=== PATIENT | female | born 1950 | race Caucasian/White ===

== ENCOUNTER → 2017-07-22 07:09 | Outpatient (CLI) | payer MEDICARE, OTHER, SELFPAY ==
--- NOTE | 2017-07-22 07:13 | NM_ITS ---
History and Indications: History of [place], hypertension, chest pain, palpitations and fatigue Procedure: Patient exercised on Eric protocol 7 minutes and 45 seconds, resting heart rate was 68 bpm resting blood pressure 146/85, with exercise maximum heart rate achieved was 1 47 bpm is equal to 96% of the maximum predicted heart rate and a blood pressure was 180/76. Test was stopped due to shortness of breath and fatigue, patient denied chest pain. Patient has good exercise capacity achieved 10.1mets of workload on treadmill, the blood pressure response to exercise was adequate. Electrocardiogram: Resting electrocardiogram showed sinus rhythm, with exercise there is less than 1.[address] segment depression noted from the baseline EKG. The EKG portion of the exercise Myoview is negative for ischemia. Cardiac stress and resting SPECT images: Cardiac stress and rest SPECT images were obtained using technetium 99 Myoview 10.2 mCi at rest and 31.6 mCi at stress, gated SPECT further analysis of segmental wall motion and calculation of the ejection fraction also done. Cardiac stress and the suspect images show uniform myocardial activity without any segmental perfusion abnormality, either derived ejection fraction is over 65% with no obvious regional wall motion abnormality, right ventricle is normal size and contractility. Conclusion: 1. The EKG portion of the exercise Myoview is negative for ischemia, patient has good exercise capacity achieved 10.1mets of workload on treadmill, the blood pressure response to exercise was adequate, there was no exercise-induced chest discomfort. 2. No obvious scintigraphic evidence of reversible ischemia seen, computer derived ejection fraction is over 65% with no obvious regional wall motion abnormality, right ventricle is normal size and contractility.
--- NOTE | 2017-07-22 07:13 | XR_ITS ---
XR chest 2V HISTORY: ITS.REASON: continued tobacco use, COPD ORDERING PHYSICIAN: Walker Knowles MD PATIENT AGE: 66 years COMPARISON: 10/13/2016 FINDINGS: The cardiomediastinal silhouette and pulmonary vascularity are within normal limits. The lungs are clear without infiltrates, suspicious nodules, or pleural effusions. There is hyperinflation with attenuation of peripheral pulmonary vessels consistent with obstructive chronic bronchitis No acute bony abnormalities. IMPRESSION: COPD, no acute finding
--- NOTE | 2017-07-22 07:55 | CA_ITS ---
PROCEDURE: 2-D M-mode and color Doppler study INDICATIONS FOR THE TEST: Chest pain COPD Heart Murmur Tobacco SmokingX Palpitations FatigueX Syncope Edema HypertensionXDiabetes Mellitus Rheumatic Fever SOB HANKINS Obesity HyperlipidemiaX Family History HD Additional History CAD 1 STENT PATIENT INFORMATION HEIGHT: 66 WEIGHT:115 GENDER: Female B/P:146/85 2-D/M-MODE INTERPRETATION: 2-D MEASUREMENTS OBSERVED VALUES IN CMS Right Ventricular Dimension (RVDd) 1.3 Interventricular Septum (Thickness)(IVsd) .7 Left Ventricular Internal Dimensions(LVIDd) 4.9 Left Ventricular Posterior Wall (Thickness)(LVPWd) .9 Aortic Root 2.0 Aortic Cusp Separation Left Atrial Dimensions (LAD) 2.2 2D 1. Left atrium is normal size, left ventricle is normal size, there is no concentric left ventricular hypertrophy, visually estimated ejection fraction 55% with no obvious regional wall motion abnormality. 2. The right atrium and right ventricle are mildly enlarged with normal contractility. 3. The aortic valve is minimally thickened and fibrosed. 4. The mitral and tricuspid valve are structurally normal. 5. The pulmonic valve is poorly visualized. 6. No significant pericardial effusion noted. DOPPLER INTERROGATION: Doppler interrogation of the aortic, mitral and tricuspid valvular presence of mild mitral and tricuspid regurgitation, calculated right ventricular systolic pressure is approximately 35 to 40 mmHg consistent with mild pulmonary hypertension. CONCLUSION: 1. Normal left ventricular size, preserved left ventricular systolic function, visually estimated ejection fraction 55% with no obvious regional wall motion abnormality. Diastolic parameters are inconclusive. 2. Mildly enlarged right ventricle with normal contractility. 3. Mild mitral and tricuspid regurgitation, calculated right ventricular systolic pressure is approximately 35 to 40 mmHg consistent with mild primary hypertension. 4. No significant pericardial effusion noted.
--- NOTE | 2017-07-22 09:34 | HMH.ITSHM ---
atorvastatin, calcium asa, lisionpril, bisoprolol
[2017-07-22 10:57] VITALS: PULSE 66; PULSE 76
== END ==
PROVIDERS: PCP Family Medicine; Visit Provider Internal Medicine
DX: Z95.5 Presence of coronary angioplasty implant and graft (principal); I25.10 Atherosclerotic heart disease of native coronary artery without angina pectoris; F17.200 Nicotine dependence, unspecified, uncomplicated; I10 Essential (primary) hypertension; E78.4 Other hyperlipidemia; J44.9 Chronic obstructive pulmonary disease, unspecified
CPT/HCPCS: 71046; 78452; 93017; 93306; 94060; 94640; 94726; 94729; A9502

== ENCOUNTER → 2017-11-04 12:19 | Outpatient (CLI) | payer MEDICARE, OTHER, SELFPAY ==
--- NOTE | 2017-11-04 12:28 | XR_ITS ---
XR chest 2V Ordering Physician: Ester Menchaca Patient Age: 67 years: Female HISTORY: ITS.REASON: WELL ADULT EXAM, TOBACCO USE smoker. COPD TECHNIQUE: PA and lateral chest COMPARISON : Prior chest film 10/13/2016 FINDINGS Again noted COPD with hyperexpansion along slight flattening of diaphragm and increased AP diameter on lateral view most evident. Relatively hyperlucent lungs throughout most evident towards apices. No pneumothorax. No pleural effusion. No focal lesion The heart, santiago and mediastinal structures unremarkable. . Mild atherosclerotic calcification aortic knob . Chest wall and T-spine appears intact.. IMPRESSION: Stable chest with Nothing definitely acute. No active cardiopulmonary disease Hyperexpansion reflecting COPD/emphysematous changes
== END ==
PROVIDERS: PCP Physician Assistant; Visit Provider Physician Assistant
DX: Z00.00 Encounter for general adult medical examination without abnormal findings (principal); Z72.0 Tobacco use
CPT/HCPCS: 71046

== ENCOUNTER → 2017-12-12 10:07 | Outpatient (CLI) | payer MEDICARE, OTHER, SELFPAY ==
[2017-12-13 09:03] LABS: Vitamin B12 822 pg/mL (232-1245)
== END ==
PROVIDERS: Visit Provider Physician Assistant
DX: E53.8 Deficiency of other specified B group vitamins (principal)
CPT/HCPCS: 36415; 82607

== ENCOUNTER → 2018-03-23 08:01 | Outpatient (CLI) | payer MEDICARE, OTHER, SELFPAY ==
--- NOTE | 2018-03-23 08:03 | CT_ITS ---
CT chest wo con HISTORY: Productive cough 3 weeks.. Smoker URI 4 weeks ago. Abnormal lung sounds. ITS.REASON: ABNORMAL LUNG SOUNDS, TOBACCO USE,ABNORMAL CHEST XRAY ORDERING PHYSICIAN: Ester Menchaca PATIENT AGE: 67 years COMPARISON: 2 view chest 5 08/27 and 03/05/2014, CT abdomen which includes lung bases from August 2015 Technique: No oral nor IV contrast utilized. Axial images obtained. Sagittal and coronal reformatted images are also generated and reviewed. All CT scans at the facility use one or more dose reduction, viz: automated exposure control, ma/kV adjustment per patient size (including targeted exams where dose is matched to indication, i.e. head), or iterative reconstruction technique. FINDINGS: LUNGS: No focal pneumonia or infiltrate. Hyperexpansion, COPD/ Emphysematous changes . Minimal scarring is scant fibrotic changes are seen at posterior sulcus region just above diaphragm.-Similar 2016 CT abdomen There is additional linear scarring and/or atelectasis seen at the inferior aspect the right middle lobe anteriorly, and just above the diaphragm.-Only new feature since 2016 Borderline airway thickening. No airway lesions evident No suspicious lung nodule or mass. Small Benign calcified granulomas bilaterally. : At periphery of RLL just adjacent to the major fissure right midlung, there is a subpleural 4.5 mm calcified granuloma axial image 49. At the L UL axial 34, there is a 4X 4.5 mm benign calcified granuloma. Associated small calcified hilar granulomas nodes, with a larger calcified node subcarinal region-the latter measuring 13 mm x 8 mm. Pleural spaces: No significant effusion. No evidence of pneumothorax. No significant mediastinal or hilar adenopathy otherwise.. Great vessels satisfactory. Ascending aorta generous with satisfactory. .. Heart is normal in size. No pericardial effusion. Coronary artery stents and calcifications noted Uppermost abdomen is stable since 2016. BONY STRUCTURES: No acute bony abnormalities apparent. T-spine intact. No significant rib findings chest wall unremarkable thin patient IMPRESSION: No acute infiltrate or findings... No focal pneumonia. No airway lesion. No significant lung mass nor lesion evident.... Hyperexpansion, COPD/. Emphysematous changes again noted (Only minimal additional linear scarring at the anterior right base since 2016) (Note: If 30 pack-year smoking history patient may qualify for annual screening screening low-dose chest CT)
== END ==
PROVIDERS: PCP Physician Assistant; Visit Provider Physician Assistant
DX: R09.89 Other specified symptoms and signs involving the circulatory and respiratory systems (principal); R93.89 Abnormal findings on diagnostic imaging of other specified body structures; Z72.0 Tobacco use
CPT/HCPCS: 71250

== ENCOUNTER → 2018-07-05 11:35 | Outpatient (CLI) | payer MEDICARE, OTHER, SELFPAY ==
[2018-07-05 12:56] LABS: Alanine Aminotransferase 32 U/L (12-78); Albumin Level 3.8 gm/dL (3.4-5.0); Alkaline Phosphatase 140 U/L (46-116); Aspartate Amino Transferase 23 U/L (15-37); Bilirubin,Direct 0.3 mg/dL (0.0-0.2); Bilirubin,Indirect 0.9 mg/dL (0.0-0.9); Bilirubin,Total 1.2 mg/dL (0.2-1.0); Chol/HDL Ratio 2.5 (1-3.5); Cholesterol 141 mg/dL (140-200); HDL Cholesterol 56 mg/dL (29-89); LDL Cholesterol 73 mg/dL (0-130); Triglycerides 62 mg/dL (30-200); VLDL Cholesterol 12 mg/dL (0-40)
== END ==
PROVIDERS: Visit Provider Internal Medicine
DX: I10 Essential (primary) hypertension; I25.10 Atherosclerotic heart disease of native coronary artery without angina pectoris; J44.9 Chronic obstructive pulmonary disease, unspecified; R00.2 Palpitations; Z95.5 Presence of coronary angioplasty implant and graft; E78.49 Other hyperlipidemia
CPT/HCPCS: 36415; 80061; 80076; 93225; 93226

== ENCOUNTER 2018-07-08 14:13 | Observation (INO) ==
--- NOTE | 2018-07-08 14:27 | Emergency Department Note ---
ED Disposition Clinical Impression: Alcohol use disorder, Anemia, Hypokalemia, Generalized muscle weakness Disposition: Still a Patient Condition on Discharge: Fair Referrals: Provider,Referral, [Primary Care Provider] - - Critical Care Critical Care Time: No Attestation: On 07/08/18, the high probability of a clinically significant, sudden or life threatening deterioration of the following system(s) required my full and direct attention, intervention and personal management. The time I documented below is in addition to time spent performing reported procedures but includes the following listed in this critical care notation. Medical Decision Making - Medical Records Medical records reviewed: Yes: I reviewed the patient's medical records. - Keny Inquiry Pt receiving controlled substance: No Keny was queried for this patient: No Vital Signs: 07/08/18 14:14 Temperature 97.8 F Temperature Source Oral Pulse Rate [Right Radial] 67 Respiratory Rate 20 Blood Pressure [Right Arm] 147/57 H Blood Pressure Mean [Right Arm] 87 02 Sat by Pulse Oximetry 99 Oxygen Delivery Method Room Air - Lab Data Lab Results 07/08/18 14:18: WBC 5.8, RBC 3.53 L, Hgb 11.1 L, Hct 35.1 L, MCV 99.5 H, MCH 31.4 H, MCHC 31.6 L, RDW 14.2, Plt Count 320, MPV 8.0, Neut % (Auto) 56.6, Lymph % (Auto) 36.2, Letcher % (Auto) 5.7, Eos % (Auto) 1.2, Baso % (Auto) 0.3, Neut # (Auto) 3.3, Lymph # (Auto) 2.1, Letcher # (Auto) 0.3, Eos # (Auto) 0.1, Baso # (Auto) 0.0 07/08/18 14:18: Sodium 140, Potassium 2.7 L*, Chloride 103, Carbon Dioxide 21, Anion Gap 15.7 H, BUN 7, Creatinine 0.62, Estimated Creat Clear 31, Estimated GFR 96, Est GFR ( Amer) 116, Glucose 101, Calcium 8.5, Total Bilirubin 0.8, AST 20, ALT 25, Alkaline Phosphatase 138 H, Total Creatine Kinase 60, Troponin I < 0.02, Total Protein 6.0 L, Albumin 3.5, Globulin 2.5, Albumin/Globulin Ratio 1.4, Salicylates 1.0 L, Acetaminophen 7.8 L, Plasma/Serum Alcohol 160 H 07/08/18 14:18: Magnesium 2.0 07/08/18 14:38: Urine Opiates Screen Negative, Urine Methadone Screen Negative, Ur Barbituates Screen Negative, Ur Phencyclidine Scrn Negative, Ur Amphetamines Screen Negative, U Benzodiazepines Scrn Negative, Urine Cocaine Screen Negative, U Marijuana (THC) Screen Negative 07/08/18 14:38: Urine Color Yellow, Urine Appearance Clear, Urine pH 6.5, Ur Specific [place] <= 1.005, Urine Protein Negative, Urine Glucose (UA) Negative, Urine Ketones Negative, Urine Blood Negative, Urine Nitrate Negative, Urine Bilirubin Negative, Urine Urobilinogen 0.2, Ur Leukocyte Esterase Negative, Urine WBC Occasional, Ur Squamous Epith Cells Occasional, Urine Bacteria Trace Result diagrams: 07/08/18 14:18 07/08/18 14:18 Orders (Tests/Meds): ED MEDICATIONS Generic Name Dose Route Start Last Admin Trade Name Freq PRN Reason Stop Dose Admin Sodium Chloride 1,000 mls @ 999 mls/hr 07/08/18 15:00 07/08/18 15:01 Sod Chlor 0.9% 1000ml Bag IV 07/08/18 16:00 999 mls/hr .Q1H1M ANA LUISA Administration Discontinued Medications Generic Name Dose Route Start Last Admin Trade Name Freq PRN Reason Stop Dose Admin Potassium Chloride 20 meq 07/08/18 15:24 Klor-Con 20meq Tablet PO 07/08/18 15:25 ONCE ONE ORDERS Category Date Time Status Acetaminophen Stat Lab 07/08/18 14:18 Results Cardiac Enzymes Stat Lab 07/08/18 14:18 Results Comprehensive Metabolic Panel Stat Lab 07/08/18 14:18 Results Ethyl Alcohol Stat Lab 07/08/18 14:18 Results Salicylate Stat Lab 07/08/18 14:18 Results UA [Urinalysis and Microscopic] Stat Lab 07/08/18 14:38 Ordered ABG [Arterial Blood Gas] Stat RT 07/08/18 14:30 Ordered - CT Data CT Scan: Head Time Received: 15:[address] Reviewed: Yes: I have viewed the radiologist's interpretation Preliminary Findings: Abnormal Findings Narrative: IMPRESSION:........................... 1. No Acute Intracranial Findings. . No Hemorrhage. No Territorial Infarct. 2. Diffuse cerebral atrophy. 3.. Also note a ovoid 9 mm CSF density at floor of left basal ganglia..- This is an remote OLD feature: either reflecting small old lacunar infarct vs merely prominent perivascular space.. . 4. Additional observation: Previous Left Mastoid Antrectomy with diffuse mastoid effusion involving left mastoid tip air cells & posterior left mastoid air cells. The more superior left mastoid air cells are clear. Middle ear clear bilaterally.. - ECG Data Tracing #1 Normal sinus rhythm 68/min normal ST segment and T waves no acute finding. Normal EKG. ECG initial impression date: 07/08/18 ECG initial impression time: 14:15 Medical Decision Narrative: The patient remained hemodynamically stable but generally weak although she was able tp withdraw her legs with when her neurological exam was repeated, her alcohol level was 160 and her potassium was 2.7. I sopke with Dr Alejandra who agreed to admit her for IV potassium replacement and neuro checks. Altered Mental Status HPI - General Stated Complaint: weakness Time Seen by Provider: 07/08/18 14:15 Mode of Arrival: Family Vehicle - History of Present Illness HPI narrative: 67 years old white female who was last witnessed normal 4 hours ago and she drank 2 beams 'WhiskY". She became unable to function told her to take her to the ER. She denies having chest pain palpation shortness of breath nausea vomiting diarrhea. She chills dysuria hematuria frequency but there is no numbness or tingling involving the upper or lower extremities. MD complaint: weakness Onset (ago): hour(s) Time: 10:00 Timing confirmed by: spouse Severity: moderate Consistency of symptoms: constant Context: alcohol abuse Associated symptoms: denies other symptoms - Related Data Home Medications Medication Instructions Recorded Confirmed multivitamin tablet 1 tab PO QAM 08/02/17 07/05/18 aspirin 81 mg tablet,delayed 81 mg PO DAILY tab 11/01/17 07/05/18 release enoxaparin 40 mg/0.4 mL 40 mg SQ DAILY 07/05/18 07/05/18 subcutaneous syringe Previous Rx's Medication Instructions Recorded Tramadol HCl [Ultram 50mg 50 mg PO Q6HP PRN #10 tab 05/21/18 tablet] atorvastatin 80 mg tablet 80 mg PO DAILY #90 tab 07/07/18 Allergies Allergy/AdvReac Type Severity Reaction Status Date / Time amoxicillin [AMOXICILLIN] Allergy Intermediate I-HIVES Verified 07/08/18 14:26 Sulfa (Sulfonamide Allergy Unknown I-HIVES Verified 07/08/18 14:26 Antibiotics) [SULFA (SULFONAMIDE ANTIBIOTICS)] [facility] History - Hepatitis A Screen Attestation statement:: This patient has been screened for Hepatitis A risk factors. I have reviewed the patient's past medical history: Yes Medical History: Reports:: Chronic Obstructive Pulmonary Disease (COPD), Coronary Artery Disease, Gastroesophageal Reflux Disease(GERD), Hyperlipidemia, Hypertension, Myocardial Infarction Other Medical History: Reports: Anemia, Arthritis Laterality Cases: Right: Arthroscopy Hip, Bilateral: Arthroscopy Knee Other Surgeries: Yes: Coronary Stent, Hysterectomy-Total, Other - Social History Smoking Status: Current every day smoker Tobacco Type: cigarettes Alcohol Intake: never Alcohol Intake Frequency:: a few times a month Substance Use Type: denies use Occupational Status: retired Family Hx:: Coronary Artery Disease ROS Obtained: Yes All systems reviewed & no additional complaints Physical Exam - General General appearance: alert, in no apparent distress, appears intoxicated - Head Head exam: atraumatic, normocephalic, normal inspection - Eye Eye exam: Present: normal appearance, PERRL, EOMI. Absent: scleral icterus, nystagmus - ENT ENT exam: Present: normal exam, normal oropharynx, mucous membranes moist, TM's normal bilaterally, normal external ear exam - Neck Neck exam: Present: normal inspection, full ROM, trachea midline. Absent: tenderness, meningismus, lymphadenopathy - Chest Chest inspection: Present: normal inspection, symmetric chest wall rise. Absent: tenderness - Respiratory Respiratory exam: Present: normal lung sounds bilaterally. Absent: respiratory distress, wheezes, stridor - Cardiovascular Cardiovascular exam: Present: regular rate, normal rhythm, normal heart sounds. Absent: JVD - Abdominal Exam Abdominal exam: Present: soft, normal bowel sounds. Absent: distention, tenderness, guarding, rebound, rigidity - Extremities Exam Extremities exam: Present: normal inspection, full ROM, normal capillary refill. Absent: tenderness, pedal edema, joint swelling, calf tenderness - Back Exam Back exam: Present: normal inspection. Absent: tenderness, CVA tenderness (R), CVA tenderness (L), paraspinal tenderness, vertebral tenderness - Neurological Exam Neurological exam: Present: alert, CN II-XII intact, reflexes normal, other (Patient speaks fluently not cough for examination, she moves for extremity while having a catheterization, intact pinprick sensation to 4 extremities, she had bilateral lower extremity withdrawals to Babinski. ) - Psychiatric Psychiatric exam: Present: normal affect, normal mood - Skin Skin exam: Present: warm, dry, intact, normal color - Lymphatic Lymphatic Findings: no adenopathy
[2018-07-08 14:38] LABS: Basophils % 0.3 % (0.1-2.0); Eosinophils # 0.1 K/mm3 (0.0-0.4); Eosinophils % 1.2 % (0.1-12.0); Hematocrit 35.1 % (37.0-47.0); Hemoglobin 11.1 g/dL (12.2-16.2); Lymphocytes # 2.1 K/mm3 (0.7-4.5); Lymphocytes % 36.2 % (10-50); Mean Corpuscular HGB Conc 31.6 g/dL (31.8-35.4); Mean Corpuscular Hemoglobin 31.4 pg (27.0-31.2); Mean Corpuscular Volume 99.5 fl (81-99); Monocytes # 0.3 K/mm3 (0.1-1.0); Monocytes % 5.7 % (1.7-9.3); Neutrophils # 3.3 K/mm3 (1.8-7.8); Neutrophils % 56.6 % (37.0-80.0); Platelet Count 320 K/mm3 (142-424); Red Blood Count 3.53 M/mm3 (4.20-5.40); Red Cell Distribution Width 14.2 % (11.5-17.5); White Blood Count 5.8 K/mm3 (4.8-10.8)
[2018-07-08 14:43] LABS: Microscopic, Urine URINE MICROSCOPIC (MICROSCOPIC)
[2018-07-08 14:45] LABS: Appearance,Urine CLEAR (Clear); Bilirubin,Urine Negative (Negative); Blood, Urine Negative (Negative); Color,Urine YELLOW (Yellow); Glucose,Urine (UA) Negative (Negative); Ketones,Urine Negative (Negative); Leukocyte Esterase,Urine Negative (Negative); PH,Urine 6.5 (5.0-8.5); Protein,Urine Negative (Negative); Specific Gravity, Urine <= 1.005 (1.005-1.030); Urobilinogen,Urine 0.2 EU/dl (0.2)
[2018-07-08 14:54] LABS: Amphetamine/Metha Screen,Urine Negative ng/mL (<1000); Barbiturates Screen,Urine Negative ng/mL (<200); Benzodiazepines Screen,Urine Negative ng/mL (<200); Cannabinoid Screen,Urine Negative ng/mL (<50); Cocaine Screen,Urine Negative ng/mL (<300); Methadone Screen,Urine Negative ng/mL (<300); Opiate Screen,Urine Negative ng/mL (<300); Phencyclidine Screen,Urine Negative ng/mL (<25)
[2018-07-08 15:06] LABS: Bacteria,Urine Trace /lpf; Squamous Epithelial Cell,Urine Occasional #/hpf (0-5); WBC,Urine Occasional #/hpf (0-3)
[2018-07-08 15:21] LABS: Bilirubin,Total 0.8 mg/dL (0.2-1.0); Blood Urea Nitrogen 7 mg/dL (7-18); Calcium 8.5 mg/dL (8.5-10.1); Carbon Dioxide 21 mmol/L (21.0-32.0); Chloride 103 mmol/L (98-107); Creatine Kinase 60 U/L (26-192); Glucose 101 mg/dL (74-106); Sodium 140 mmol/L (136-145)
[2018-07-08 15:22] LABS: Acetaminophen 7.8 ug/mL (10-30); Alanine Aminotransferase 25 U/L (12-78); Albumin Level 3.5 gm/dL (3.4-5.0); Albumin/Globulin Ratio 1.4 (1.1-1.8); Alkaline Phosphatase 138 U/L (46-116); Aspartate Amino Transferase 20 U/L (15-37); Ethyl Alcohol 160 mg/dL (0-99); Globulin 2.5 gm/dl (1.3-3.2)
[2018-07-08 15:37] LABS: Potassium 2.7 mmoL/L (3.5-5.1)
[2018-07-08 15:39] LABS: Anion Gap 18.7 mEq/L (5-15)
[2018-07-08 16:02] LABS: ABG Base Excess -4.8 mmol/L (-2.4-2.3); ABG Oxygen Saturation 98 % (90-100); ABG PCO2 33.4 mmhg (35.0-45.0); ABG PO2 119.9 mmhg (80-100); ABG TCO2 21.1 mmhg (23-27); Allen's Test Acceptable; Oxygen ROOM AIR %
[2018-07-09 06:31] LABS: Basophils % 0.2 % (0.1-2.0); Eosinophils # 0.1 K/mm3 (0.0-0.4); Eosinophils % 1.7 % (0.1-12.0); Hematocrit 31.5 % (37.0-47.0); Lymphocytes # 1.3 K/mm3 (0.7-4.5); Lymphocytes % 28.8 % (10-50); Mean Corpuscular HGB Conc 31.4 g/dL (31.8-35.4); Mean Platelet Volume 8.6 fl (7.4-10.4); Monocytes # 0.3 K/mm3 (0.1-1.0); Monocytes % 6.1 % (1.7-9.3); Neutrophils # 2.9 K/mm3 (1.8-7.8); Neutrophils % 63.1 % (37.0-80.0); Platelet Count 258 K/mm3 (142-424); Red Blood Count 3.18 M/mm3 (4.20-5.40); Red Cell Distribution Width 14.4 % (11.5-17.5); White Blood Count 4.6 K/mm3 (4.8-10.8)
[2018-07-09 06:33] LABS: Hemoglobin 9.9 g/dL (12.2-16.2)
[2018-07-09 07:00] LABS: Anion Gap 11.4 mEq/L (5-15); Calcium 8.6 mg/dL (8.5-10.1); Free T4 (Free Thyroxine) 1.03 ng/dl (0.76-1.46); Potassium 4.4 mmoL/L (3.5-5.1); Thyroid Stimulating Hormone 1.94 uIU/ml (0.358-3.740)
--- NOTE | 2018-07-09 08:55 | H&P/Discharge Summary ---
General - General Admission date:: 07/08/18 Discharge date: 07/09/18 *Admission Date: 07/08/18 *Chief complaint: Weakness *History of present illness: 67-year-old white female presented to the ED after feeling weakness and almost paralysis to a point where she cannot move. She mentioned that she went to a casino yesterday had a 2 Jacob Beam whiskey with coke. She was playing the slot machines and noticed that he is not able to move her extremities and was unable to function. She told her to take her to the ER. She denied having any chest pain, palpitation, shortness of breath, nausea, vomiting, and diarrhea. She denied having any numbness or tingling sensation in the upper or lower extremities bilaterally. She also mentions that she have had this drink before and had no problems. In the ED most of her workup was within normal limits except her potassium was extremely low at 2.7. [facility] History I have reviewed the patient's past medical history: Yes Medical History: Reports:: Chronic Obstructive Pulmonary Disease (COPD), Coronary Artery Disease, Gastroesophageal Reflux Disease(GERD), Hyperlipidemia, Hypertension, Myocardial Infarction Denies:: Cancer, Diabetes Mellitus Type 1, Diabetes Mellitus Type 2, MRSA Have you ever received a pneumonia vaccine?: Yes Have you received a flu vaccine this season?: Yes Other Medical History: Reports: Anemia, Arthritis, Cataracts Laterality Cases: Right: Arthroscopy Hip, Other, Bilateral: Arthroscopy Knee, Tonsillectomy Other Surgeries: Yes: Coronary Stent, Hysterectomy-Total, Other Amputation: No Fractures: Yes (femur) - *Social History Educational Level: Completed High School Smoking Status: Current every day smoker Tobacco Type: cigarettes Alcohol Intake: current Alcohol Intake Frequency:: a few times a week Substance Use Type: denies use Occupational Status: retired Housing: house Household Members: spouse Travel in the last 8 weeks: None - Psychiatric History Expresses thoughts of harming self/others: None Suicide Plan Description: No Plan *Family Hx:: Coronary Artery Disease Review of Systems - Constitutional Reports lack of energy - Eyes Denies blind spots, Denies blurry vision, Denies change in vision - ENT Denies abnormal hearing, Denies neck pain, Denies nose pain - *Cardiovascular Denies chest pain, Denies chest pain at rest, Denies chest pain with activity - *Respiratory Denies change in phlegm color, Denies chest congestion, Denies cough - *Gastrointestinal Denies abdominal pain, Denies belching - *Musculoskeletal Denies stiffness - Integumentary/Breasts Denies hair loss - *Neurologic Denies abnormal walking - Psychiatric Denies abnormal sleep pattern - Endocrine Denies cold intolerance - Hematologic/Lymphatic Denies easy bleeding - Allergic/Immunologic Denies GI upset with certain foods Exam Vital signs and Labs for Last 24 Hours: Temp Pulse Resp BP Pulse Ox 98.3 F 67 15 118/63 98 07/09/18 04:00 07/09/18 04:00 07/09/18 04:00 07/09/18 04:00 07/09/18 04:00 Laboratory Results - last 24 hr 07/08/18 14:18: WBC 5.8, RBC 3.53 L, Hgb 11.1 L, Hct 35.1 L, MCV 99.5 H, MCH 31.4 H, MCHC 31.6 L, RDW 14.2, Plt Count 320, MPV 8.0, Neut % (Auto) 56.6, Lymph % (Auto) 36.2, [place] % (Auto) 5.7, Eos % (Auto) 1.2, Baso % (Auto) 0.3, Neut # (Auto) 3.3, Lymph # (Auto) 2.1, [place] # (Auto) 0.3, Eos # (Auto) 0.1, Baso # (Auto) 0.0 07/08/18 14:18: Sodium 140, Potassium 2.7 L*, Chloride 103, Carbon Dioxide 21, Anion Gap 18.7 H, BUN 7, Creatinine 0.62, Estimated Creat Clear 31, Estimated GFR 96, Est GFR ( Amer) 116, Glucose 101, Calcium 8.5, Total Bilirubin 0.8, AST 20, ALT 25, Alkaline Phosphatase 138 H, Total Creatine Kinase 60, CK-MB (CK-2) 0.9, CK-MB (CK-2) Rel Index 1.5, Troponin I < 0.02, Total Protein 6.0 L, Albumin 3.5, Globulin 2.5, Albumin/Globulin Ratio 1.4, Salicylates 1.0 L, Acetaminophen 7.8 L, Plasma/Serum Alcohol 160 H 07/08/18 14:18: Magnesium 2.0 07/08/18 14:38: Urine Opiates Screen Negative, Urine Methadone Screen Negative, Ur Barbituates Screen Negative, Ur Phencyclidine Scrn Negative, Ur Amphetamines Screen Negative, U Benzodiazepines Scrn Negative, Urine Cocaine Screen Negative, U Marijuana (THC) Screen Negative 07/08/18 14:38: Urine Color Yellow, Urine Appearance Clear, Urine pH 6.5, Ur Specific [place] <= 1.005, Urine Protein Negative, Urine Glucose (UA) Negative, Urine Ketones Negative, Urine Blood Negative, Urine Nitrate Negative, Urine Bilirubin Negative, Urine Urobilinogen 0.2, Ur Leukocyte Esterase Negative, Urine WBC Occasional, Ur Squamous Epith Cells Occasional, Urine Bacteria Trace 07/08/18 15:30: Specimen Source Right radial, O2 % Room air, ABG pH 7.40, ABG pCO2 33.4 L, ABG pO2 119.9 H, ABG HCO3 20.0 L, ABG Total CO2 21.1 L, ABG O2 Saturation 98, ABG Base Excess -4.8 L, Jamel Test Acceptable 07/09/18 06:22: WBC 4.6 L, RBC 3.18 L, Hgb 9.9 L D, Hct 31.5 L, MCV 99.0, MCH 31.0, MCHC 31.4 L, RDW 14.4, Plt Count 258, MPV 8.6, Neut % (Auto) 63.1, Lymph % (Auto) 28.8, [place] % (Auto) 6.1, Eos % (Auto) 1.7, Baso % (Auto) 0.2, Neut # (Auto) 2.9, Lymph # (Auto) 1.3, [place] # (Auto) 0.3, Eos # (Auto) 0.1, Baso # (Auto) 0.0 07/09/18 06:22: Sodium 143, Potassium 4.4 D, Chloride 110 H, Carbon Dioxide 26 D, Anion Gap 11.4, BUN 4 L D, Creatinine 0.46 L D, Estimated Creat Clear 46, Estimated GFR 135, Est GFR ( Amer) 163 D, Glucose 101, Calcium 8.6, Magnesium 2.1, TSH 1.94, Free T4 1.03, Plasma/Serum Alcohol 0 I & O for Last 24 hours: Intake & Output 07/06/18 07/07/18 07/08/18 07/09/18 11:59 11:59 11:59 11:59 Intake Total 1920 / 1920 Output Total 1450 / 1450 Balance 470 / 470 Weight 118 lb 5 oz - *Routine HEENT Exam Head: Present: normocephalic Eye: Present: EOMI, PERRL ENT: Present: mucous membranes moist - *Routine Neck Exam Present: supple, full ROM - *Routine Respiratory Exam Present: CTA bilaterally - *Routine Cardiovascular Exam Present: RRR - *Routine Abdominal Exam Present: soft, normoactive bowel sounds. Absent: tenderness - *Routine Extremities Exam Present: full ROM, normal capillary refill. Absent: edema - *Routine Skin Exam Present: intact - *Routine Neurological Exam Present: alert, oriented X3, moving all extremities, normal tone. Absent: motor deficit, altered mental status - Routine Psychiatric Exam Present: normal affect Hospital Course Hospital Course: She was admitted to our ED for hypokalemic periodic paralysis with a potassium of 2.7. Workup for hypokalemia was negative so this could be secondary to dietary insufficiency. Overnight she got D5 half-normal saline with 40 of potassium. On 07/09/2018 her potassium was 4.4. Patient's symptoms have completely resolved at this time. Patient is to be discharged home today. I advised her strongly to follow-up with her family doctor in [place] for a repeat potassium in 1 week. Also advised that she might have to take potassium supplements daily if her potassium is low on the outpatient basis. Patient voiced understanding to all the above. Results Labs on day of discharge: Labs from last 24 hours 07/09/18 07/09/18 07/08/18 06:22 06:22 15:30 WBC 4.6 L RBC 3.18 L Hgb 9.9 L D Hct 31.5 L MCV 99.0 MCH 31.0 MCHC 31.4 L RDW 14.4 Plt Count 258 MPV 8.6 Neut % (Auto) 63.1 Lymph % (Auto) 28.8 [place] % (Auto) 6.1 Eos % (Auto) 1.7 Baso % (Auto) 0.2 Neut # (Auto) 2.9 Lymph # (Auto) 1.3 [place] # (Auto) 0.3 Eos # (Auto) 0.1 Baso # (Auto) 0.0 Specimen Source Right radial O2 % Room air ABG pH 7.40 ABG pCO2 33.4 L ABG pO2 119.9 H ABG HCO3 20.0 L ABG Total CO2 21.1 L ABG O2 Saturation 98 ABG Base Excess -4.8 L Jamel Test Acceptable Sodium 143 Potassium 4.4 D Chloride 110 H Carbon Dioxide 26 D Anion Gap 11.4 BUN 4 L D Creatinine 0.46 L D Estimated Creat Clear 46 Estimated GFR 135 Est GFR ( Amer) 163 D Glucose 101 Calcium 8.6 Magnesium 2.1 Total Bilirubin AST ALT Alkaline Phosphatase Total Creatine Kinase CK-MB (CK-2) CK-MB (CK-2) Rel Index Troponin I Total Protein Albumin Globulin Albumin/Globulin Ratio TSH 1.94 Free T4 1.03 Urine Color Urine Appearance Urine pH Ur Specific [place] Urine Protein Urine Glucose (UA) Urine Ketones Urine Blood Urine Nitrate Urine Bilirubin Urine Urobilinogen Ur Leukocyte Esterase Urine WBC Ur Squamous Epith Cells Urine Bacteria Salicylates Urine Opiates Screen Urine Methadone Screen Acetaminophen Ur Barbituates Screen Ur Phencyclidine Scrn Ur Amphetamines Screen U Benzodiazepines Scrn Urine Cocaine Screen U Marijuana (THC) Screen Plasma/Serum Alcohol 0 07/08/18 07/08/18 07/08/18 14:38 14:38 14:18 WBC RBC Hgb Hct MCV MCH MCHC RDW Plt Count MPV Neut % (Auto) Lymph % (Auto) [place] % (Auto) Eos % (Auto) Baso % (Auto) Neut # (Auto) Lymph # (Auto) [place] # (Auto) Eos # (Auto) Baso # (Auto) Specimen Source O2 % ABG pH ABG pCO2 ABG pO2 ABG HCO3 ABG Total CO2 ABG O2 Saturation ABG Base Excess Jamel Test Sodium Potassium Chloride Carbon Dioxide Anion Gap BUN Creatinine Estimated Creat Clear Estimated GFR Est GFR ( Amer) Glucose Calcium Magnesium 2.0 Total Bilirubin AST ALT Alkaline Phosphatase Total Creatine Kinase CK-MB (CK-2) CK-MB (CK-2) Rel Index Troponin I Total Protein Albumin Globulin Albumin/Globulin Ratio TSH Free T4 Urine Color Yellow Urine Appearance Clear Urine pH 6.5 Ur Specific [place] <= 1.005 Urine Protein Negative Urine Glucose (UA) Negative Urine Ketones Negative Urine Blood Negative Urine Nitrate Negative Urine Bilirubin Negative Urine Urobilinogen 0.2 Ur Leukocyte Esterase Negative Urine WBC Occasional Ur Squamous Epith Cells Occasional Urine Bacteria Trace Salicylates Urine Opiates Screen Negative Urine Methadone Screen Negative Acetaminophen Ur Barbituates Screen Negative Ur Phencyclidine Scrn Negative Ur Amphetamines Screen Negative U Benzodiazepines Scrn Negative Urine Cocaine Screen Negative U Marijuana (THC) Screen Negative Plasma/Serum Alcohol 07/08/18 07/08/18 14:18 14:18 WBC 5.8 RBC 3.53 L Hgb 11.1 L Hct 35.1 L MCV 99.5 H MCH 31.4 H MCHC 31.6 L RDW 14.2 Plt Count 320 MPV 8.0 Neut % (Auto) 56.6 Lymph % (Auto) 36.2 [place] % (Auto) 5.7 Eos % (Auto) 1.2 Baso % (Auto) 0.3 Neut # (Auto) 3.3 Lymph # (Auto) 2.1 [place] # (Auto) 0.3 Eos # (Auto) 0.1 Baso # (Auto) 0.0 Specimen Source O2 % ABG pH ABG pCO2 ABG pO2 ABG HCO3 ABG Total CO2 ABG O2 Saturation ABG Base Excess Jamel Test Sodium 140 Potassium 2.7 L* Chloride 103 Carbon Dioxide 21 Anion Gap 18.7 H BUN 7 Creatinine 0.62 Estimated Creat Clear 31 Estimated GFR 96 Est GFR ( Amer) 116 Glucose 101 Calcium 8.5 Magnesium Total Bilirubin 0.8 AST 20 ALT 25 Alkaline Phosphatase 138 H Total Creatine Kinase 60 CK-MB (CK-2) 0.9 CK-MB (CK-2) Rel Index 1.5 Troponin I < 0.02 Total Protein 6.0 L Albumin 3.5 Globulin 2.5 Albumin/Globulin Ratio 1.4 TSH Free T4 Urine Color Urine Appearance Urine pH Ur Specific [place] Urine Protein Urine Glucose (UA) Urine Ketones Urine Blood Urine Nitrate Urine Bilirubin Urine Urobilinogen Ur Leukocyte Esterase Urine WBC Ur Squamous Epith Cells Urine Bacteria Salicylates 1.0 L Urine Opiates Screen Urine Methadone Screen Acetaminophen 7.8 L Ur Barbituates Screen Ur Phencyclidine Scrn Ur Amphetamines Screen U Benzodiazepines Scrn Urine Cocaine Screen U Marijuana (THC) Screen Plasma/Serum Alcohol 160 H - Impressions Laboratory Tests 07/08/18 07/09/18 14:18 06:22 Potassium 2.7 L* 4.4 D DS: Diagnosis - Discharge Diagnosis (1) Hypokalemic periodic paralysis Status: Acute (2) CAD (coronary artery disease) Status: Chronic (3) Chronic obstructive lung disease Status: Chronic (4) Hyperlipidemia Status: Chronic (5) Smoker Status: Chronic Discharge Medications - Medications for Discharge Home Medication List at Discharge: Continue aspirin 81 mg tablet,delayed release 81 mg PO DAILY tab enoxaparin 40 mg/0.4 mL subcutaneous syringe 40 mg SQ DAILY atorvastatin 80 mg tablet 80 mg PO DAILY #90 tab Tramadol HCl [Ultram 50mg tablet] 50 mg PO Q6HP PRN #10 tab PRN Reason: Pain No Action multivitamin tablet 1 tab PO QAM Disposition Disposition: Home, Self-Care
--- NOTE | 2018-07-09 08:58 | Pharmacy Consult Notes ---
[facility] Pharmacy VTE Monitoring - Patient Demographics Admission date: 07/08/18 Report Date: 07/09/18 Time: 08:58 Allergies/Adverse Reactions: Patient Allergies amoxicillin [AMOXICILLIN] Allergy (Intermediate, Verified 07/08/18 14:26) I-HIVES Sulfa (Sulfonamide Antibiotics) [SULFA (SULFONAMIDE ANTIBIOTICS)] Allergy (Unknown, Verified 07/08/18 14:26) I-HIVES Height: 1.68 m Weight: 53.666 kg Patient Problems: Current Active Problems Alcohol use disorder (Acute) Anemia (Acute) Hypokalemia (Acute) Generalized muscle weakness (Acute) - VTE Risk Labs: VTE Related Lab Results Hgb 9.9 g/dL (12.2-16.2) L D 07/09/18 06:22 Hct 31.5 % (37.0-47.0) L 07/09/18 06:22 Plt Count 258 K/mm3 (142-424) 07/09/18 06:22 BUN 4 mg/dL (7-18) L D 07/09/18 06:22 Creatinine 0.46 mg/dL (0.55-1.02) L D 07/09/18 06:22 Estimated Creat Clear 46 mL/min (50-200) 07/09/18 06:22 VTE Score: 2 - Prophylaxis VTE Prophylaxis Ordered?: Yes Types of VTE Prophylaxis: TEDS Knee High Location of Applied Device: Bilateral Lower Extremeties
== END 2018-07-09 10:01 | disposition home or self-care (01) ==
LOC: ER 14:13 → 2ND 14:13
PROVIDERS: ADMIT Emergency Medicine; ATTEND Emergency Medicine
CPT/HCPCS: 36415; 70450; 80048; 80053; 80305; 80329; 81001; 82550; 82553; 82803; 83735; 84439; 84443; 84484; 85025; 93005; 96365; 99281; G0378

== ENCOUNTER → 2018-07-18 10:39 | Outpatient (CLI) | payer MEDICARE, OTHER, SELFPAY ==
[2018-07-18 13:34] LABS: Basophils % 0.2 % (0.1-2.0); Eosinophils # 0.1 K/mm3 (0.0-0.4); Eosinophils % 2.2 % (0.1-12.0); Hematocrit 39.3 % (37.0-47.0); Hemoglobin 12.5 g/dL (12.2-16.2); Lymphocytes # 1.8 K/mm3 (0.7-4.5); Lymphocytes % 33.1 % (10-50); Mean Corpuscular HGB Conc 31.9 g/dL (31.8-35.4); Mean Corpuscular Hemoglobin 31.3 pg (27.0-31.2); Mean Platelet Volume 7.5 fl (7.4-10.4); Monocytes # 0.3 K/mm3 (0.1-1.0); Monocytes % 5.3 % (1.7-9.3); Neutrophils # 3.2 K/mm3 (1.8-7.8); Neutrophils % 59.2 % (37.0-80.0); Platelet Count 287 K/mm3 (142-424); Red Blood Count 4.01 M/mm3 (4.20-5.40); Red Cell Distribution Width 14.1 % (11.5-17.5); White Blood Count 5.4 K/mm3 (4.8-10.8)
[2018-07-18 13:42] LABS: Alanine Aminotransferase 26 U/L (12-78); Albumin Level 4.2 gm/dL (3.4-5.0); Alkaline Phosphatase 169 U/L (46-116); Aspartate Amino Transferase 18 U/L (15-37); Bilirubin,Total 1.3 mg/dL (0.2-1.0); Blood Urea Nitrogen 9 mg/dL (7-18); Calcium 9.4 mg/dL (8.5-10.1); Carbon Dioxide 27 mmol/L (21.0-32.0); Chloride 102 mmol/L (98-107); Creatinine,Serum 0.56 mg/dL (0.55-1.02); Estimated Glomerular Filt Rate 108 ml/min (>60); GFR (African American) 130 ML/MIN (>60); Globulin 2.1 gm/dl (1.3-3.2); Glucose 91 mg/dL (74-106); Sodium 142 mmol/L (136-145); Total Protein,Serum 6.3 gm/dL (6.4-8.2)
[2018-07-20 06:13] LABS: Vitamin B12 988 pg/mL (232-1245)
== END ==
PROVIDERS: PCP Physician Assistant; Visit Provider Physician Assistant
DX: E87.6 Hypokalemia (principal); E53.8 Deficiency of other specified B group vitamins
CPT/HCPCS: 36415; 80053; 82607; 85025

== ENCOUNTER → 2019-01-25 15:05 | Outpatient (CLI) | payer MEDICARE, OTHER, SELFPAY ==
[2019-01-25 15:35] LABS: Basophils % 0.2 % (0.1-2.0); Eosinophils # 0.1 K/mm3 (0.0-0.4); Eosinophils % 0.7 % (0.1-12.0); Hematocrit 46.8 % (37.0-47.0); Lymphocytes # 2.7 K/mm3 (0.7-4.5); Lymphocytes % 33.7 % (10-50); Mean Corpuscular HGB Conc 32.1 g/dL (31.8-35.4); Mean Corpuscular Hemoglobin 31.2 pg (27.0-31.2); Mean Corpuscular Volume 97.2 fl (81-99); Mean Platelet Volume 7.4 fl (7.4-10.4); Monocytes # 0.4 K/mm3 (0.1-1.0); Monocytes % 4.6 % (1.7-9.3); Neutrophils # 4.9 K/mm3 (1.8-7.8); Neutrophils % 60.8 % (37.0-80.0); Platelet Count 227 K/mm3 (142-424); Red Blood Count 4.82 M/mm3 (4.20-5.40); Red Cell Distribution Width 12.9 % (11.5-17.5); White Blood Count 8.1 K/mm3 (4.8-10.8)
[2019-01-25 18:51] LABS: Anion Gap 14.1 mEq/L (5-15); Blood Urea Nitrogen 8 mg/dL (7-18); Calcium 8.9 mg/dL (8.5-10.1); Carbon Dioxide 28 mmol/L (21.0-32.0); Chloride 102 mmol/L (98-107); Creatinine,Serum 0.53 mg/dL (0.55-1.02); Estimated Glomerular Filt Rate 114 ml/min (>60); GFR (African American) 138 ML/MIN (>60); Glucose 80 mg/dL (74-106); Potassium 4.1 mmoL/L (3.5-5.1); Sodium 140 mmol/L (136-145)
== END ==
PROVIDERS: Visit Provider Internal Medicine Cardiovascular Disease
DX: R06.00 Dyspnea, unspecified; E78.5 Hyperlipidemia, unspecified; I10 Essential (primary) hypertension; I20.9 Angina pectoris, unspecified; Z95.5 Presence of coronary angioplasty implant and graft
CPT/HCPCS: 36415; 80048; 83880; 85025

== ENCOUNTER → 2019-02-01 06:55 | Outpatient (CLI) | payer MEDICARE, OTHER, SELFPAY ==
--- NOTE | 2019-02-01 | CA_ITS ---
APPROVED REPORT Exam: Pharmacologic Technologist: tommy winston, Ht: 5 ft 6 in Wt: 112 lbs BSA: 1.56 m2 HR: 61 bpm BP: 131/78 mmHg Indications: Atypical Angina, CP, Fatigue Medical History Medications: Lisinopril,,,,, Metoprolol,,,,, Atorvastatin,,,,, Vitamin B,,,,, Multivitamin,,,,, OmPERAZOLE,,,,, Combivent inhaler,,,,, Stress Test Details Test: LEXISCAN HR Resting HR: 60 bpm Max Heart Rate (APMHR): 151 bpm Max HR Achieved: 92 bpm Target HR (85% APMHR): 128 bpm % of APMHR: 60 Recovery HR: 83 bpm BP Resting BP: 131.0/78.0 mmHg Max BP: 142.0/74.0 mmHg Recovery BP: 128.0/72.0 mmHg ECG Clinical Exercise duration: 04:18 min Highest Stage Achieved: Stress ECG Conclusion SYMPTOMS: SOA,MILD STOMACH DISCOMFORT,MILD CHEST DISCOMFORT,MALAISE. NO ARRHYTHMIAS/ECTOPY. NO SIGNIFICANT ST-T CHANGES. UNREMARKABLE LEXISCAN STRESS. MYOVIEW IMAGES REPORTED SEPARATELY. Electronically signed by : Walker Knowles, 02/07/2019 11:42:04
--- NOTE | 2019-02-01 06:56 | NM_ITS ---
APPROVED REPORT Exam: Nuclear Stress Test CA EXAM: Myocardial Perfusion REST/STRESS Imaging Protocol: Rest Tc-99m/Stress Tc-99m 1 day Resting Data Rest SPECT myocardial perfusion imaging was performed in supine position 30 minutes following the intravenous injection of 10.47 mCi of tc99 Time of rest injection: 0710 The images were gated to evaluate regional wall motion and calculate left ventricular ejection fraction. Administration Route: IV Administration Site: Left AC Pharmacologic Stress Pharmacologic stress test was performed by injecting Regadenoson 0.4 mg IV push followed by the intravenous injection of 32.2 mCi of Tc-99m Tetrofosmin. Time of stress injection: 0830 Administration Route: IV Administration Site: Left AC Heart Rate at time of stress injection: 86 bpm. Gated Stress SPECT was performed 45 minutes after stress injection. The images were gated to evaluate regional wall motion and calculate left ventricular ejection fraction. Nuclear Conclusion Stress images reveal decreased activity in the anterior wall septum and apex. Rest images reveal slightly improved activity. Gated images calculated ejection fraction of 71% with normal wall motion Anterior defect is not entirely consistent with breast attenuation. This test is abnormal and suggests ischemia. Because of the anterior wall involvement it is a high risk abnormal stress test Electronically signed by : Walker Knowles, 02/02/2019 13:28:30
--- NOTE | 2019-02-01 09:56 | HMH.ITSHM ---
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 [] omrazole metoprolol lisinopril atorvastatin albuteral
== END ==
PROVIDERS: PCP Physician Assistant; Visit Provider Internal Medicine Cardiovascular Disease
DX: I20.9 Angina pectoris, unspecified; R06.00 Dyspnea, unspecified; E78.5 Hyperlipidemia, unspecified; I10 Essential (primary) hypertension; Z95.5 Presence of coronary angioplasty implant and graft
CPT/HCPCS: 78452; 93017; 93306; A9502; J2785

== ENCOUNTER → 2019-12-10 09:40 | Outpatient (CLI) | payer MEDICARE, OTHER, SELFPAY ==
[2019-12-10 11:28] LABS: Bilirubin,Unconjugated 0.5 mg/dL (0.0-1.1)
[2019-12-10 11:29] LABS: Alanine Aminotransferase 19 U/L (12-78); Albumin Level 4.2 g/dl (3.5-5.0); Alkaline Phosphatase 99 U/L (38-126); Aspartate Amino Transferase 31 U/L (14-36); Bilirubin,Direct 0.1 mg/dl (0.0-0.4); Bilirubin,Indirect 0.5 mg/dL (0.0-0.9); Bilirubin,Total 0.6 mg/dl (0.2-1.3); Chol/HDL Ratio 1.9 (1-3.5); Cholesterol 124 mg/dl (140-200); HDL Cholesterol 64 mg/dl (40-60); Total Protein,Serum 6.1 g/dl (6.3-8.2); Triglycerides 90 mg/dl (30-150); VLDL Cholesterol 18 mg/dL (0-40)
[2019-12-10 11:40] LABS: Direct LDL Cholesterol 57.53 mg/dL (100-129)
== END ==
PROVIDERS: Visit Provider Urology
DX: E78.2 Mixed hyperlipidemia (principal); F17.200 Nicotine dependence, unspecified, uncomplicated; I11.9 Hypertensive heart disease without heart failure; I25.10 Atherosclerotic heart disease of native coronary artery without angina pectoris; Z95.5 Presence of coronary angioplasty implant and graft
CPT/HCPCS: 36415; 80061; 80076

== ENCOUNTER → 2020-06-12 06:28 | Outpatient (CLI) | payer MEDICARE, OTHER, SELFPAY ==
--- NOTE | 2020-06-12 06:30 | CA_ITS ---
APPROVED REPORT EXAM: Comprehensive 2D, Doppler, and color-flow Echocardiogram Application Counselor: Adeline Shelton RVT Ht: 5 ft 6 in Wt: 102lbs BSA: 1.50 BP: 116/70 mmHg Indications: CP,CAD,COPD,STENT,HTN,HLD,FATIGUE,GERD 2D Dimensions LVOT 1.61 cm (M/F) 1.5-2.5 M-Mode Dimensions RVDd 1.72 cm (0.9-2.6) LA Diam 3.44 cm (1.9-4.0) LVDd 4.29 cm (3.5-5.7) Ao Diam 2.65 cm (2.0-3.7) LVDs 2.93 cm (3.5-5.7) IVSd 0.36 cm (0.6-1.1) PWd 0.43 cm (0.6-1.1) EF (Teich) 60.00% FS 31.70% EDV (Teich) 82.60 mL ESV (Teich) 33.00 mL LV Diastology E Decel Time 193.00 (160-240 msec) E/A Ratio 1.6 MED E' 8.10 (< 7 cm/sec) E'/MED E' Ratio 8.84 (>14) LAT E' 11.80 (<10 cm/sec) E/LAT E' Ratio 6.07 (>14) Mitral Valve MV E Max Coleman. 72.00 (40-130 cm/s) MV A Velocity 44.00 (40-130 cm/s) E/A Ratio 1.64 MV Decel. Time 193.00 (160-240 ms) MV PHT 57.00 ms Pulmonary Valve PV Peak Velocity 56.00 (50-150 cm/s) Tricuspid Valve TR P. Velocity 251.00 cm/s RAP Estimate 10.00 mmHg RVSP 35.20 mmHg Left Ventricle Left atrium is mildly enlarged, left ventricle is normal size, there is no concentric left ventricular hypertrophy, visually estimated ejection fraction 55% with no regional wall motion abnormality, diastolic parameters are within normal range. Right Ventricle Right atrium and right ventricular qualitatively mildly enlarged with normal contractility. Aortic Valve Aortic valve is minimally thickened and fibrosed, there is no aortic stenosis or aortic insufficiency. Mitral Valve Mitral valve is grossly normal, there is mild mitral regurgitation. Tricuspid Valve Tricuspid valve is grossly normal, there is mild tricuspid regurgitation, tricuspid regurgitation jet velocity is inadequate for calculation of the right ventricular systolic pressure. Pulmonic Valve Pulmonic valve is poorly visualized. Great Vessels Aortic root is normal size. Pericardium No significant pericardial effusion noted. Conclusion 1. Mild biatrial enlargement, normal left ventricular size, visually estimated ejection fraction 55% with no regional wall motion abnormality, diastolic parameters are within normal range. 2. Mildly enlarged right ventricle with normal contractility. 3. Mild mitral and tricuspid regurgitation. 4. No significant pericardial effusion noted. Electronically signed by : Zak Starr, 06/13/2020 12:02:29
--- NOTE | 2020-06-12 06:30 | NM_ITS ---
APPROVED REPORT Exam: Nuclear Stress Test Indication: chest pain..fatigue Patient Location: Outpatient Stress Tech: Sandra Galindo [place] Tech:NICK Lopez RT(R)(N) Ht: 5 ft 6 in Wt: 103 lbs Bra Size: 34 d BSA: 1.51 m2 BMI: 16.6 History: chest pain..fatigue Procedure: Patient received a 0.4 mg of intravenous Lexiscan, resting heart rate 60 bpm, resting blood pressure 126/66 mmHg, with Lexiscan maximum heart rate achived was 86 bpm which is Less than 85 % of the maximum predicted heart rate and blood pressure was 116/66 mmHg. Electrocardiogram Resting electrocardiogram showed sinus rhythm, with Lexiscan there is less than 1.[address] segment depression noted from the baseline EKG. The EKG portion of the Lexiscan is nondiagnostic. Cardiac Stress and Resting SPECT Images: Cardiac Stress and Resting SPECT images were obtained using technetium 99m Myoview 32.4 mCi stress and 9.67 mCi at rest. Gated SPECT for analysis of segmental wall motion and calculation of the ejection fraction also done. Prone images were also obtained. Cardiac stress and resting SPECT images show uniform myocardial activity without segmental perfusion abnormality, computer derived ejection fraction is 61% with no regional wall motion abnormality, right ventricle is normal size and contractility. Conclusion: 1. The EKG portion of the Lexiscan is nondiagnostic. 2. No scintigraphic evidence of reversible ischemia seen, computer derived ejection fraction is 61% with no regional wall motion abnormality, right ventricle is normal size and contractility. 3. Normal Lexiscan Myoview study. Electronically signed by : Zak Starr, 06/13/2020 12:32:02
--- NOTE | 2020-06-12 06:30 | CA_ITS ---
APPROVED REPORT Exam: Pharmacologic Technologist: Mabel Armstrong, Ht: 5 ft 6 in Wt: 102 lbs BSA: 1.50 m2 HR: 60 bpm BP: 126/66 mmHg Medical History Medications: Lisinopril,,,,, Furosemide (LASIX),,,,, Albuterol,,,,, SpirOLACTONE,,,,, AtorvaASTATIN,,,,, Bisprolol Fumarate,,,,, Stress Test Details Test: LEXISCAN HR Resting HR: 63 bpm Max Heart Rate (APMHR): 150 bpm Max HR Achieved: 94 bpm Target HR (85% APMHR): 127 bpm % of APMHR: 62 Recovery HR: 75 bpm BP Resting BP: 126/66 mmHg Max BP: 126/66 mmHg Recovery BP: 116.0/67.0 mmHg ECG Resting ECG: NSR Clinical Exercise duration: 04:00 min Highest Stage Achieved: Exercise capacity: 1.0 METs Stress ECG Conclusion Symptoms: Brief SOA, mild chest and stomach discomfort, mild WANG. Arrhythmias/Ectopy: Occasional PVC. ST-T Changes: No significant changes. Conclussion: Unremarkable Lexiscan stress. Myoview images reported separately. Electronically signed by : Zak Starr, 06/13/2020 12:24:21
--- NOTE | 2020-06-12 09:25 | HMH.ITSHM ---
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 [] lisinopril spironolactone furosemide bisoprolol
[2020-06-12 09:55] LABS: Basophils % 0.2 % (0.1-2.0); Eosinophils # 0.1 K/mm3 (0.0-0.4); Eosinophils % 1.5 % (0.1-12.0); Hematocrit 45.9 % (37.0-47.0); Hemoglobin 15.1 g/dL (12.2-16.2); Lymphocytes # 2.4 K/mm3 (0.7-4.5); Lymphocytes % 36.8 % (10-50); Mean Corpuscular HGB Conc 32.8 g/dL (31.8-35.4); Mean Corpuscular Hemoglobin 33.3 pg (27.0-31.2); Mean Corpuscular Volume 101.5 fl (81-99); Mean Platelet Volume 8.9 fl (7.4-10.4); Monocytes # 0.5 K/mm3 (0.1-1.0); Monocytes % 7.1 % (1.7-9.3); Neutrophils # 3.5 K/mm3 (1.8-7.8); Neutrophils % 54.4 % (37.0-80.0); Platelet Count 211 K/mm3 (142-424); Red Blood Count 4.52 M/mm3 (4.20-5.40); Red Cell Distribution Width 13.5 % (11.5-17.5); White Blood Count 6.4 K/mm3 (4.8-10.8)
[2020-06-12 10:24] LABS: Chloride 98 mmol/L (98-107); Potassium 4.1 mmoL/L (3.5-5.1); Sodium 134 mmol/L (136-145)
[2020-06-12 10:26] LABS: Alanine Aminotransferase 18 U/L (12-78); Aspartate Amino Transferase 36 U/L (14-36); Bilirubin,Unconjugated 0.9 mg/dL (0.0-1.1); Blood Urea Nitrogen 12 mg/dl (7-17); Estimated Glomerular Filt Rate 83 ml/min (>60); GFR (African American) 100 ML/MIN (>60)
[2020-06-12 10:27] LABS: Albumin Level 4.7 g/dl (3.5-5.0); Alkaline Phosphatase 82 U/L (38-126); Anion Gap 11.1 mEq/L (5-15); Bilirubin,Direct 0.1 mg/dl (0.0-0.4); Bilirubin,Indirect 0.9 mg/dL (0.0-0.9); Calcium 9.6 mg/dl (8.4-10.2); Carbon Dioxide 29 mmol/L (22.0-30.0); Chol/HDL Ratio 2.1 (1-3.5); Cholesterol 146 mg/dl (140-200); Glucose 84 mg/dl (74-100); HDL Cholesterol 68 mg/dl (40-60); Triglycerides 73 mg/dl (30-150); VLDL Cholesterol 15 mg/dL (0-40)
[2020-06-12 10:44] LABS: Free T4 (Free Thyroxine) 1.33 ng/dl (0.78-2.19)
[2020-06-12 10:58] LABS: Thyroid Stimulating Hormone 3.11 uIU/mL (0.465-4.68)
== END ==
PROVIDERS: PCP Physician Assistant; Visit Provider Nurse Practitioner Family
DX: R07.89 Other chest pain; I25.118 Atherosclerotic heart disease of native coronary artery with other forms of angina pectoris; I11.9 Hypertensive heart disease without heart failure; E78.2 Mixed hyperlipidemia; R53.83 Other fatigue; F17.200 Nicotine dependence, unspecified, uncomplicated; Z95.5 Presence of coronary angioplasty implant and graft
CPT/HCPCS: 78452; 80048; 80061; 80076; 84439; 84443; 85025; 93017; 93306; A9502; J2785

== ENCOUNTER → 2020-10-09 13:18 | Outpatient (CLI) | payer MEDICARE, OTHER, SELFPAY | PROVIDERS: PCP Family Medicine; Visit Provider Internal Medicine | DX: G47.30 Sleep apnea, unspecified (principal); R40.0 Somnolence; R06.83 Snoring | CPT/HCPCS: G0399 ==

== ENCOUNTER → 2020-10-13 11:28 | Outpatient (CLI) | payer MEDICARE, OTHER, SELFPAY ==
--- NOTE | 2020-10-13 11:45 | XR_ITS ---
PROCEDURE: XR KNEE RT 4V CLINICAL INDICATION: fall; STANDING Pain COMPARISON: No exams were available for comparison FINDINGS: There are mild osteoarthritic changes of all 3 compartments. There is a medium size knee joint effusion. No acute fracture or dislocation. IMPRESSION: Osteoarthritis with medium size knee joint effusion Dictated by: Jamel Rabago MD 10/13/2020 17:47 Jamel Rabago MD in [place] 10/13/2020 17:47
--- NOTE | 2020-10-13 11:45 | XR_ITS ---
PROCEDURE: XR KNEE RT 3V CLINICAL INDICATION: fall Pain COMPARISON: No exams were available for comparison FINDINGS: No fracture or dislocation. No lytic or blastic change. There is normal mineralization. There are mild osteoarthritic changes of the medial compartment. Small area of exostosis is present along the articular surface of the medial femoral condyle. Other findings:There is a moderate-sized knee joint effusion in the suprapatellar region. IMPRESSION: Osteoarthritis with knee joint effusion Dictated by: Jamel Rabago MD 10/13/2020 17:45 Jamel Rabago MD in [place] 10/13/2020 17:45
== END ==
PROVIDERS: PCP Family Medicine; Visit Provider Internal Medicine
DX: R60.0 Localized edema (principal); W19.XXXA Unspecified fall, initial encounter; M25.561 Pain in right knee
CPT/HCPCS: 73562; 73564

== ENCOUNTER → 2022-06-01 14:06 | Outpatient (CLI) | payer MEDICARE, OTHER, SELFPAY ==
[2022-06-01 16:13] LABS: Anion Gap 13.1 mEq/L (5-15); Blood Urea Nitrogen 10 mg/dl (7-17); Calcium 9.3 mg/dl (8.4-10.2); Carbon Dioxide 26 mmol/L (22.0-30.0); Chloride 102 mmol/L (98-107); Estimated Glomerular Filt Rate 98 ml/min (>60); GFR (African American) 119 ML/MIN (>60); Glucose 84 mg/dl (74-100); Potassium 4.1 mmoL/L (3.5-5.1); Sodium 137 mmol/L (136-145)
== END ==
PROVIDERS: PCP Psychiatry & Neurology Sleep Medicine; Visit Provider Nurse Practitioner
DX: E87.5 Hyperkalemia (principal)
CPT/HCPCS: 36415; 80048

== ENCOUNTER → 2022-08-05 09:13 | Outpatient (CLI) | payer MEDICARE, OTHER, SELFPAY ==
--- NOTE | 2022-08-05 09:17 | XR_ITS ---
FINAL REPORT TECHNIQUE: Bone densitometry calculations of the lumbar spine and left hip were obtained. CLINICAL HISTORY: . post menopausal screening FINDINGS: Using L1-4, the bone mineral density of the spine is 0.870 g/cm2, corresponding to T-score of -1.6. Using the left hip, the bone mineral density of the femoral neck is 0.431 g/cm2, corresponding to a T-score of -4.2. Using the 1/3 radius the bone mineral density of the radius is 0.398 g/cm2, corresponding to a T-score of -4.9. NOTE: T-score: Standard deviation compared with peak bone mass of young adult mean. *Following the recommendations of the International Society of Bone Densitometry, classification of hip BMD is based on the lower of two T-scores; total hip or femoral neck. IMPRESSION: Osteoporosis: Lowest T-score is at or below -2.5. This patient's T-score meets the World Health Organization criteria for osteoporosis. FRAX was not reported because some of the T-scores are at or below-2.5. Reviewed, Interpreted and Dictated by Elder Shukla III, MD Transcribed by Kim Hernandez Authenticated and [facility]
== END ==
PROVIDERS: PCP Psychiatry & Neurology Sleep Medicine; Visit Provider Family Medicine
DX: M85.89 Other specified disorders of bone density and structure, multiple sites (principal)
CPT/HCPCS: 77080

== ENCOUNTER → 2022-10-04 13:11 | Outpatient (CLI) | payer MEDICARE, OTHER, SELFPAY ==
--- NOTE | 2022-10-04 13:12 | US_ITS ---
FINAL REPORT CLINICAL HISTORY: right leg pain, HLD, CAD, current, HTN FINDINGS: ANKLE/BRACHIAL INDICES FINDINGS: Pressure indices are as follows: RIGHT LOWER EXTREMITY: Ankle brachial pressure index: 1.3 Comments: Normal LEFT LOWER EXTREMITY: Ankle brachial pressure index: 1.2 Comments: Normal IMPRESSION: No evidence of significant obstructive peripheral vascular disease of the lower extremities. Reviewed, Interpreted and Dictated by Elder Shukla III, MD Transcribed by Ronald Wang Authenticated and [facility]
== END ==
PROVIDERS: PCP Family Medicine; Visit Provider Nurse Practitioner
DX: M79.604 Pain in right leg (principal); R06.00 Dyspnea, unspecified; R22.41 Localized swelling, mass and lump, right lower limb; R09.89 Other specified symptoms and signs involving the circulatory and respiratory systems
CPT/HCPCS: 93923

== ENCOUNTER → 2022-10-12 15:13 | Outpatient (CLI) | payer MEDICARE, OTHER, SELFPAY ==
--- NOTE | 2022-10-12 15:46 | CT_ITS ---
FINAL REPORT CLINICAL HISTORY: Patient has smoked on average 10 cigarettes per day for 51 years. She is also exposed to second hand smoker. She states she has never had cancer except for skin cancer on her hand. COMPARISON: CT chest dated 08/31/2018 FINDINGS: Axial images were obtained from the lung apex to the mid abdomen by computed tomography. Low-dose protocol was utilized. CTDl vol(mGy): 2.90 DLP (mGy-cm): 113.59 FINDINGS: There is no axillary adenopathy. There is no hilar or mediastinal adenopathy. The ascending aorta measures 3.4 cm in diameter. The heart size is normal. There is no pericardial or pleural effusion. There is scarring in the lung bases. Lung window images demonstrate no suspicious infiltrate or nodule. Calcified granulomas are seen bilaterally. Limited images of the upper abdomen are unremarkable. IMPRESSION: Lung RADS category 1. Recommend 12 month follow-up low-dose chest CT. Reviewed, Interpreted and Dictated by Dash Hernandez MD Transcribed by Julienne Floyd Authenticated and [facility]
--- NOTE | 2022-10-12 15:48 | MM_ITS ---
PROCEDURE INFORMATION: Exam: MG Bilateral Screening 3D Mammography Exam date and time: 10/12/2022 3:49 PM Age: 71 years old Clinical indication: Screening examination TECHNIQUE: Imaging protocol: Bilateral Screening tomosynthesis and 2D mammography including computer-aided detection (CAD) when performed. COMPARISON: 1. MG DMSB DIG MAMM-SCREEN DANIEL 10/28/2014 9:37 AM 2. MG DMSB DIG MAMM-SCREEN DANIEL 09/24/2013 1:34 PM FINDINGS: MAMMOGRAPHY: Breast composition: There are scattered areas of fibroglandular density. Mass: None. Architectural distortion: None. Calcifications: No suspicious calcifications. Asymmetric density: None. Skin thickening: None. Axillary adenopathy: None. IMPRESSION: No mammographic evidence of malignancy. Annual screening is recommended unless otherwise clinically indicated. ASSESSMENT: BI-RADS Category 1: Negative
== END ==
PROVIDERS: PCP Family Medicine; Visit Provider Family Medicine
DX: Z87.891 Personal history of nicotine dependence (principal); Z12.2 Encounter for screening for malignant neoplasm of respiratory organs; Z12.31 Encounter for screening mammogram for malignant neoplasm of breast
CPT/HCPCS: 71271; 77063; 77067

== ENCOUNTER → 2023-01-20 14:12 | Outpatient (CLI) | payer MEDICARE, OTHER, SELFPAY ==
--- NOTE | 2023-01-20 14:13 | CT_ITS ---
FINAL REPORT CLINICAL HISTORY: rule out right mastoiditis COMPARISON: 07/08/2018 FINDINGS: Axial images of the head were obtained without contrast. Coronal and sagittal reformatted images were also obtained.This study was performed with techniques to keep radiation doses as low as reasonably achievable (ALARA). Individualized dose reduction techniques using automated exposure control or adjustment of mA and/or kV according to the patient's size were employed. There is no evidence of intracranial hemorrhage or mass. The ventricular size is within normal limits. There is no evidence of shift of the midline structures. No abnormal extra axial fluid collection is identified. There are postoperative changes noted from a prior left mastoidectomy. No significant fluid is seen in the right mastoid air cells. IMPRESSION: No acute intracranial abnormality. Reviewed, Interpreted and Dictated by Elder Shukla III, MD Transcribed by Rachael Weiner Authenticated and [facility]
== END ==
PROVIDERS: PCP Family Medicine; Visit Provider Nurse Practitioner
DX: H66.91 Otitis media, unspecified, right ear (principal)
CPT/HCPCS: 70450

== ENCOUNTER → 2023-02-24 09:39 | Outpatient (POV) | payer MEDICARE, OTHER, SELFPAY | PROVIDERS: Visit Provider Specialist/Technologist | DX: Z00.00 Encounter for general adult medical examination without abnormal findings (principal) ==

== ENCOUNTER 2023-05-17 11:10 | Observation (INO) | payer MEDICARE, OTHER, SELFPAY ==
[2023-05-17] VITALS (14 sets, daily range): BP systolic 101–137; BP diastolic 52–76; PULSE 75–105; RESP 16–21; TEMP 36.7–37.1; O2SAT 84–98; BMI 16.9; BMI 15.7
--- NOTE | 2023-05-17 11:25 | ECG_ITS ---
APPROVED REPORT Exam: Resting ECG HR:80 bpm ECG Measurements Heart Rate 80 AXES ID 140 P 49 QRSd 74 QRS 86 QT 358 T 81 QTc 394 Conclusion SINUS RHYTHM NORMAL ECG UNCONFIRMED REPORT Electronically signed by : Landen Copeland MD 05/18/2023 13:23:55
--- NOTE | 2023-05-17 11:40 | XR_ITS ---
FINAL REPORT CLINICAL HISTORY: cough, SOA smoker copd COMPARISON: 08/31/2018 FINDINGS: TWO-VIEW CHEST The heart size is normal. The mediastinum is normal. The lungs are hyperinflated consistent with COPD. There is no pneumothorax. IMPRESSION: COPD. Reviewed, Interpreted and Dictated by Elder Shukla III, MD Transcribed by Kim Hernandez Authenticated and [facility]
[2023-05-17 11:46] LABS: Coronavirus 19, PCR Not Detected (NotDetected); Influenza A, PCR Not Detected (NotDetected); Influenza B, PCR Not Detected (NotDetected)
[2023-05-17 11:49] LABS: VBG Base Excess 4.1 mmol/L (-2.4-2.3); VBG HCO3 29.5 mmol/L (23-30); VBG Oxygen Saturation 49.5 % (50-70); VBG PH 7.36 mmol/L (7.31-7.41); VBG PO2 26.9 mmol/L (28-40); VBG Total CO2 31.2 mmol/L (23-27)
[2023-05-17 11:53] LABS: VBG PCO2 53.5 mmol/L (35-51)
[2023-05-17 11:54] LABS: Alanine Aminotransferase 26 U/L (12-78); Albumin Level 4.2 g/dl (3.5-5.0); Albumin/Globulin Ratio 1.9 (1.1-1.8); Alkaline Phosphatase 71 U/L (38-126); Anion Gap 8.7 mEq/L (5-15); Aspartate Amino Transferase 47 U/L (14-36); Basophils % 0.3 % (0.1-2.0); Bilirubin,Total 0.6 mg/dl (0.2-1.3); Blood Urea Nitrogen 5 mg/dl (7-17); Calcium 8.7 mg/dl (8.4-10.2); Carbon Dioxide 31 mmol/L (22.0-30.0); Chloride 97 mmol/L (98-107); Creatinine Clearance Estimated 38 mL/min (50-200); Eosinophils % 0.1 % (0.1-12.0); Estimated Glomerular Filt Rate 121 ml/min (>60); GFR (African American) 146 ML/MIN (>60); Globulin 2.2 g/dL (1.3-3.2); Glucose 95 mg/dl (74-100); Hematocrit 41.7 % (37.0-47.0); Hemoglobin 14.6 g/dL (12.2-16.2); Lymphocytes # 1.2 K/mm3 (0.7-4.5); Lymphocytes % 29.2 % (10-50); Mean Corpuscular Hemoglobin 33.5 pg (27.0-31.2); Mean Corpuscular Volume 95.9 fl (81-99); Mean Platelet Volume 7.8 fl (7.4-10.4); Monocytes # 0.3 K/mm3 (0.1-1.0); Monocytes % 8.6 % (1.7-9.3); Neutrophils # 2.5 K/mm3 (1.8-7.8); Neutrophils % 61.8 % (37.0-80.0); Platelet Count 131 K/mm3 (142-424); Potassium 3.7 mmoL/L (3.5-5.1); Red Blood Count 4.35 M/mm3 (4.20-5.40); Red Cell Distribution Width 13.1 % (11.5-17.5); Sodium 133 mmol/L (136-145); Total Protein,Serum 6.4 g/dl (6.3-8.2)
[2023-05-17 11:57] LABS: Lactic Acid 1.2 mmol/L (0.7-2.1)
[2023-05-17 12:12] LABS: Troponin I < 0.01 ng/ml (0.00-0.034)
--- NOTE | 2023-05-17 13:20 | HMH.EDGENADL ---
Discharge Plan Disposition Patient Disposition: Admitted Condition: Good Clinical Impressions Clinical Impression: Viral URI with cough, Acute hypoxemic respiratory failure, Acute exacerbation of chronic obstructive pulmonary disease, Acute right otitis media Discharge ED Provider: Elisha Tariq General Adult HPI General Chief complaint: Shortness of Breath/Dyspnea Stated complaint: cant keep anything down and cough Time Seen by Provider: 05/17/23 11:27 Mode of Arrival: Ambulatory Source of Information: Patient Limitations: No Limitations Description of Symptoms (Recalled from ER Triage Doc. by RN): pt to ed c/o body aches, chest congestion and vomiting. pt states she has been doing breathing treatments at home for the chest congestion with no relief. pt reports a hx of cardic stents. History of Present Illness HPI narrative: This patient is a 72-year-old female with a history of COPD, hypertension, and hyperlipidemia presented to the emergency department for evaluation with concern for body aches, cough, congestion, nausea, and vomiting that started yesterday. She states she is been doing breathing treatments at home with minimal improvement. She denies any associated chest pain, but she does complain of history of cardiac stents. She denies any abdominal pain, changes bowel movements, or other concerns. She is otherwise been well. Related Data Home Medications Medication Instructions Recorded Confirmed multivitamin 1 tab PO QAM Supplement 08/02/17 05/17/23 vitamin B complex (B 1 tab PO DAILY 07/19/18 05/17/23 Complex-Vitamin B12 tablet) potassium chloride 20 mEq 20 meq PO DAILY PRN electrolytes 01/05/23 05/17/23 tablet,extended release(part/cryst) alendronate 70 mg tablet 70 mg PO WEEKLY 01/25/23 05/17/23 lisinopril 5 mg tablet 5 mg PO DAILY 01/25/23 05/17/23 Previous Rx's Medication Instructions Recorded bisoprolol fumarate 5 mg tablet See Rx Instructions .Route 09/07/21 .COMPLEX #45 tabs atorvastatin 40 mg tablet See Rx Instructions .Route 09/21/22 .COMPLEX #90 tabs ciprofloxacin 0.3 %-dexamethasone 4 drp otic (ear) BID PRN 03/02/23 0.1 % ear drops,suspension perforated TM 7 days #7.5 mL (Ciprodex) furosemide 20 mg tablet 20 mg PO DAILY PRN edema #90 tabs 03/28/23 Allergies Allergy/AdvReac Type Severity Reaction Status Date / Time amoxicillin [AMOXICILLIN] Allergy Intermediate I-HIVES Verified 03/02/23 13:16 Sulfa (Sulfonamide Allergy Unknown I-HIVES Verified 03/02/23 13:16 Antibiotics) [SULFA (SULFONAMIDE ANTIBIOTICS)] [facility] Disclaimer: The information contained in this section may have been updated after the patient was seen, as this information can be updated by other users. Medical History CAD (coronary artery disease) Coronary arteriosclerosis Dyspnea Encounter for pre-operative cardiovascular clearance Fall HHD (hypertensive heart disease) Hyperlipidemia Hypertensive disorder Perforated left tympanic membrane on examination Recurrent otitis media of right ear Right leg pain Smoker Swelling of right lower extremity Typical angina Surgical History History of left mastoidectomy History of tympanoplasty of left ear Hx of myringotomy Hx of tonsillectomy Stented coronary artery Social History Smoking Status: Current every day smoker tobacco type: cigarettes packs per day: 1 alcohol intake: never substance use type: denies use current occupational status: retired Travel in the last 8 weeks: Inside the [place] household members: spouse housing: house current occupational exposures/hazards: No caffeine: Yes ROS Obtained: Yes All systems reviewed & no additional complaints except as documented Physical Exam General General appearance: alert and in no apparent distress
--- NOTE | 2023-05-17 13:45 | PC.NURSE ---
pt resting in bed no needs call light at bs
--- NOTE | 2023-05-17 15:15 | PC.NURSE ---
report given to Dorie ROSALES
[2023-05-17 15:34] LABS: Troponin I < 0.01 ng/ml (0.00-0.034)
[2023-05-18] VITALS (7 sets, daily range): BP systolic 109–117; BP diastolic 52–60; PULSE 66–98; RESP 16–20; TEMP 36.6–37; O2SAT 91–94; BMI 15.8
[2023-05-18 06:23] LABS: Basophils % 0.2 % (0.1-2.0); Hematocrit 39.4 % (37.0-47.0); Hemoglobin 13.3 g/dL (12.2-16.2); Lymphocytes # 0.7 K/mm3 (0.7-4.5); Lymphocytes % 28.4 % (10-50); Mean Corpuscular HGB Conc 33.9 g/dL (31.8-35.4); Mean Corpuscular Hemoglobin 32.1 pg (27.0-31.2); Mean Corpuscular Volume 94.8 fl (81-99); Mean Platelet Volume 9.1 fl (7.4-10.4); Monocytes # 0.1 K/mm3 (0.1-1.0); Monocytes % 4.7 % (1.7-9.3); Neutrophils # 1.6 K/mm3 (1.8-7.8); Neutrophils % 66.7 % (37.0-80.0); Platelet Count 122 K/mm3 (142-424); Red Blood Count 4.15 M/mm3 (4.20-5.40); Red Cell Distribution Width 13.2 % (11.5-17.5); White Blood Count 2.4 K/mm3 (4.8-10.8)
[2023-05-18 06:40] LABS: Chloride 105 mmol/L (98-107); Sodium 137 mmol/L (136-145)
[2023-05-18 06:43] LABS: Blood Urea Nitrogen 7 mg/dl (7-17); Carbon Dioxide 27 mmol/L (22.0-30.0); Creatinine Clearance Estimated 35 mL/min (50-200); Estimated Glomerular Filt Rate 156 ml/min (>60); GFR (African American) 189 ML/MIN (>60)
[2023-05-18 06:44] LABS: Calcium 7.6 mg/dl (8.4-10.2); Glucose 121 mg/dl (74-100)
--- NOTE | 2023-05-18 07:20 | HMH.PHAINT1 ---
Pharmacy Intervention Comments: Med reconciliation completed using external fill history
--- NOTE | 2023-05-18 08:54 | EXP.HP ---
History of Present Illness *Admission Date: 05/18/23 *Reason for visit:: Weakness, SOA, Vomiting/Diarrhea *History of present illness: This patient is a 72-year-old female with a history of COPD, hypertension, and hyperlipidemia presented to the emergency department for evaluation with concern for body aches, cough, congestion, nausea, and vomiting that started yesterday. She states she is been doing breathing treatments at home with minimal improvement. She denies any associated chest pain, but she does complain of history of cardiac stents. She denies any abdominal pain, changes bowel movements, or other concerns. She is otherwise been well. In summary, this patient is a 72-year-old female presenting to the Emergency Department for evaluation of bodyaches, cough, shortness of breath, nausea, and vomiting. Differential diagnoses considered include but are not limited to viral syndrome, pneumonia, COPD exacerbation, respiratory failure. Ruling out the most morbid conditions drove assessment. It should be noted patient's history includes COPD which is not at goal therapy. This complicates all aspects of care by increasing patient's risk for morbidity. I reviewed patient's past medical records and noted history of recurrent otitis media. On exam, the patient has prolonged expiratory phase with hypoxia on room air. She has diffusely diminished breath sounds bilaterally and sounds very tight. She also complains of right ear pain, which is concerning for right otitis media. Workup included CBC, CMP, VBG, troponin, chest x-ray, and EKG as well as viral swab. She was given 3 DuoNebs as well as IV methylprednisolone and doxycycline for symptomatic improvement. She has multiple antibiotic allergies, so given otitis media as well as her COPD exacerbation, she was given doxycycline.. I independently interpreted x-ray prior to the radiologist read and noted hyperinflation consistent with COPD but no other acute concerns. Please see their read for final interpretation. Labs were obtained that demonstrated mild leukopenia, mild hyponatremia, mildly elevated CO2, and mildly elevated AST but no other acute concerns. On reassessment, patient had good improvement after administration of medications as above, but she continues to have slight wheezing and also was not able to be weaned from oxygen. Oxygen saturation again dropped to 86% on room air. Given this, I had an interactive discussion with Dr. Copeland cable installation manager for [facility] who excepted the patient for admission on behalf of [facility] for COPD exacerbation and acute respiratory failure with hypoxia. The patient was admitted in stable condition for further evaluation and management. (above as per ER physician) [facility] Disclaimer: The information contained in this section may have been updated after the patient was seen, as this information can be updated by other users. Medical History CAD (coronary artery disease) Coronary arteriosclerosis Dyspnea Encounter for pre-operative cardiovascular clearance Fall HHD (hypertensive heart disease) Hyperlipidemia Hypertensive disorder Perforated left tympanic membrane on examination Recurrent otitis media of right ear Right leg pain Smoker Swelling of right lower extremity Typical angina Surgical History (Updated 05/18/23 @ 09:05 by ANDREW Alvarez) History of hysterectomy History of left mastoidectomy History of tympanoplasty of left ear Hx of myringotomy Hx of tonsillectomy Stented coronary artery Family History (Updated 05/18/23 @ 09:05 by ANDREW Alvarez) Family history non-contributory Social History Smoking Status: Current every day smoker tobacco type: cigarettes packs per day: 1 alcohol intake: never substance use type: denies use current occupational status: retired Travel in the last 8 weeks: Inside the [place] household m
--- NOTE | 2023-05-18 15:49 | PC.NURSE ---
Patient continuing to receive and tolerate antibiotics and IV steroids. Patient A&Ox4 and VSS. Sputum sample collected and sent to lab
[2023-05-19] VITALS (10 sets, daily range): BP systolic 112–131; BP diastolic 64–68; PULSE 73–91; RESP 18–22; TEMP 36.4–37.1; O2SAT 90–94; BMI 16.7; BMI 16.6
--- NOTE | 2023-05-19 04:16 | PC.NURSE ---
Pt is alert and oriented x4, currently on 2L of O2 sating at 93%. Pt IV became occluded and new IV place in the Right forearm, Pt fluids infusing well and pt has tolerated antibiotic therapy well this shift. Pt denies pain and other needs at this time.
--- NOTE | 2023-05-19 08:11 | EXP.ACUTE.PN ---
Subjective *Date: 05/19/23 *Time: 08:11 Interval history: Patient states she feels worse today. She is more SOA and has more wheezing. She did not sleep well. She continues with pain in her abdomen. She tried to eat but just does not have an appetite. Medical Exam Vital signs and Labs for Last 24 Hours: Vital Signs Temp Pulse Pulse Resp BP Pulse Ox O2 Del Method 05/19/23 07:37 98.5 F 81 18 114/64 91 L Nasal Cannula 05/19/23 06:45 Nasal Cannula 05/19/23 04:00 98.5 F 73 20 114/64 94 L 05/19/23 04:40 Nasal Cannula 05/19/23 02:38 Nasal Cannula 05/19/23 01:00 Nasal Cannula 05/19/23 00:00 93 L Nasal Cannula 05/18/23 23:00 Room Air 05/18/23 20:48 Room Air 05/18/23 20:00 98.4 F 84 20 117/59 L 93 L Room Air 05/18/23 19:49 91 L Nasal Cannula 05/18/23 18:10 75 05/18/23 18:10 98 H 05/18/23 18:10 91 L Nasal Cannula 05/18/23 15:20 98.3 F 80 18 113/60 94 L Nasal Cannula 05/18/23 14:25 78 18 05/18/23 14:25 78 05/18/23 14:25 77 O2 Flow Rate 05/19/23 07:37 2 05/19/23 06:45 2 05/19/23 04:00 05/19/23 04:40 2 05/19/23 02:38 2 05/19/23 01:00 2 05/19/23 00:00 2 05/18/23 23:00 05/18/23 20:48 05/18/23 20:00 05/18/23 19:49 2 05/18/23 18:10 05/18/23 18:10 05/18/23 18:10 2 05/18/23 15:20 2 05/18/23 14:25 05/18/23 14:25 05/18/23 14:25 Intake and Output 05/18/23 05/19/23 05/19/23 19:59 03:59 11:59 Intake Total 630 / 750 120 / 750 Output Total 0 / 500 500 / 500 Balance 630 / 250 120 / 250 -500 / 250 Intake: Intake, Oral Amount 630 / 750 120 / 750 Output: Output, Urine Amount 0 / 500 500 / 500 Other: Number of Unmeasured Voids 1 0 Weight 104 lb 1 oz Patient Weight 05/19/23 11:59 Weight 104 lb 1 oz I & O for Labs for Last 24 Hours: Intake & Output 05/16/23 05/17/23 05/18/23 05/19/23 11:59 11:59 11:59 11:59 Intake Total 615 / 615 750 / 750 Output Total 0 / 0 500 / 500 Balance 615 / 615 250 / 250 Weight 105 lb 98 lb 12.8 oz 104 lb 1 oz Constitutional: Present no acute distress Respiratory: Present decreased breath sounds and wheezes Cardiac: Present Reg Rate and Rhythm GI: Present soft, tenderness (mid abdomen) and normal bowel sounds; Absent distention Extremities: Absent edema, clubbing or cyanosis Skin: Present intact Neuro: Present alert and awake Assessment and Plan *Assessment and plan (1) Viral URI with cough: Status: Acute Category: Medical Code(s): J06.9 - Acute upper respiratory infection, unspecified (2) Acute hypoxemic respiratory failure: Status: Acute Category: Medical Code(s): J96.01 - Acute respiratory failure with hypoxia (3) Acute exacerbation of chronic obstructive pulmonary disease: Status: Acute Category: Medical Code(s): J44.1 - Chronic obstructive pulmonary disease with (acute) exacerbation (4) Acute right otitis media: Status: Acute Category: Medical Code(s): H66.91 - Otitis media, unspecified, right ear (5) HHD (hypertensive heart disease): Status: Chronic Qualifiers: Heart failure presence: without heart failure Qualified Code(s): I11.9 - Hypertensive heart disease without heart failure Category: Medical Code(s): I11.9 - Hypertensive heart disease without heart failure (6) CAD (coronary artery disease): Status: Chronic Qualifiers: Coronary Disease-Associated Artery/Lesion type: [place] artery [place] vs. transplanted heart: [place] heart Associated angina: with other forms of angina Qualified Code(s): I25.118 - Atherosclerotic heart disease of [place] coronary artery with other forms of angina pectoris Category: Medical Code(s): I25.10 - Atherosclerotic heart disease of [place] coronary artery without angina pectoris (7) Smoker: Status:
--- NOTE | 2023-05-19 09:17 | XR_ITS ---
FINAL REPORT CLINICAL HISTORY: COPD exacerbation. COMPARISON: 05/17/2023 FINDINGS: SINGLE-VIEW CHEST The heart size is normal. The mediastinum is normal. The lungs are hyperinflated consistent with COPD. There is a chronic distal right clavicle fracture. There is no pneumothorax. IMPRESSION: COPD. Reviewed, Interpreted and Dictated by Elder Shukla III, MD Transcribed by Kim Hernandez Authenticated and [facility]
[2023-05-19 10:06] LABS: D-Dimer 0.75 ug/mL (0.0-0.5)
[2023-05-20] VITALS (12 sets, daily range): BP systolic 111–136; BP diastolic 60–82; PULSE 76–94; RESP 16–20; TEMP 36.7–36.8; O2SAT 88–96; BMI 17.3
--- NOTE | 2023-05-20 08:35 | EXP.PHA.PN ---
Subjective *Date: 05/20/23 *Time: 08:35 Medical Exam Vital signs and Labs for Last 24 Hours: Vital Signs Temp Pulse Pulse Resp BP Pulse Ox O2 Del Method 05/20/23 08:00 98.1 F 90 20 121/63 93 L Nasal Cannula 05/20/23 06:26 84 05/20/23 06:26 85 05/20/23 06:26 90 L Nasal Cannula 05/20/23 04:00 98.2 F 88 16 126/72 92 L Nasal Cannula 05/20/23 04:20 76 05/20/23 04:20 81 05/20/23 06:50 Nasal Cannula 05/20/23 05:00 Nasal Cannula 05/20/23 03:00 Nasal Cannula 05/20/23 01:00 Nasal Cannula 05/20/23 00:00 98.0 F 81 18 111/60 92 L Nasal Cannula 05/19/23 23:00 Nasal Cannula 05/19/23 23:43 91 L Nasal Cannula 05/19/23 21:00 Nasal Cannula 05/19/23 20:00 97.5 F L 91 H 22 131/68 91 L Nasal Cannula 05/19/23 20:17 80 05/19/23 20:17 83 05/19/23 20:17 92 L Nasal Cannula 05/19/23 19:40 Nasal Cannula 05/19/23 18:25 Nasal Cannula 05/19/23 16:29 Nasal Cannula 05/19/23 15:00 Nasal Cannula 05/19/23 15:41 98.7 F 85 18 112/64 92 L Nasal Cannula 05/19/23 14:10 83 05/19/23 14:10 85 05/19/23 14:10 90 L Nasal Cannula 05/19/23 12:46 Nasal Cannula 05/19/23 11:00 Nasal Cannula 05/19/23 10:03 85 05/19/23 10:03 87 05/19/23 10:03 91 L Nasal Cannula 05/19/23 09:00 Nasal Cannula O2 Flow Rate 05/20/23 08:00 2 05/20/23 06:26 05/20/23 06:26 05/20/23 06:26 2 05/20/23 04:00 2 05/20/23 04:20 05/20/23 04:20 05/20/23 06:50 2 05/20/23 05:00 2 05/20/23 03:00 2 05/20/23 01:00 2 05/20/23 00:00 2 05/19/23 23:00 2 05/19/23 23:43 2 05/19/23 21:00 2 05/19/23 20:00 2 05/19/23 20:17 05/19/23 20:17 05/19/23 20:17 2 05/19/23 19:40 2 05/19/23 18:25 2 05/19/23 16:29 2 05/19/23 15:00 2 05/19/23 15:41 2 05/19/23 14:10 05/19/23 14:10 05/19/23 14:10 2 05/19/23 12:46 2 05/19/23 11:00 2 05/19/23 10:03 05/19/23 10:03 05/19/23 10:03 2 05/19/23 09:00 2 Intake and Output 05/19/23 05/20/23 05/20/23 23:59 07:59 15:59 Intake Total 720 / 1490 Output Total 0 / 500 0 / 0 Balance 720 / 990 0 / 0 Intake: Intake, Oral Amount 720 / 1490 Output: Output, Urine Amount 0 / 500 0 / 0 Other: Number of Unmeasured Voids 1 2 Weight 48.988 kg Patient Weight 05/20/23 23:59 Weight 48.988 kg Laboratory Results - last 24 hr 05/19/23 09:36: D-Dimer 0.75 H I & O for Labs for Last 24 Hours: Intake & Output 05/17/23 05/18/23 05/19/23 05/20/23 23:59 23:59 23:59 23:59 Intake Total 1245 / 1365 1490 / 1490 Output Total 0 / 0 0 / 0 500 / 500 0 / 0 Balance 0 / 375 1245 / 1365 990 / 990 0 / 0 Weight 44.452 kg 44.815 kg 47 kg 48.988 kg The patient's infection will respond to the chosen ABx?: Yes (SPUTUM CULTURE PENDING, AFEBRILE OVER 24 HOURS.) Is the patient receiving the right drug, dose, and route?: Yes Could a more targeted ABx be ordered?: No
--- NOTE | 2023-05-20 08:39 | EXP.ACUTE.PN ---
Subjective *Date: 05/20/23 *Time: 09:14 Interval history: Patient is feeling much better today. She thinks the scheduled nebs have helped quite a bit. Her wheezing and shortness of breath have improved but she is still requiring oxygen. She denies any pain and was able to eat for the first time in a few days. Medical Exam Vital signs and Labs for Last 24 Hours: Vital Signs Temp Pulse Pulse Resp BP Pulse Ox O2 Del Method 05/20/23 08:00 98.1 F 90 20 121/63 93 L Nasal Cannula 05/20/23 06:26 84 05/20/23 06:26 85 05/20/23 06:26 90 L Nasal Cannula 05/20/23 04:00 98.2 F 88 16 126/72 92 L Nasal Cannula 05/20/23 04:20 76 05/20/23 04:20 81 05/20/23 06:50 Nasal Cannula 05/20/23 05:00 Nasal Cannula 05/20/23 03:00 Nasal Cannula 05/20/23 01:00 Nasal Cannula 05/20/23 00:00 98.0 F 81 18 111/60 92 L Nasal Cannula 05/19/23 23:00 Nasal Cannula 05/19/23 23:43 91 L Nasal Cannula 05/19/23 21:00 Nasal Cannula 05/19/23 20:00 97.5 F L 91 H 22 131/68 91 L Nasal Cannula 05/19/23 20:17 80 05/19/23 20:17 83 05/19/23 20:17 92 L Nasal Cannula 05/19/23 19:40 Nasal Cannula 05/19/23 18:25 Nasal Cannula 05/19/23 16:29 Nasal Cannula 05/19/23 15:00 Nasal Cannula 05/19/23 15:41 98.7 F 85 18 112/64 92 L Nasal Cannula 05/19/23 14:10 83 05/19/23 14:10 85 05/19/23 14:10 90 L Nasal Cannula 05/19/23 12:46 Nasal Cannula 05/19/23 11:00 Nasal Cannula 05/19/23 10:03 85 05/19/23 10:03 87 05/19/23 10:03 91 L Nasal Cannula 05/19/23 09:00 Nasal Cannula O2 Flow Rate 05/20/23 08:00 2 05/20/23 06:26 05/20/23 06:26 05/20/23 06:26 2 05/20/23 04:00 2 05/20/23 04:20 05/20/23 04:20 05/20/23 06:50 2 05/20/23 05:00 2 05/20/23 03:00 2 05/20/23 01:00 2 05/20/23 00:00 2 05/19/23 23:00 2 05/19/23 23:43 2 05/19/23 21:00 2 05/19/23 20:00 2 05/19/23 20:17 05/19/23 20:17 05/19/23 20:17 2 05/19/23 19:40 2 05/19/23 18:25 2 05/19/23 16:29 2 05/19/23 15:00 2 05/19/23 15:41 2 05/19/23 14:10 05/19/23 14:10 05/19/23 14:10 2 05/19/23 12:46 2 05/19/23 11:00 2 05/19/23 10:03 05/19/23 10:03 05/19/23 10:03 2 05/19/23 09:00 2 Intake and Output 05/19/23 05/20/23 05/20/23 19:59 03:59 11:59 Intake Total 860 / 1100 240 / 1100 Output Total 0 / 0 0 / 0 0 / 0 Balance 860 / 1100 240 / 1100 0 / 1100 Intake: Intake, Oral Amount 860 / 1100 240 / 1100 Output: Output, Urine Amount 0 / 0 0 / 0 0 / 0 Other: Number of Unmeasured Voids 1 1 2 Weight 103 lb 9.876 oz 108 lb Patient Weight 05/20/23 11:59 Weight 108 lb Laboratory Results - last 24 hr 05/19/23 09:36: D-Dimer 0.75 H I & O for Labs for Last 24 Hours: Intake & Output 05/17/23 05/18/23 05/19/23 05/20/23 11:59 11:59 11:59 11:59 Intake Total 615 / 615 1020 / 1020 1100 / 1100 Output Total 0 / 0 500 / 500 0 / 0 Balance 615 / 615 520 / 520 1100 / 1100 Weight 105 lb 98 lb 12.8 oz 104 lb 1 oz 108 lb Constitutional: Present no acute distress Respiratory: Present decreased breath sounds and wheezes (less wheezing) Cardiac: Present Reg Rate and Rhythm GI: Present soft and normal bowel sounds; Absent distention or tenderness Extremities: Absent edema, clubbing or cyanosis Skin: Present intact Neuro: Present alert and awake Assessment and Plan *Assessment and plan (1) Viral URI with cough: Status: Acute Category: Medical Code(s): J06.9 - Acute upper respiratory infection, unspecified (2) Acute hypoxemic respiratory failure: Status: Acute Category: Medical Code(s): J96.01 - Acute respiratory failure with hypoxia (3) Acute exacerbation of chronic obstructive pulmonary disease: Status: Acute Category: Medical Code(s): J44.1 - Chron
--- NOTE | 2023-05-20 09:46 | EXP.PULM.CON ---
History of Present Illness History of present illness: Ms. Trujillo is a 72-year-old female current smoker greater than 30 PPD history of COPD hypertension dyslipidemia presented to the ER with worsening bodyaches cough congestion along with nausea. Patient does not use any oxygen/inhalers at baseline. She last use inhaler around 8 years ago. Patient admits worsening respiratory's along with cough and productive phlegm for the last 3 to 4 days with no improvement. [facility] Disclaimer: The information contained in this section may have been updated after the patient was seen, as this information can be updated by other users. Medical History (Updated 05/20/23 @ 12:52 by Micha Jose MD) Acute respiratory failure with hypoxia CAD (coronary artery disease) Coronary arteriosclerosis Dyspnea Encounter for pre-operative cardiovascular clearance Fall HHD (hypertensive heart disease) Hyperlipidemia Hypertensive disorder Perforated left tympanic membrane on examination Recurrent otitis media of right ear Right leg pain Smoker Swelling of right lower extremity Typical angina Surgical History (Updated 05/18/23 @ 09:05 by ANDREW Alvarez) History of hysterectomy History of left mastoidectomy History of tympanoplasty of left ear Hx of myringotomy Hx of tonsillectomy Stented coronary artery Family History (Updated 05/18/23 @ 09:05 by ANDREW Alvarez) Other Family history non-contributory Social History Smoking Status: Current every day smoker tobacco type: cigarettes packs per day: 1 alcohol intake: never substance use type: denies use current occupational status: retired Travel in the last 8 weeks: Inside the [place] household members: spouse housing: house current occupational exposures/hazards: No caffeine: Yes Review of Systems Constitutional Constitutional: Reports fatigue, Reports headache(s) and Reports weakness Eyes Eyes: Denies eye discharge, Denies dry eyes, Denies irritation and Denies itchy eyes ENT Ears, Nose, Mouth, and Throat: Reports headache(s), Denies lip swelling and Denies throat swelling *Cardiovascular Cardiovascular: Reports dyspnea, Reports dyspnea on exertion and Reports orthopnea *Respiratory Respiratory: Reports chest congestion, Reports cough, Reports dyspnea, Reports dyspnea on exertion, Reports excessive phlegm production and Reports wheezing *Gastrointestinal Gastrointestinal: Denies abdominal pain, Denies belching and Denies cramping *Musculoskeletal Musculoskeletal: Reports back pain, Reports myalgias and Reports other (No small joint swelling or Pain) *Neurologic Neurologic: Reports headache(s) and Reports weakness Psychiatric Psychiatric: Denies homicidal ideation and Denies suicidal ideation Endocrine Endocrine: Reports fatigue and Denies heat intolerance Hematologic/Lymphatic Hematologic/Lymphatic: Denies easy bleeding and Denies lymphadenopathy Allergic/Immunologic Allergic/Immunologic: Denies itchy eyes, Denies lip swelling, Denies throat swelling and Reports wheezing Pulmonology Exam Inpatient Vital signs and Labs for Last 24 Hours: Temp Pulse Resp BP Pulse Ox O2 Del Method O2 Flow Rate 98.1 F 90 20 121/63 93 L Nasal Cannula 2 05/20/23 08:00 05/20/23 08:00 05/20/23 08:00 05/20/23 08:00 05/20/23 08:00 05/20/23 08:00 05/20/23 08:00 Laboratory Results - last 24 hr 05/19/23 09:36: D-Dimer 0.75 H I & O for Labs for Last 24 Hours: Intake & Output 05/17/23 05/18/23 05/19/23 05/20/23 23:59 23:59 23:59 23:59 Intake Total 1245 / 1365 1490 / 1490 360 / 360 Output Total 0 / 0 0 / 0 500 / 500 0 / 0 Balance 0 / 375 1245 / 1365 990 / 990 360 / 360 Weight 98 lb 98 lb 12.8 oz 103 lb 9.876 oz 108 lb Constitutional: Present moderate distress Head: Present normocephalic and atraumatic ENT: Present normal exam, normal oropharynx and mucous membranes moist Neck: Present normal in
--- NOTE | 2023-05-20 10:31 | PC.NURSE ---
RESP CARE NOTE: Pt found on room air, SPO2 at 90%. Will continue to monitor patient.
--- NOTE | 2023-05-20 10:36 | PC.NURSE ---
ROOM AIR SAT 88% 1LNC APPLIED
--- NOTE | 2023-05-20 11:01 | CARE MANAGER ---
Patient's RA saturation at rest was 88%.
--- NOTE | 2023-05-20 11:11 | CARE MANAGER ---
Patient discharging home today and will require home supplemental O2. Patient Choice signed for [facility]. Order/clinical faxed and portable will be delivered prior to discharge home.
--- NOTE | 2023-05-20 11:14 | CT_ITS ---
FINAL REPORT CLINICAL HISTORY: Hypoxia FINDINGS: Thin section axial CT images of the chest were obtained with contrast. 3D reformatted images were also obtained. This study was performed with techniques to keep radiation doses as low as reasonably achievable (ALARA). Individualized dose reduction techniques using automated exposure control or adjustment of mA and/or kV according to the patient''s size were employed. There is no evidence of pulmonary embolism. There is no evidence of thoracic aortic aneurysm or dissection. There is no evidence of mediastinal or hilar mass or adenopathy. There is no evidence of pulmonary mass or nodule. There is mild bibasilar atelectasis and small effusions. Note is made of anasarca. IMPRESSION: No evidence of pulmonary embolism. Bibasilar atelectasis and small effusions. Reviewed, Interpreted and Dictated by Elder Shukla III, MD Transcribed by Kim Hernandez Authenticated and . [facility]
--- NOTE | 2023-05-21 03:37 | PC.NURSE ---
PATIENT HAS RESTED WELL. NO COMPLAINTS VOICED. 02 AT 2LNC. REPORTS SOA ON EXERTION.
[2023-05-21 04:00] VITALS: BP 130/73; PULSE 75; RESP 22; TEMP 36.8; O2SAT 90; BMI 18.0
[2023-05-21 06:35] VITALS: PULSE 78; O2SAT 90
[2023-05-21 07:51] VITALS: BP 138/63; PULSE 97; RESP 19; TEMP 36.9; O2SAT 90
[2023-05-21 10:19] VITALS: PULSE 82; O2SAT 90
--- NOTE | 2023-05-21 10:31 | EXP.ACUTE.PN ---
Subjective *Date: 05/21/23 *Time: 10:31 Interval history: Dr. Jose's note from 05/20 is greatly appreciated. She feels much better this morning. She is sitting up and on room air with sats above 90. She is ready for discharge. She will be discharged on doxycycline for another 5 days. She will continue on prednisone 40 mg a day until follow-up. She will be seen in follow-up by Dr. Clifton and by Dr. Jose. She has a nebulizer at home and home oxygen has been arranged and is waiting for her. Medical Exam Vital signs and Labs for Last 24 Hours: Vital Signs Temp Pulse Pulse Resp BP Pulse Ox O2 Del Method 05/21/23 10:19 82 05/21/23 10:19 82 05/21/23 10:19 90 L Room Air 05/21/23 07:51 98.4 F 97 H 19 138/63 90 L Room Air 05/21/23 06:35 78 05/21/23 06:35 78 05/21/23 06:35 90 L Room Air 05/21/23 06:31 Nasal Cannula 05/21/23 04:49 Nasal Cannula 05/21/23 04:00 98.3 F 75 22 130/73 90 L Room Air 05/21/23 02:50 Nasal Cannula 05/21/23 00:56 Nasal Cannula 05/20/23 22:53 Nasal Cannula 05/20/23 21:00 Nasal Cannula 05/20/23 20:00 91 L Nasal Cannula 05/20/23 20:00 98.3 F 78 16 136/82 96 Room Air 05/20/23 19:23 76 05/20/23 19:23 76 05/20/23 18:18 Nasal Cannula 05/20/23 17:00 Nasal Cannula 05/20/23 16:00 98.1 F 94 H 20 126/68 91 L Nasal Cannula 05/20/23 15:00 Nasal Cannula 05/20/23 13:00 Nasal Cannula 05/20/23 14:43 78 05/20/23 14:43 77 05/20/23 11:00 Nasal Cannula 05/20/23 10:55 88 L Room Air O2 Flow Rate 05/21/23 10:19 05/21/23 10:19 05/21/23 10:19 05/21/23 07:51 05/21/23 06:35 05/21/23 06:35 05/21/23 06:35 05/21/23 06:31 2 05/21/23 04:49 2 05/21/23 04:00 05/21/23 02:50 2 05/21/23 00:56 2 05/20/23 22:53 2 05/20/23 21:00 2 05/20/23 20:00 2 05/20/23 20:00 05/20/23 19:23 05/20/23 19:23 05/20/23 18:18 1 05/20/23 17:00 1 05/20/23 16:00 1 05/20/23 15:00 1 05/20/23 13:00 1 05/20/23 14:43 05/20/23 14:43 05/20/23 11:00 1 05/20/23 10:55 Intake and Output 05/20/23 05/21/23 05/21/23 19:59 03:59 11:59 Intake Total 1970 Output Total 100 / 100 0 / 100 Balance 260 / 1871 749 / 1871 862 / 1871 Intake: Intake, Oral Amount 360 / 600 240 / 600 Intake, Total IV Amount 749 / 1371 622 / 1371 0.9 % Sodium Chloride 1000ML 1, 499 / 871 372 / 871 000 ml @ 75 mls/hr IV .[id number] [facility] Rx#:[id number] Doxycycline Hyclate 100 mg In 0 250 / 500 250 / 500 .9 % Sodium Chloride 250 ml @ 166.667 mls/hr IV Q12H [facility] Rx#: [id number] Output: Output, Urine Amount 100 / 100 0 / 100 Other: Number of Unmeasured Voids 0 4 Weight 112 lb 4.8 oz Patient Weight 05/21/23 11:59 Weight 112 lb 4.8 oz I & O for Labs for Last 24 Hours: Intake & Output 05/18/23 05/19/23 05/20/23 05/21/23 11:59 11:59 11:59 11:59 Intake Total 615 / 615 1020 / 1020 1460 / 1460 1970 Output Total 0 / 0 500 / 500 0 / 0 100 / 100 Balance 615 / 615 520 / 520 1460 / 1460 1871 / 1871 Weight 98 lb 12.8 oz 104 lb 1 oz 108 lb 112 lb 4.8 oz Microbiology Reports for the Last 24 Hours: Microbiology 05/18/23 15:30 Sputum - Expectorated Sputum Gram Stain - Final Head: Present normocephalic Eyes: Present as per HPI Neck: Present normal inspection Respiratory: Present decreased breath sounds; Absent respiratory distress Cardiac: Present Reg Rate and Rhythm GI: Present soft; Absent tenderness Rectal (female): Present deferred (female): Present deferred Extremities: Absent edema Skin: Present intact Neuro: Present alert, awake and oriented x 3 Assessment and Plan *Assessment and plan (1) Acute respiratory failure with hypoxia: Status: Acute Category: Medical Code(s): J96.01 - Acute respiratory fail
--- NOTE | 2023-05-23 16:40 | CARE MANAGER ---
Contacted patient related to hospital discharge. She has her new medications and is going to schedule an appointment with Dr. Clifton and pulmonology. She denies questions or concerns. CONNIE Garcia
--- NOTE | 2023-05-26 08:52 | EXP.DC.SUM ---
General Admission date:: 05/17/23 Discharge date: 05/21/23 HPI HPI HPI: This patient is a 72-year-old female with a history of COPD, hypertension, and hyperlipidemia presented to the emergency department for evaluation with concern for body aches, cough, congestion, nausea, and vomiting that started yesterday. She states she is been doing breathing treatments at home with minimal improvement. She denies any associated chest pain, but she does complain of history of cardiac stents. She denies any abdominal pain, changes bowel movements, or other concerns. She is otherwise been well. In summary, this patient is a 72-year-old female presenting to the Emergency Department for evaluation of bodyaches, cough, shortness of breath, nausea, and vomiting. Differential diagnoses considered include but are not limited to viral syndrome, pneumonia, COPD exacerbation, respiratory failure. Ruling out the most morbid conditions drove assessment. It should be noted patient's history includes COPD which is not at goal therapy. This complicates all aspects of care by increasing patient's risk for morbidity. I reviewed patient's past medical records and noted history of recurrent otitis media. On exam, the patient has prolonged expiratory phase with hypoxia on room air. She has diffusely diminished breath sounds bilaterally and sounds very tight. She also complains of right ear pain, which is concerning for right otitis media. Workup included CBC, CMP, VBG, troponin, chest x-ray, and EKG as well as viral swab. She was given 3 DuoNebs as well as IV methylprednisolone and doxycycline for symptomatic improvement. She has multiple antibiotic allergies, so given otitis media as well as her COPD exacerbation, she was given doxycycline.. I independently interpreted x-ray prior to the radiologist read and noted hyperinflation consistent with COPD but no other acute concerns. Please see their read for final interpretation. Labs were obtained that demonstrated mild leukopenia, mild hyponatremia, mildly elevated CO2, and mildly elevated AST but no other acute concerns. On reassessment, patient had good improvement after administration of medications as above, but she continues to have slight wheezing and also was not able to be weaned from oxygen. Oxygen saturation again dropped to 86% on room air. Given this, I had an interactive discussion with Dr. Copeland manufacturing production technician for [employer] who excepted the patient for admission on behalf of [facility] for COPD exacerbation and acute respiratory failure with hypoxia. The patient was admitted in stable condition for further evaluation and management. (above as per ER physician) Hospital Course Hospital Course Hospital Course: The patient's chest x-ray showed COPD but nothing acute. Her flu and COVID tests were negative. She was started on DuoNebs, steroids, and doxycycline. Her chest x-ray was repeated and a D-dimer was ordered. Her repeat chest x-ray continued to show COPD. Her D-dimer was slightly elevated therefore a CTA was ordered. It showed no evidence of PE. There was bibasilar atelectasis and small effusions. By 05/20/2023, she was feeling better. The scheduled nebulizer treatments seemed to be helping. Her wheezing and shortness of breath had improved but she was still requiring oxygen. She was finally able to eat. Pulmonology was consulted and he felt she should continue on oxygen. He did give her a one-time dose of IV Lasix at 40 mg. He felt she should continue DuoNebs every 6 hours and he initiated Pulmicort every 12 hours scheduled. He felt she should be weaned to prednisone 40 mg daily. Upon discharge, he wanted her to have a Trelegy inhaler and complete a 5-day course of doxycycline. His plan was to follow-up with her in his office in 3 to 4 weeks post discharge. By 05/21/2023 she was feeling much better. Her room air sats were above 90. It was felt she was stable for discharge on doxycycline and prednisone. She lavern
== END 2023-05-21 12:37 | disposition home or self-care (01) ==
LOC: ER 14:32 → 2ND 14:52
PROVIDERS: Internal Medicine Adolescent Medicine; Admitting Provider Family Medicine; Emergency Provider Emergency Medicine; PCP Family Medicine; Visit Provider Family Medicine
DX: J06.9 Acute upper respiratory infection, unspecified (principal); J96.01 Acute respiratory failure with hypoxia; J44.1 Chronic obstructive pulmonary disease with (acute) exacerbation; H66.91 Otitis media, unspecified, right ear; I11.9 Hypertensive heart disease without heart failure; I25.118 Atherosclerotic heart disease of native coronary artery with other forms of angina pectoris; F17.200 Nicotine dependence, unspecified, uncomplicated; E78.2 Mixed hyperlipidemia; I25.10 Atherosclerotic heart disease of native coronary artery without angina pectoris; E78.5 Hyperlipidemia, unspecified; Z95.5 Presence of coronary angioplasty implant and graft
CPT/HCPCS: 36415; 71045; 71046; 71275; 80048; 80053; 82803; 83605; 84484; 85025; 85378; 87070; 87205; 87636; 93005; 94640; 94761; 99291; G0378; Q9967

== ENCOUNTER → 2023-05-30 14:52 | Outpatient (CLI) | payer MEDICARE, OTHER, SELFPAY | PROVIDERS: PCP Family Medicine; Visit Provider Family Medicine | DX: R19.7 Diarrhea, unspecified (principal) | CPT/HCPCS: 87177 ==

== ENCOUNTER 2023-06-27 10:21 | Outpatient (CLI) | payer MEDICARE, OTHER, SELFPAY ==
--- NOTE | 2023-06-27 10:22 | NM_ITS ---
APPROVED REPORT Exam: Nuclear Stress Test Indication: chest pain..fatigue Patient Location: Outpatient Stress Tech: Mabel Armstrong [place] Tech:NICK Lopez RT(R)(N) Ht: 5 ft 6 in Wt: 100 lbs Bra Size: 32d HR: 69 bpm BP: 135/71 mmHg BSA: 1.49 m2 TID: 1.00 BMI: 16.1 History: chest pain...fatigue Procedure: Patient received 0.4 mg of intravenous Lexiscan, resting heart rate 69 bpm, resting blood pressure 135/71 mmHg, with Lexiscan maximum heart rate achieved was 98 bpm which is 85 % of the maximum predicted heart rate and blood pressure was 135/71 mmHg. With Lexiscan, patient denied any complaint of chest pain. Cardiac Stress and Resting SPECT Images: Cardiac Stress and Resting SPECT images were obtained using technetium 99m Myoview 30.8 mCi stress and 10.55 mCi at rest. Resting and stress imaging in supine and prone positions demonstrate a large sized, mild, partially reversible perfusion defect in the anterior and anteroseptal LV baez. Gated imaging demonstrates normal global LV systolic function there is mild hypokinesis of the anterior LV wall. LVEF is calculated at 67%. Conclusion: Large sized, mild, partially reversible perfusion defect in the anterior and anteroseptal LV baez. Gated imaging demonstrates normal global LV systolic function there is mild hypokinesis of the anterior LV wall. LVEF is calculated at 67%. Electronically signed by : Sharee Rubio MD 06/28/2023 05:10:31
--- NOTE | 2023-06-27 10:30 | CA_ITS ---
APPROVED REPORT EXAM: Comprehensive 2D, Doppler, and color-flow Echocardiogram Continuous Linter Drier Operator: Cici Aiken RDCS Ht: 5 ft 6 in Wt: 99lbs BSA: 1.48 BP: 122/73 mmHg Indications: CP,CAD,COPD,HTN 2D Dimensions Aortic Root 1.60 cm F: 2.7 - 3.3 LA Volume 38.80 mL Left Atrium 2.95 cm F: 2.7 - 3.8 LA Volume Index 26.22 mL/m2 (M/F) 16-34 M-Mode Dimensions RVDd 0.93 cm (0.9-2.6) LVDd 4.73 cm (3.5-5.7) Ao Diam 3.52 cm (2.0-3.7) LVDs 2.99 cm (3.5-5.7) IVSd 0.39 cm (0.6-1.1) PWd 0.52 cm (0.6-1.1) EF (Teich) 66.60% FS 36.80% EDV (Teich) 103.90 mL ESV (Teich) 34.70 mL LV Diastology E Decel Time 197 (160-240 msec) E/A Ratio 1.4 MED E' 8.4 (>= 7 cm/sec) E'/MED E' Ratio 7.96 (<= 14) LAT E' 8.7 (>= 10 cm/sec) E/LAT E' Ratio 7.69 (<= 14) Mitral Valve MV E Max Coleman. 67.0 (40-130 cm/s) MV A Velocity 47.0 (40-130 cm/s) E/A Ratio 1.42 MV Decel. Time 197 (160-240 ms) Tricuspid Valve TR P. Velocity 270.00 cm/s RAP Estimate 10.00 mmHg RVSP 39.10 mmHg Left Ventricle The left ventricle is normal size. The left ventricular systolic function is normal. The left ventricular ejection fraction is within the normal range. There is normal left ventricular wall thickness. There is normal LV segmental wall motion. The left ventricular diastolic function is normal. LVEF is 50-55%. Right Ventricle The right ventricle is mildly dilated. Right ventricle is mildly hypokinetic. Atria The left atrium size is mildly dilated. The right atrium is mildly dilated. Aortic Valve The aortic valve is mildly thickened. There is no aortic valvular stenosis. No aortic regurgitation is present. Mitral Valve The mitral valve leaflets are mildly thickened. No evidence of mitral valve stenosis. There is no mitral valve regurgitation noted. Tricuspid Valve The tricuspid valve leaflets are thin and pliable. Trace tricuspid regurgitation. There is insufficient TR jet to estimate RVSP. Pulmonic Valve The pulmonary valve is normal in structure. Trace pulmonic regurgitation. Great Vessels The aortic root is normal in size. The ascending aorta is not well-visualized. IVC is normal in size and collapses >50% with inspiration. Pericardium There is no pericardial effusion. Other Information Study Quality: Adequate Conclusion Normal LV systolic function. Mild RV dilation with mild reduction in RV function. No significant valvular stenosis or regurgitation. Electronically signed by : Sharee Rubio MD 06/30/2023 02:49:46
[2023-06-27] MEDS: ISOTOPE MYOVIEW (PER STUDY) 1 DOSE IV (13:13)
[2023-06-27] MEDS: REGADENOSON 0.4MG/5ML SYRINGE 0.400000000000000022 MG IV (13:13)
[2023-06-27] MEDS: SODIUM CHLORIDE 0.9% 10ML SYR (RAD ONLY) 10 ML IV ×2 (13:13)
--- NOTE | 2023-06-27 14:39 | CA_ITS ---
APPROVED REPORT Exam: Pharmacologic Technologist: Mabel Vizcarra, Ht: 5 ft 6 in Wt: 99 lbs BSA: 1.48 m2 HR: 65 bpm BP: 135/71 mmHg Rhythm: NSR Medical History Medications: Lisinopril,,,,, Atorvastatin,,,,, Prednisone,,,,, BisOPROLOL Fumarate,,,,, Multivitamin,,,,, Alendronate,,,,, Furosemide,,,,, Potassium Chloride ER,,,,, DOuneb,,,,, DOxycycline monohydrate,,,,, Vitamin B-complex,,,,, Stress Test Details Test: LEXISCAN Reason for pharmacologic stress test: physical limitation. HR Resting HR: 69 bpm Max Heart Rate (APMHR): 147 bpm Max HR Achieved: 98 bpm Target HR (85% APMHR): 125 bpm % of APMHR: 67 Recovery HR: 81 bpm BP Resting BP: 135.0/71.0 mmHg Max BP: 135.0/71.0 mmHg Recovery BP: 134.0/75.0 mmHg ECG Resting ECG: Normal sinus rhythm Stress ECG: No significant ST changes Arrhythmia: None Clinical Exercise duration: 04:00 min Highest Stage Achieved: Exercise capacity: 1.0 METs Stress ECG Conclusion Symptoms: nausea, SOA, headache Arrhythmias/Ectopy: none ST-T Changes: EKG is unremarkable due to Lexiscan infusion Conclusion: Unremarkable Lexiscan stress test. Myoview images are reported separately. Test Summary REST . . . . . . . Resting REST 06:21 . . 69 . 135/ 71 . . Stage 1 01:00 . . 90 . . . . Stage 2 01:00 . . 95 . 129/ 78 . . Stage 3 01:00 . . 92 . 122/ 72 . . Stage 4 01:00 . . 92 . 122/ 72 . Stop exercise at 04:00 RECOVERY 01:00 . . 87 . 127/ 74 . . RECOVERY 01:43 . . 80 . 134/ 75 . . Electronically signed by : hSaree Rubio MD 06/28/2023 05:08:02
== END 2023-06-27 23:59 ==
LOC: RAD 10:22
PROVIDERS: PCP Family Medicine; Visit Provider Physician Assistant
DX: E78.5 Hyperlipidemia, unspecified (principal); I11.9 Hypertensive heart disease without heart failure; I25.118 Atherosclerotic heart disease of native coronary artery with other forms of angina pectoris; J44.9 Chronic obstructive pulmonary disease, unspecified; R06.00 Dyspnea, unspecified; R07.89 Other chest pain; Z95.5 Presence of coronary angioplasty implant and graft
CPT/HCPCS: 78452; 93017; 93018; 93306; A9502; J2785

== ENCOUNTER 2023-07-14 13:43 | Outpatient (CLI) | payer MEDICARE, OTHER, SELFPAY ==
[2023-07-14 14:28] LABS: Hematocrit 43.7 % (37.0-47.0); Hemoglobin 14.8 g/dL (12.2-16.2); Red Blood Count 4.56 M/mm3 (4.20-5.40); White Blood Count 9.6 K/mm3 (4.8-10.8)
[2023-07-14 14:29] LABS: Basophils # 0.1 K/mm3 (0-0.2); Basophils % 0.5 % (0.1-2.0); Eosinophils # 0.1 K/mm3 (0.0-0.4); Eosinophils % 0.5 % (0.1-12.0); Lymphocytes # 2.1 K/mm3 (0.7-4.5); Lymphocytes % 22.1 % (10-50); Mean Corpuscular Hemoglobin 32.6 pg (27.0-31.2); Mean Corpuscular Volume 95.8 fl (81-99); Mean Platelet Volume 8.3 fl (7.4-10.4); Monocytes # 0.6 K/mm3 (0.1-1.0); Monocytes % 5.9 % (1.7-9.3); Neutrophils # 6.8 K/mm3 (1.8-7.8); Platelet Count 230 K/mm3 (142-424); Red Cell Distribution Width 13.9 % (11.5-17.5)
[2023-07-14 15:04] LABS: Chloride 98 mmol/L (98-107); Sodium 133 mmol/L (136-145)
[2023-07-14 15:05] LABS: Potassium 4.5 mmoL/L (3.5-5.1)
[2023-07-14 15:07] LABS: Alanine Aminotransferase 30 U/L (12-78); Albumin Level 4.4 g/dl (3.5-5.0); Albumin/Globulin Ratio 2.4 (1.1-1.8); Alkaline Phosphatase 79 U/L (38-126); Anion Gap 11.5 mEq/L (5-15); Aspartate Amino Transferase 40 U/L (14-36); Blood Urea Nitrogen 13 mg/dl (7-17); Carbon Dioxide 28 mmol/L (22.0-30.0); Estimated Glomerular Filt Rate 82 ml/min (>60); GFR (African American) 99 ML/MIN (>60); Globulin 1.8 g/dL (1.3-3.2); Total Protein,Serum 6.2 g/dl (6.3-8.2)
[2023-07-14 15:08] LABS: Calcium 9.2 mg/dl (8.4-10.2); Glucose 92 mg/dl (74-100)
[2023-07-14 15:37] LABS: Thyroid Stimulating Hormone 2.46 uIU/mL (0.465-4.68)
[2023-07-14 15:59] LABS: Vitamin B12 > 1000 pg/mL (239-931)
== END 2023-07-14 23:59 ==
LOC: LAB 13:45
PROVIDERS: PCP Family Medicine; Visit Provider Internal Medicine Medical Oncology
DX: D61.818 Other pancytopenia; I10 Essential (primary) hypertension
CPT/HCPCS: 36415; 80053; 82607; 82746; 84443; 85025

== ENCOUNTER 2023-07-26 07:44 | Day surgery (SDC) | payer MEDICARE, OTHER, SELFPAY ==
[2023-07-26] VITALS (32 sets, daily range): BP systolic 80–139; BP diastolic 40–73; PULSE 52–81; RESP 15–20; TEMP 37; O2SAT 91–100; BMI 16.1
--- NOTE | 2023-07-26 | IR_ITS ---
APPROVED REPORT Patient Location: Outpatient PROCEDURES Left heart catheterization Left ventriculogram Selective coronary angiogram INDICATION Known coronary artery disease, Angina pectoris, Abnormal Myoview Informed consent was obtained prior to the procedure. COMPLICATIONS None Estimated Blood Loss: Less than 10 mls TECHNIQUE One percent lidocaine used to anesthetize the right anterior aspect of the wrist. The right radial artery was accessed via the Seldinger technique. A 6 Burkinan sheath was placed in the right radial artery. 2.5 mg of Verapamil, 800 mcg of nitroglycerin, 1mg Lidocaine and 5000 U Heparin were given through the arterial sheath. The papa catheter was inserted to the radial artery where retrograde angiography was performed. The vessel was too small to proceed therefore it was converted to a right groin procedure One percent lidocaine was used to anesthetize the right groin. The right femoral artery was accessed via the Seldinger technique. A 4-Burkinan sheath was placed in the right femoral artery. The JL-4 and JR-4 catheter was also used to perform left heart catheterization left ventriculogram and selective coronary angiogram. At the end of the procedure the patient was transferred to the post-op holding area in stable condition for arterial sheath removal. ANGIOGRAPHIC RESULTS The left main artery Has an ostial 30% stenosis The left anterior descending artery Is proximally patent followed by a mid vessel 30% concentric stenosis. Medium sized bifurcating first diagonal artery has an ostial 80% followed by proximal 90% stenosis followed by mid vessel 90% stenosis. The vessel is just slightly smaller than 2 mm in diameter. The circumflex artery Nondominant with diffuse 20% stenoses The right coronary artery Dominant with diffuse 10 to 20% stenoses The MOTT ventriculogram reveals Normal 65% The left ventricular end-diastolic pressure 10 mmHg IMPRESSION Coronary disease primarily confined to a first diagonal artery which is best managed medically Normal ejection fraction Normal LVEDP PLAN 1. Aggressive risk factor modification. Stenting is not feasible to the diagonal artery and highly not recommended as this would cause jailing and closure of an equally sized branch of the first diagonal artery. This would also further encroach upon the proximal LAD which is minimally diseased. 2. Maximize antianginal medication Electronically signed by : Walker Knowles MD 07/26/2023 12:27:19
[2023-07-26 08:12] LABS: Basophils % 0.3 % (0.1-2.0); Eosinophils # 0.1 K/mm3 (0.0-0.4); Eosinophils % 1.4 % (0.1-12.0); Hemoglobin 13.9 g/dL (12.2-16.2); Lymphocytes % 29.4 % (10-50); Mean Corpuscular HGB Conc 33.2 g/dL (31.8-35.4); Mean Corpuscular Hemoglobin 32.3 pg (27.0-31.2); Mean Corpuscular Volume 97.4 fl (81-99); Mean Platelet Volume 8.6 fl (7.4-10.4); Monocytes # 0.5 K/mm3 (0.1-1.0); Monocytes % 6.7 % (1.7-9.3); Neutrophils # 4.2 K/mm3 (1.8-7.8); Neutrophils % 62.2 % (37.0-80.0); Platelet Count 252 K/mm3 (142-424); Red Blood Count 4.31 M/mm3 (4.20-5.40); Red Cell Distribution Width 14.1 % (11.5-17.5); White Blood Count 6.8 K/mm3 (4.8-10.8)
[2023-07-26 08:18] LABS: Chloride 104 mmol/L (98-107); Sodium 138 mmol/L (136-145)
[2023-07-26 08:19] LABS: Potassium 3.6 mmoL/L (3.5-5.1)
[2023-07-26 08:21] LABS: Blood Urea Nitrogen 9 mg/dl (7-17); Creatinine Clearance Estimated 36 mL/min (50-200); Estimated Glomerular Filt Rate 98 ml/min (>60); GFR (African American) 119 ML/MIN (>60)
[2023-07-26 08:22] LABS: Anion Gap 7.6 mEq/L (5-15); Calcium 8.5 mg/dl (8.4-10.2); Carbon Dioxide 30 mmol/L (22.0-30.0); Glucose 93 mg/dl (74-100)
[2023-07-26] MEDS: 0.9 % SODIUM CHLORIDE 500 ML 25 ML IV (09:55)
[2023-07-26] MEDS: HEPARIN 1,000 UNITS/ML 10ML VIAL (CATH LAB) 10000 UNIT IV (09:55)
[2023-07-26] MEDS: LIDOCAINE 1% 10ML MDV 20 ML IJ (09:55)
[2023-07-26] MEDS: HEPARIN 1,000 UNITS/500ML NS (CATH LAB) 3000 UNIT IV (09:55)
[2023-07-26] MEDS: VERAPAMIL 2.5MG/ML 2ML VIAL 2.5 MG IV (09:56)
[2023-07-26] MEDS: NITROGLYCERIN 800MCG/8ML SYR (CATH LAB) 800 MCG IA (09:56)
[2023-07-26] MEDS: diphenhydrAMINE 50MG/ML VIAL 50 MG IV (09:56)
[2023-07-26] MEDS: PROTAMINE SULFATE 50MG/5ML VIAL (CATH LAB) 50 MG IV (10:28)
[2023-07-26] MEDS: MIDAZOLAM HCL 1MG/1ML 5ML VIAL 1 MG IV (10:30)
[2023-07-26] MEDS: FENTANYL 100MCG/2ML VIAL 50 MCG IV (10:32)
[2023-07-26] MEDS: IOPAMIDOL-370 (76%);100ML BOTTLE 60 ML IV (13:29)
== END 2023-07-26 15:13 | disposition home or self-care (01) ==
PROVIDERS: PCP Family Medicine; Visit Provider Internal Medicine
DX: I25.118 Atherosclerotic heart disease of native coronary artery with other forms of angina pectoris (principal); Z79.899 Other long term (current) drug therapy; I10 Essential (primary) hypertension; E78.5 Hyperlipidemia, unspecified; F17.210 Nicotine dependence, cigarettes, uncomplicated; R06.02 Shortness of breath; J44.9 Chronic obstructive pulmonary disease, unspecified
CPT/HCPCS: 80048; 85025; 93458; 99152; 99153; C1725; C1769; J1644; J2720; Q9967

== ENCOUNTER 2023-08-09 09:51 | Outpatient (CLI) | payer MEDICARE, OTHER, SELFPAY ==
[2023-08-09 10:30] VITALS: PULSE 78; PULSE 80
== END 2023-08-09 23:59 ==
LOC: RT 09:51
PROVIDERS: PCP Family Medicine; Visit Provider Internal Medicine Pulmonary Disease
DX: R06.09 Other forms of dyspnea (principal)
CPT/HCPCS: 94060; 94618; 94640; 94726; 94729

== ENCOUNTER 2023-11-22 12:32 | Outpatient (CLI) | payer MEDICARE, OTHER, SELFPAY ==
--- NOTE | 2023-11-22 12:35 | XR_ITS ---
FINAL REPORT CLINICAL HISTORY: Rt Knee PAin FINDINGS: Right knee Four views were obtained. There is no acute fracture or dislocation. There are mild degenerative changes. No soft tissue abnormality is identified. IMPRESSION: No acute process. Reviewed, Interpreted and Dictated by Elder Shukla III, MD Transcribed by Kim Hernandez Authenticated and [facility]
== END 2023-11-22 23:59 | disposition home or self-care (01) ==
LOC: RAD 12:33
PROVIDERS: PCP Family Medicine; Visit Provider Orthopaedic Surgery
DX: M25.561 Pain in right knee (principal)
CPT/HCPCS: 73562

== ENCOUNTER 2024-01-26 12:55 | Outpatient (CLI) | payer MEDICARE, OTHER, SELFPAY ==
--- NOTE | 2024-01-26 13:06 | XR_ITS ---
FINAL REPORT CLINICAL HISTORY: .LEG LENGTH DISCREPANCY FINDINGS: BONE LENGTH STUDY Single AP view of the bilateral lower extremities were obtained. The leg length is within 1 mm of each other. No leg length discrepancy is identified. There are postoperative changes in the proximal right femur. IMPRESSION: No leg length discrepancy identified. Reviewed, Interpreted and Dictated by Elder Shukla III, MD Transcribed by Kim Hernandez Authenticated and [facility]
== END 2024-01-26 23:59 | disposition home or self-care (01) ==
LOC: RAD 12:56
PROVIDERS: PCP Family Medicine; Visit Provider Orthopaedic Surgery
DX: M21.70 Unequal limb length (acquired), unspecified site (principal)
CPT/HCPCS: 77073

== ENCOUNTER 2024-03-13 08:45 | Day surgery (SDC) | payer MEDICARE, OTHER, SELFPAY ==
[2024-03-12 12:32] VITALS: BMI 16.6
--- NOTE | 2024-03-13 09:05 | EXP.ANES.CKL ---
[facility] Disclaimer: The information contained in this section may have been updated after the patient was seen, as this information can be updated by other users. Medical History History of femur fracture COPD mixed type Abnormal nuclear cardiac imaging test Smoking greater than 30 pack years Dyspnea on exertion Acute respiratory failure with hypoxia Acute right otitis media Viral URI with cough Perforated left tympanic membrane on examination Recurrent otitis media of right ear Right leg pain Hyperkalemia Diastolic dysfunction Fall Dyspnea Typical angina Viral infection Hypokalemia Anemia Alcohol use disorder HHD (hypertensive heart disease) CAD (coronary artery disease) Smoker Hyperlipidemia Hypertensive disorder Coronary arteriosclerosis Surgical History History of hysterectomy Hx of myringotomy History of tympanoplasty of left ear History of left mastoidectomy Hx of tonsillectomy Stented coronary artery Family History Other Family history non-contributory Social History Smoking Status: Current every day smoker tobacco type: cigarettes packs per day: 1 alcohol intake: never substance use type: denies use current occupational status: retired Travel in the last 8 weeks: None household members: spouse housing: house current occupational exposures/hazards: No caffeine: Yes [facility] Anesthesia Checklist Patient Identification Patient Identification: Arm Band and Verbal (Name & ) Structural Data Admitted From: Home Planned Operative Procedure/s: Colonoscopy Consent for Planned Operative Procedure(s) Verified: Yes Verified Documents: Surgical Consent and History and Physical NPO Status Verified Time NPO: 00:00 Additional verifications Anesthesia Reactions: No Airway Assessment Mallampati Score:: Class II C-Spine Mobility Assessed: Yes TMJ Mobility Assessed: Yes Dentition: Dentures-poor fitting (Removed) Neurological Assessment Level of Consciousness: Awake Hx Seizures: No Numbness or tingling in extremities: No Anesthesia Plan Anesthesia Risk discussed: Yes Anesthesia Plan: Verified ASA Class: III Anesthesia Type: MAC
[2024-03-13 09:07] VITALS: BP 128/69; PULSE 66; RESP 18; TEMP 36.5; O2SAT 98
--- NOTE | 2024-03-13 09:38 | P.PCN_ITS ---
Procedure: Date: 03/13/24 Patient Date of :: 1950 Procedure Performed:: Colonoscopy Indications:: Screening Performing Provider:: Isrrael Betancourt MD Referring Provider:: . Sedation:: Monitored anesthesia care Procedure:: After informed consent was obtained the patient was taken to the endoscopy suite. Sedation ensued after the patient was transferred to the left lateral decubitus position. Pulse, blood pressure, and oxygen saturation were monitored throughout the procedure. Digital rectal exam revealed no significant abnormality. The colonoscope was placed in position. The entire colon was eval uated. The colonoscope was carefully removed and the patient was transferred to recovery in stable condition. Please see findings and specimens below for detail. Findings:: Firm irregular tissue along right lateral margin of anal canal (differential includes complex senescent hemorrhoid, neoplasm, etc.) Profound tortuosity (particularly sigmoid) Moderate spasticity Moderate bowel preparation Specimens:: None Recommendations:: Repeat colonoscopy in 3-5 years secondary to above findings. Evaluation with regard to anal canal abnormality will be ongoing. Complications:: No immediate Estimated blood obtained (mL): 0 Colonoscopy Component Colonoscopy Component Was a colonoscopy performed during today's procedure?: Yes Recommended follow up colonoscopy of at least 10 years?: No If no, follow up colonoscopy recommended in ___ years?: (See above) Reason for not recommending >/= 10 yr follow-up interval?: (See above)
[2024-03-13 09:44] VITALS: O2SAT 99
[2024-03-13 10:21] VITALS: BP 98/51; PULSE 64; RESP 16; TEMP 36.6; O2SAT 98
[2024-03-13 10:31] VITALS: BP 100/54; PULSE 61; RESP 16; O2SAT 99
[2024-03-13 10:41] VITALS: BP 120/71; PULSE 69; RESP 16; O2SAT 99
[2024-03-13 10:51] VITALS: BP 114/66; PULSE 72; RESP 16; O2SAT 100
== END 2024-03-13 10:56 | disposition home or self-care (01) ==
PROVIDERS: PCP Psychiatry & Neurology Sleep Medicine; Visit Provider Surgery
PROC: 0DJD8ZZ Inspection of Lower Intestinal Tract, Via Natural or Artificial Opening Endoscopic (ICD-10-PCS; CPT G0121; principal; 2024-03-13 09:30)
DX: Z12.11 Encounter for screening for malignant neoplasm of colon (principal)
CPT/HCPCS: G0121

== ENCOUNTER 2024-03-21 11:12 | Outpatient (CLI) | payer MEDICARE, OTHER, SELFPAY ==
--- NOTE | 2024-03-21 12:01 | ECG_ITS ---
APPROVED REPORT Exam: Resting ECG HR:60 bpm ECG Measurements Heart Rate 60 AXES AK 196 P 78 QRSd 74 QRS 65 QT 418 T 61 QTc 418 Conclusion SINUS RHYTHM NORMAL ECG UNCONFIRMED REPORT Electronically signed by : Landen Copeland MD 03/23/2024 09:17:04
[2024-03-21 12:02] LABS: Basophils # 0.1 K/mm3 (0-0.2); Basophils % 0.7 % (0.1-2.0); Eosinophils # 0.1 K/mm3 (0.0-0.4); Eosinophils % 0.8 % (0.1-12.0); Hematocrit 41.2 % (37.0-47.0); Hemoglobin 13.8 g/dL (12.2-16.2); Lymphocytes # 2.1 K/mm3 (0.7-4.5); Lymphocytes % 25.3 % (10-50); Mean Corpuscular HGB Conc 33.5 g/dL (31.8-35.4); Mean Corpuscular Hemoglobin 32.4 pg (27.0-31.2); Mean Corpuscular Volume 96.6 fl (81-99); Mean Platelet Volume 7.8 fl (7.4-10.4); Monocytes # 0.5 K/mm3 (0.1-1.0); Monocytes % 5.6 % (1.7-9.3); Neutrophils # 5.7 K/mm3 (1.8-7.8); Neutrophils % 67.6 % (37.0-80.0); Platelet Count 212 K/mm3 (142-424); Red Blood Count 4.27 M/mm3 (4.20-5.40); Red Cell Distribution Width 13.6 % (11.5-17.5); White Blood Count 8.5 K/mm3 (4.8-10.8)
[2024-03-21 12:17] LABS: Chloride 100 mmol/L (98-107); Potassium 3.9 mmoL/L (3.5-5.1); Sodium 135 mmol/L (136-145)
[2024-03-21 12:20] LABS: Blood Urea Nitrogen 7 mg/dl (7-17); Estimated Glomerular Filt Rate 121 ml/min (>60); GFR (African American) 146 ML/MIN (>60)
[2024-03-21 12:21] LABS: Anion Gap 9.9 mEq/L (5-15); Calcium 8.9 mg/dl (8.4-10.2); Carbon Dioxide 29 mmol/L (22.0-30.0); Glucose 92 mg/dl (74-100)
== END 2024-03-21 23:59 | disposition home or self-care (01) ==
PROVIDERS: PCP Family Medicine; Visit Provider Surgery
DX: K62.9 Disease of anus and rectum, unspecified (principal)
CPT/HCPCS: 36415; 80048; 85025; 93005

== ENCOUNTER 2024-04-05 07:36 | Day surgery (SDC) | payer MEDICARE, OTHER, SELFPAY ==
[2024-04-03 15:07] VITALS: BMI 16.5
[2024-04-05] VITALS (8 sets, daily range): BP systolic 113–133; BP diastolic 54–75; PULSE 65–73; RESP 8–18; TEMP 36.4–36.8; O2SAT 94–99
[2024-04-05] MEDS: LACTATED RINGERS 1000ML 1,000 ML 25 ML IV (08:10)
--- NOTE | 2024-04-05 08:10 | EXP.ANES.CKL ---
[facility] Disclaimer: The information contained in this section may have been updated after the patient was seen, as this information can be updated by other users. Medical History History of femur fracture COPD mixed type Abnormal nuclear cardiac imaging test Smoking greater than 30 pack years Dyspnea on exertion Acute respiratory failure with hypoxia Acute right otitis media Viral URI with cough Perforated left tympanic membrane on examination Recurrent otitis media of right ear Right leg pain Hyperkalemia Diastolic dysfunction Fall Dyspnea Typical angina Viral infection Hypokalemia Anemia Alcohol use disorder HHD (hypertensive heart disease) CAD (coronary artery disease) Smoker Hyperlipidemia Hypertensive disorder Coronary arteriosclerosis Surgical History History of surgery on lower extremity History of colonoscopy History of hysterectomy Hx of myringotomy History of tympanoplasty of left ear History of left mastoidectomy Hx of tonsillectomy Stented coronary artery Family History Other Family history non-contributory Social History Smoking Status: Current every day smoker tobacco type: cigarettes packs per day: 1 alcohol intake: never substance use type: denies use current occupational status: retired Travel in the last 8 weeks: None household members: spouse housing: house current occupational exposures/hazards: No caffeine: Yes [facility] Anesthesia Checklist Patient Identification Patient Identification: Arm Band and Verbal (Name & ) Structural Data Planned Operative Procedure/s: EUA Consent for Planned Operative Procedure(s) Verified: Yes Verified Documents: Surgical Consent and History and Physical NPO Status Verified Time NPO: 00:00 Additional verifications Anesthesia Reactions: No Airway Assessment Mallampati Score:: Class II C-Spine Mobility Assessed: Yes TMJ Mobility Assessed: Yes Dentition: Dentures-poor fitting (Removed) Neurological Assessment Level of Consciousness: Awake Hx Seizures: No Numbness or tingling in extremities: No Anesthesia Plan Anesthesia Risk discussed: Yes Anesthesia Plan: Verified ASA Class: III Anesthesia Type: General
[2024-04-05] MEDS: CLINDAMYCIN PHOSPHATE/D5W 900 MG/50 ML PIGGYBACK 100 MG IV (09:44)
[2024-04-05] MEDS: METRONIDAZ/SOD CHL 500 MG/100 ML PIGGYBACK 100 MG IV (10:00)
[2024-04-05] MEDS: LIDOCAINE 1% 20ML MDV 20 ML (10:05)
--- NOTE | 2024-04-05 10:35 | P.OP_ITS ---
Date of procedure: 04/05/24 Pre-op Diagnosis:: Right lateral anal canal lesion Post-op Diagnosis:: Same Procedure performed:: Examination under anesthesia with biopsy (partial excision) of right lateral anal canal lesion Surgeon:: Isrrael Betancourt MD FORM BLOCK MAKER:: Stas Murray Anesthesia: LMA Estimated blood loss (mL): 10 Operative findings:: Firm irregular tissue along right lateral margin of anal canal consistent with findings from recent colonoscopy Operative note:: After informed consent was obtained the patient was taken to the operating room and placed in the supine position. General anesthesia was induced and she was transferred to a modified lithotomy position. Her perianal region was prepped and draped in a sterile fashion. Digital exam confirmed a right lateral canal lesion that was firm and somewhat centrally ulcerated. A 4-0 Vicryl stay suture was placed proximal to the palpable abnormality. Electrocautery was utilized to excise part of the tissue; however, secondary to extent of palpable findings complete excision was not attempted. Electrocautery was utilized to achieve hemostasis. A combination of 4-0 Vicryl (prior stay suture) and additional 2-0 Vicryl was utilized to reapproximate the mucosa and underlying subcutaneous tissue. Proctosol-coated Gelfoam was then placed in the anal canal. The patient's anesthetic agents were reversed and she was transferred recovery in stable condition. Condition: stable Disposition: PACU Specimens:: Right lateral anal canal lesion Complications:: No immediate
--- NOTE | 2024-04-05 10:51 | P.PNANES_ITS ---
[facility] Anesthesia Record Part I Anesthesia Record I Intake, IV Amount: 700 Hydration: Adequate Estimated blood loss (mL): 10 Urine output (mL): 730 Blood Products used (#): none Blood Pressure: 118/67 SaO2: 99 Pulse Rate: 71 Airway Patency: Patent Respiratory Rate: 8 Temperature: 98.3 F Patient is:: Drowsy and Stable Stable to PACU at:: 10:43
--- NOTE | 2024-04-06 13:25 | EXP.ANES.II ---
[facility] Anesthesia Record Part II Anesthesia Record Part II Discharge Time: 11:13 Destination: Surgical Day Care (OP Surgery) PACU nurse assessment reviewed?: Yes Patient Condition:: Good Anesthesia Complications:: None Swallowing reflex intact?: Yes Airway Patency: Patent Cyanosis?: No Blood Pressure: 133/67 SaO2: 97 Respiratory Rate: 16 Pulse Rate: 70 Temperature: 97.6 F Mental Status: Alert & Oriented Pain level:: 0 Nausea and/or vomitting:: None Intake, IV Amount: 0 Hydration: Adequate
[2024-04-06 13:26] VITALS: BP 133/67; PULSE 70; RESP 16; TEMP 36.4; O2SAT 97
== END 2024-04-05 11:45 | disposition home or self-care (01) ==
PROVIDERS: PCP Family Medicine; Visit Provider Surgery
PROC: (CPT 45100; principal; 2024-04-05 09:15)
DX: C21.1 Malignant neoplasm of anal canal (principal)
CPT/HCPCS: 45100; 96374; J3010; J7120

== ENCOUNTER 2024-04-12 11:58 | Outpatient (CLI) | payer MEDICARE, OTHER, SELFPAY ==
[2024-04-12 12:15] LABS: Basophils # 0.1 K/mm3 (0-0.2); Basophils % 0.7 % (0.1-2.0); Eosinophils # 0.1 K/mm3 (0.0-0.4); Eosinophils % 1.1 % (0.1-12.0); Hematocrit 41.3 % (37.0-47.0); Hemoglobin 14.2 g/dL (12.2-16.2); Lymphocytes # 1.9 K/mm3 (0.7-4.5); Lymphocytes % 26.1 % (10-50); Mean Corpuscular HGB Conc 34.4 g/dL (31.8-35.4); Mean Corpuscular Hemoglobin 32.7 pg (27.0-31.2); Mean Platelet Volume 7.9 fl (7.4-10.4); Monocytes # 0.5 K/mm3 (0.1-1.0); Monocytes % 7.7 % (1.7-9.3); Neutrophils # 4.5 K/mm3 (1.8-7.8); Neutrophils % 64.4 % (37.0-80.0); Platelet Count 242 K/mm3 (142-424); Red Blood Count 4.35 M/mm3 (4.20-5.40); White Blood Count 7.1 K/mm3 (4.8-10.8)
[2024-04-12 12:21] LABS: Alanine Aminotransferase 21 U/L (12-78); Albumin Level 4.4 g/dl (3.5-5.0); Albumin/Globulin Ratio 2.6 (1.1-1.8); Alkaline Phosphatase 84 U/L (38-126); Anion Gap 12.4 mEq/L (5-15); Aspartate Amino Transferase 38 U/L (14-36); Bilirubin,Total 0.9 mg/dl (0.2-1.3); Blood Urea Nitrogen 9 mg/dl (7-17); Calcium 8.9 mg/dl (8.4-10.2); Carbon Dioxide 28 mmol/L (22.0-30.0); Chloride 100 mmol/L (98-107); Estimated Glomerular Filt Rate 121 ml/min (>60); GFR (African American) 146 ML/MIN (>60); Globulin 1.7 g/dL (1.3-3.2); Glucose 89 mg/dl (74-100); Potassium 4.4 mmoL/L (3.5-5.1); Sodium 136 mmol/L (136-145); Total Protein,Serum 6.1 g/dl (6.3-8.2)
[2024-04-12 14:59] LABS: HIV (1&2) Antibody Rapid NONREACTIVE (NONREACTIVE)
== END 2024-04-12 23:59 | disposition home or self-care (01) ==
LOC: LAB 11:59
PROVIDERS: PCP Family Medicine; Visit Provider Internal Medicine Medical Oncology
DX: C21.0 Malignant neoplasm of anus, unspecified (principal)
CPT/HCPCS: 36415; 80053; 85025; 87389

== ENCOUNTER 2024-04-17 08:35 | Outpatient (CLI) | payer MEDICARE, OTHER, SELFPAY ==
--- NOTE | 2024-04-17 08:35 | CT_ITS ---
FINAL REPORT TECHNIQUE: Axial CT images of the abdomen were obtained with IV and oral contrast. Coronal reformatted images were also obtained. This study was performed with techniques to keep radiation doses as low as reasonably achievable (ALARA). Individualized dose reduction techniques using automated exposure control or adjustment of mA and/or kV according to the patient''s size were employed. CLINICAL HISTORY: hx anal cancer FINDINGS: There is a 4 mm low-attenuation focus in the posterior segment of the left hepatic lobe which is nonspecific, favor a small cyst. There are 2 small splenic masses which are nonspecific, could represent cysts or hemangiomas. Moderate vascular calcification is identified.. The pancreas appears normal. There is no evidence of renal mass or hydronephrosis. There is no evidence of adenopathy. No abnormal fluid collection is seen. No localized inflammatory processes identified. IMPRESSION: Hepatic and splenic masses, favor benign. If indicated, follow-up CT in 6 months could evaluate for stability. Reviewed, Interpreted and Dictated by Elder Shukla III, MD Transcribed by Kim Hernandez Authenticated and [facility]
--- NOTE | 2024-04-17 08:35 | CT_ITS ---
FINAL REPORT TECHNIQUE: After the administration of intravenous contrast, axial images through the chest were performed by computed tomography.This study was performed with techniques to keep radiation doses as low as reasonably achievable, (ALARA). Individualized dose reduction techniques using automated exposure control or adjustment of mA and/or kV according to the patient''s size were employed. CLINICAL HISTORY: hx anal cancer COMPARISON: 05/20/2023 FINDINGS: There is no axillary adenopathy. There are small mediastinal nodes without evidence of adenopathy. The heart size is normal. There is no pericardial or pleural effusion. Mild scarring is identified. There are several calcified granulomas. No suspicious infiltrate or nodule identified. IMPRESSION: No acute process. Reviewed, Interpreted and Dictated by Elder Shukla III, MD Transcribed by Kim Hernandez Authenticated and [facility]
[2024-04-17] MEDS: IOPAMIDOL-370 (76%);100ML BOTTLE 75 ML IV (09:31)
[2024-04-17] MEDS: SODIUM CHLORIDE 0.9% 10ML SYR (RAD ONLY) 10 ML IV (09:31)
[2024-04-17] MEDS: BARIUM SULFATE(READI-CAT2);450ML BOTTLE 450 ML PO (09:31)
== END 2024-04-17 23:59 | disposition home or self-care (01) ==
LOC: RAD 08:35
PROVIDERS: PCP Family Medicine; Visit Provider Internal Medicine Medical Oncology
DX: C21.0 Malignant neoplasm of anus, unspecified (principal)
CPT/HCPCS: 71260; 74160; Q9967

== ENCOUNTER 2024-05-29 11:27 | Outpatient (CLI) | payer MEDICARE, OTHER, SELFPAY ==
[2024-05-29 11:37] VITALS: BMI 16.7
[2024-05-29 11:48] LABS: Basophils # 0.1 K/mm3 (0-0.2); Basophils % 0.8 % (0.1-2.0); Eosinophils # 0.1 K/mm3 (0.0-0.4); Eosinophils % 1.3 % (0.1-12.0); Hematocrit 41.2 % (37.0-47.0); Hemoglobin 13.9 g/dL (12.2-16.2); Lymphocytes % 26.6 % (10-50); Mean Corpuscular HGB Conc 33.8 g/dL (31.8-35.4); Mean Corpuscular Hemoglobin 32.7 pg (27.0-31.2); Mean Corpuscular Volume 96.8 fl (81-99); Mean Platelet Volume 8.1 fl (7.4-10.4); Monocytes # 0.5 K/mm3 (0.1-1.0); Monocytes % 6.8 % (1.7-9.3); Neutrophils # 4.9 K/mm3 (1.8-7.8); Neutrophils % 64.5 % (37.0-80.0); Platelet Count 207 K/mm3 (142-424); Red Blood Count 4.26 M/mm3 (4.20-5.40); Red Cell Distribution Width 13.4 % (11.5-17.5); White Blood Count 7.7 K/mm3 (4.8-10.8)
[2024-05-29 12:06] LABS: Alanine Aminotransferase 21 U/L (12-78); Albumin Level 4.2 g/dl (3.5-5.0); Albumin/Globulin Ratio 2.5 (1.1-1.8); Alkaline Phosphatase 96 U/L (38-126); Anion Gap 10.9 mEq/L (5-15); Aspartate Amino Transferase 37 U/L (14-36); Bilirubin,Total 0.8 mg/dl (0.2-1.3); Blood Urea Nitrogen 10 mg/dl (7-17); Calcium 9.1 mg/dl (8.4-10.2); Carbon Dioxide 26 mmol/L (22.0-30.0); Chloride 102 mmol/L (98-107); Creatinine Clearance Estimated 37 mL/min (50-200); Estimated Glomerular Filt Rate 70 ml/min (>60); GFR (African American) 85 ML/MIN (>60); Globulin 1.7 g/dL (1.3-3.2); Glucose 93 mg/dl (74-100); Potassium 3.9 mmoL/L (3.5-5.1); Sodium 135 mmol/L (136-145); Total Protein,Serum 5.9 g/dl (6.3-8.2)
[2024-05-29] MEDS: DEXAMETHASONE 4MG TABLET 12 MG PO (12:20)
[2024-05-29] MEDS: mitoMYcin 20MG/40ML VIAL 15 MG IV (12:44)
[2024-05-29 12:50] VITALS: BP 108/68; PULSE 65; RESP 18; TEMP 37.3; O2SAT 100
[2024-05-29] MEDS: SODIUM CHLORIDE 0.9% 100ML BAG 100 ML IV (13:00)
[2024-05-29 13:12] VITALS: BP 112/62; PULSE 60; RESP 18; TEMP 37.1; O2SAT 100
--- NOTE | 2024-05-30 15:58 | DIET.NUTRFU ---
Contacted patient for chemo tx, she reports some nausea but still good appetite. Medication for nausea is effective. Wt stable, chart reviewed. Provided contact information if further assistance is needed
== END 2024-05-29 13:15 | disposition home or self-care (01) ==
LOC: INF 11:28
PROVIDERS: PCP Family Medicine; Visit Provider Internal Medicine Medical Oncology
DX: C21.0 Malignant neoplasm of anus, unspecified (principal)
CPT/HCPCS: 80053; 83735; 85025; 96409; J8540; J9280

== ENCOUNTER 2024-06-26 11:11 | Outpatient (CLI) | payer MEDICARE, OTHER, SELFPAY ==
[2024-06-26 11:17] VITALS: BMI 26.9
[2024-06-26 11:30] LABS: Basophils % 0.2 % (0.1-2.0); Eosinophils % 0.6 % (0.1-12.0); Hematocrit 32.3 % (37.0-47.0); Hemoglobin 11.1 g/dL (12.2-16.2); Lymphocytes # 0.7 K/mm3 (0.7-4.5); Lymphocytes % 13.8 % (10-50); Mean Corpuscular HGB Conc 34.4 g/dL (31.8-35.4); Mean Corpuscular Hemoglobin 32.4 pg (27.0-31.2); Mean Corpuscular Volume 94.2 fl (81-99); Mean Platelet Volume 9.2 fl (7.4-10.4); Monocytes # 0.5 K/mm3 (0.1-1.0); Monocytes % 11.3 % (1.7-9.3); Neutrophils # 3.5 K/mm3 (1.8-7.8); Neutrophils % 73.5 % (37.0-80.0); Platelet Count 133 K/mm3 (142-424); Red Blood Count 3.43 M/mm3 (4.20-5.40); Red Cell Distribution Width 14.1 % (11.5-17.5); White Blood Count 4.7 K/mm3 (4.8-10.8)
[2024-06-26 11:42] LABS: Albumin Level 3.6 g/dl (3.5-5.0); Chloride 101 mmol/L (98-107); Potassium 3.1 mmoL/L (3.5-5.1); Sodium 135 mmol/L (136-145)
[2024-06-26 11:44] LABS: Alanine Aminotransferase 20 U/L (12-78); Aspartate Amino Transferase 30 U/L (14-36); Blood Urea Nitrogen 10 mg/dl (7-17); Creatinine Clearance Estimated 59 mL/min (50-200); Estimated Glomerular Filt Rate 121 ml/min (>60); GFR (African American) 146 ML/MIN (>60)
[2024-06-26 11:45] LABS: Albumin/Globulin Ratio 1.9 (1.1-1.8); Alkaline Phosphatase 92 U/L (38-126); Anion Gap 6.1 mEq/L (5-15); Bilirubin,Total 0.3 mg/dl (0.2-1.3); Calcium 8.6 mg/dl (8.4-10.2); Carbon Dioxide 31 mmol/L (22.0-30.0); Globulin 1.9 g/dL (1.3-3.2); Glucose 103 mg/dl (74-100); Magnesium 1.8 mg/dl (1.6-2.3); Total Protein,Serum 5.5 g/dl (6.3-8.2)
[2024-06-26] MEDS: DEXAMETHASONE 4MG TABLET 12 MG PO (12:20)
[2024-06-26] MEDS: SODIUM CHLORIDE 0.9% 100ML BAG 100 ML IV (12:32)
[2024-06-26] MEDS: mitoMYcin 20MG/40ML VIAL 15 MG IV (12:53)
[2024-06-26 13:00] VITALS: BP 114/60; PULSE 71; RESP 18; TEMP 36.4; O2SAT 98
[2024-06-26 13:22] VITALS: BP 121/72; PULSE 75
== END 2024-06-26 13:35 | disposition home or self-care (01) ==
PROVIDERS: PCP Family Medicine; Visit Provider Internal Medicine Medical Oncology
DX: Z51.11 Encounter for antineoplastic chemotherapy (principal); C21.0 Malignant neoplasm of anus, unspecified
CPT/HCPCS: 80053; 83735; 85025; 96374; 96409; J8540; J9280

== ENCOUNTER 2024-08-10 12:28 | Outpatient (CLI) | payer MEDICARE, OTHER, SELFPAY ==
[2024-08-10 13:20] LABS: Basophils % 0.3 % (0.1-2.0); Lymphocytes # 0.8 K/mm3 (0.7-4.5); Lymphocytes % 26.7 % (10-50); Mean Corpuscular HGB Conc 33.3 g/dL (31.8-35.4); Mean Corpuscular Hemoglobin 33.4 pg (27.0-31.2); Mean Corpuscular Volume 100.3 fl (81-99); Monocytes # 0.5 K/mm3 (0.1-1.0); Monocytes % 14.6 % (1.7-9.3); Neutrophils # 1.8 K/mm3 (1.8-7.8); Neutrophils % 56.8 % (37.0-80.0); Platelet Count 176 K/mm3 (142-424); Red Blood Count 3.29 M/mm3 (4.20-5.40); Red Cell Distribution Width 17.4 % (11.5-17.5); White Blood Count 3.2 K/mm3 (4.8-10.8)
[2024-08-10 13:58] LABS: Alanine Aminotransferase 18 U/L (12-78); Albumin Level 3.4 g/dl (3.5-5.0); Albumin/Globulin Ratio 2.1 (1.1-1.8); Alkaline Phosphatase 94 U/L (38-126); Anion Gap 5.3 mEq/L (5-15); Aspartate Amino Transferase 29 U/L (14-36); Bilirubin,Total 0.4 mg/dl (0.2-1.3); Blood Urea Nitrogen 11 mg/dl (7-17); Calcium 8.7 mg/dl (8.4-10.2); Carbon Dioxide 32 mmol/L (22.0-30.0); Chloride 104 mmol/L (98-107); Estimated Glomerular Filt Rate 121 ml/min (>60); GFR (African American) 146 ML/MIN (>60); Globulin 1.6 g/dL (1.3-3.2); Glucose 83 mg/dl (74-100); Potassium 3.3 mmoL/L (3.5-5.1); Sodium 138 mmol/L (136-145)
== END 2024-08-10 23:59 | disposition home or self-care (01) ==
LOC: LAB 12:29
PROVIDERS: PCP Family Medicine; Visit Provider Internal Medicine Medical Oncology
DX: C21.0 Malignant neoplasm of anus, unspecified (principal)
CPT/HCPCS: 36415; 80053; 85025

== ENCOUNTER 2024-08-23 10:07 | Outpatient (CLI) | payer MEDICARE, OTHER, SELFPAY ==
--- NOTE | 2024-08-23 10:16 | CA_ITS ---
FINAL REPORT TECHNIQUE: Bilateral lower extremity venous duplex was performed with augmentation and compression. CLINICAL HISTORY: Swelling bilateral LE x 6 days, recently finished up chemo and radiation for anal cancer, smoker COMPARISON: None FINDINGS: Proper flow is seen throughout the deep venous systems bilaterally. There is no evidence of deep venous thrombosis. IMPRESSION: No evidence of deep venous thrombosis in the bilateral lower extremities. Reviewed, Interpreted and Dictated by Dash Hernandez MD Transcribed by Thuy Alves Authenticated and . [facility]
[2024-08-23 11:21] LABS: Basophils % 0.4 % (0.1-2.0); Eosinophils % 0.5 % (0.1-12.0); Hematocrit 38.6 % (37.0-47.0); Hemoglobin 12.7 g/dL (12.2-16.2); Lymphocytes # 0.8 K/mm3 (0.7-4.5); Lymphocytes % 13.7 % (10-50); Mean Corpuscular HGB Conc 32.9 g/dL (31.8-35.4); Mean Corpuscular Hemoglobin 33.6 pg (27.0-31.2); Mean Corpuscular Volume 102.1 fl (81-99); Mean Platelet Volume 9.7 fl (7.4-10.4); Monocytes # 0.6 K/mm3 (0.1-1.0); Neutrophils # 4.1 K/mm3 (1.8-7.8); Platelet Count 202 K/mm3 (142-424); Red Blood Count 3.78 M/mm3 (4.20-5.40); White Blood Count 5.5 K/mm3 (4.8-10.8)
[2024-08-23 14:54] LABS: Albumin Level 4.5 g/dl (3.5-5.0); Chloride 101 mmol/L (98-107); Potassium 3.9 mmoL/L (3.5-5.1); Sodium 136 mmol/L (136-145)
[2024-08-23 14:56] LABS: Blood Urea Nitrogen 10 mg/dl (7-17); Estimated Glomerular Filt Rate 121 ml/min (>60); GFR (African American) 146 ML/MIN (>60)
[2024-08-23 14:57] LABS: Alanine Aminotransferase 25 U/L (12-78); Albumin/Globulin Ratio 2.8 (1.1-1.8); Alkaline Phosphatase 94 U/L (38-126); Anion Gap 8.9 mEq/L (5-15); Aspartate Amino Transferase 38 U/L (14-36); Bilirubin,Total 0.9 mg/dl (0.2-1.3); Calcium 8.6 mg/dl (8.4-10.2); Carbon Dioxide 30 mmol/L (22.0-30.0); Globulin 1.6 g/dL (1.3-3.2); Glucose 90 mg/dl (74-100); Total Protein,Serum 6.1 g/dl (6.3-8.2)
== END 2024-08-23 23:59 | disposition home or self-care (01) ==
LOC: RT 10:07
PROVIDERS: PCP Family Medicine; Visit Provider Internal Medicine Medical Oncology
DX: R22.43 Localized swelling, mass and lump, lower limb, bilateral (principal); D69.6 Thrombocytopenia, unspecified; E78.2 Mixed hyperlipidemia; C21.0 Malignant neoplasm of anus, unspecified
CPT/HCPCS: 36415; 80053; 85025; 93970

== ENCOUNTER 2024-09-03 13:47 | Emergency (ER) | payer MEDICARE, OTHER, SELFPAY ==
[2024-09-03] VITALS (11 sets, daily range): BP systolic 99–161; BP diastolic 68–90; PULSE 65–76; RESP 16–18; TEMP 36.6–36.8; O2SAT 92–100; BMI 18.2
--- NOTE | 2024-09-03 14:38 | ED_ITS ---
<Statement entered by Zeyad Lee MD - 09/03/24 21:51> I was consulted by the CARMELA, and we discussed the complexity of the problems being addressed. I approved the treatment and management plan for this patient's care in the emergency department, thus performing a substantive portion of the medical decision making. Zeyad Lee MD Discharge Plan Disposition Patient Disposition: Home, Self-Care Condition: Good Chief Complaint: PAIN Prescriptions Prescriptions: No Action vitamin B complex [B Complex-Vitamin B12] tablet 1 tab PO DAILY albuterol sulfate [Ventolin HFA] 90 mcg/actuation HFA aerosol inhaler 2 inh inhalation Q6H PRN (Reason: shortness of breath or wheezing) 90 Days Qty: 18 3RF ipratropium-albuterol 0.5 mg-3 mg(2.5 mg base)/3 mL solution for nebulization inhalation fluticasone propion-salmeterol 115-21 mcg/actuation HFA aerosol inhaler inhalation multivitamin tablet 1 tab PO QAM potassium chloride 20 mEq tablet,ER particles/crystals 20 meq PO DAILY furosemide 20 mg tablet 20 mg PO DAILY Qty: 90 1RF lisinopril 5 mg tablet 2.5 mg PO DAILY Qty: 60 5RF bisoprolol fumarate 5 mg tablet 2.5 mg PO DAILY Qty: 60 5RF atorvastatin 40 mg tablet 40 mg PO DAILY 90 Days Qty: 90 3RF prochlorperazine maleate [Compazine] 10 mg tablet 10 mg PO Q6H PRN (Reason: nausea and vomiting) Qty: 30 1RF ondansetron 8 mg tablet,disintegrating 8 mg PO Q8H Qty: 30 1RF calcium carbonate-vitamin D3 600 mg-5 mcg (200 unit) Tablet 1 tab PO DAILY hydrocodone-acetaminophen 5-325 mg tablet 1 tab PO Q6H PRN (Reason: post-op pain) Qty: 13 0RF Referrals Follow up/Referrals: Danelle Clifton MD [Primary Care Provider] - See instructions Activity Restrictions/Add. Instructions Additional Instructions/Restrictions: Return to the emergency department with any worsening signs or symptoms, I recommend rest ice elevation and any other anti-inflammatory medications as needed for pain. Follow-up with all your other doctors regarding your cancer treatment. Clinical Impressions Clinical Impression: Acute pain of right hip Instructions Patient Instructions: DI for Hip Pain Print Language Print Language: Yi Discharge ED Provider: Zeyad Lee General Adult HPI General Chief complaint: PAIN Stated complaint: R. Hip pain Time Seen by Provider: 09/03/24 14:38 Mode of Arrival: Ambulatory Source of Information: Patient Description of Symptoms (Recalled from ER Triage Doc. by RN): Pt presents for evaluation of right hip pain x 4 days, denies any injuries. Pt receives chemo/radiation for lower colon cancer. History of Present Illness HPI narrative: 73-year-old female presents emergency department with right sided pelvic/hip pain, patient endorses no trauma per history, no bending lifting or twisting incident, no fall, patient states that she awoke with this pain approximately 4 days ago, she has been would ambulate with this pain, unassisted but is somewhat pain limited range of motion. Patient denies any fever chills chest pain shortness of breath nausea vomiting, does have some change in bowel habits with constipation diarrhea, does have ongoing colon cancer with chemotherapy and radiation treatment. Denies any nausea or vomiting, denies any urinary type symptomatology, patient is current everyday smoker, patient has tried stretching, as well as ibuprofen/Tylenol and other [id number] pain relievers with little to no relief of her symptomatology. Patient denies any upper or lower extremity weakness, denies any numbness or tingling, denies any back pain, denies any radicular type symptomatology, denies any urinary bladder or bowel dysfunction. Other past medical history consistent with COPD, previous right hip/femoral surgery, with what sounds like intramedullary iraj, CAD status post stent placement, hypertension, patient utilizes occasional alcohol (2 beers) nightly, denies any other drug use, initial triage vitals unremarkable. Onset (ago): day(s) Related Data Home Medications ?Medication ?Instructions ?Recorded ?Confirmed multivitamin 1 tab PO QAM Supplement 08/02/17 08/23/24 vitamin B complex (B 1 tab PO DAILY 07/19/18 08/23/24 Complex-Vitamin B12 tablet) potassium chloride 20 mEq 20 meq PO DAILY electrolytes 01/05/23 08/23/24 tablet,extended release(part/cryst) calcium 600 mg (as 1 tab PO DAILY 03/12/24 08/23/24 carbonate)-vitamin D3 5 mcg (200 unit) tablet ipratropium 0.5 mg-albuterol 3 mg ml inhalation 01/14/25 03/13/25 (2.5 mg base)/3 mL nebulization soln fluticasone propionate 115 inhalation 08/07/24 08/23/24 mcg-salmeterol 21 mcg/actuation HFA inhaler Previous Rx's ?Medication ?Instructions ?Recorded albuterol sulfate 90 mcg/actuation 2 inh inhalation Q6H PRN shortness 06/14/23 aerosol inhaler (Ventolin HFA) of breath or wheezing 90 days #18 grams furosemide 20 mg tablet 20 mg PO DAILY edema #90 tabs 03/21/24 hydrocodone 5 mg-acetaminophen 325 1 tab PO Q6H PRN post-op pain #13 04/05/24 mg tablet tabs bisoprolol fumarate 5 mg tablet 2.5 mg (1/2 x 5 mg) PO DAILY blood 04/09/24 pressure #60 tabs lisinopril 5 mg tablet 2.5 mg (1/2 x 5 mg) PO DAILY #60 04/09/24 tabs atorvastatin 40 mg tablet 40 mg PO DAILY 90 days #90 tabs 04/10/24 ondansetron 8 mg disintegrating 8 mg PO Q8H nausea and vomiting 05/28/24 tablet #30 tabs prochlorperazine maleate 10 mg 10 mg PO Q6H PRN nausea and 05/28/24 tablet (Compazine) vomiting #30 tabs Allergies Allergy/AdvReac Type Severity Reaction Status Date / Time amoxicillin (AMOXICILLIN) Allergy Intermediate I-HIVES Verified 08/23/24 11:40 Sulfa (Sulfonamide Allergy Unknown I-HIVES Verified 08/23/24 11:40 Antibiotics) (SULFA (SULFONAMIDE ANTIBIOTICS)) [facility] Disclaimer: The information contained in this section may have been updated after the patient was seen, as this information can be updated by other users. Medical History History of femur fracture COPD mixed type Abnormal nuclear cardiac imaging test Smoking greater than 30 pack years Dyspnea on exertion Acute respiratory failure with hypoxia Acute right otitis media Viral URI with cough Perforated left tympanic membrane on examination Recurrent otitis media of right ear Right leg pain Hyperkalemia Diastolic dysfunction Fall Dyspnea Typical angina Viral infection Hypokalemia Anemia Alcohol use disorder HHD (hypertensive heart disease) CAD (coronary artery disease) Smoker Hyperlipidemia Hypertensive disorder Coronary arteriosclerosis Surgical History History of surgery on lower extremity History of colonoscopy History of hysterectomy Hx of myringotomy History of tympanoplasty of left ear History of left mastoidectomy Hx of tonsillectomy Stented coronary artery Family History Other Family history non-contributory Social History Smoking Status: Never smoker alcohol intake: never substance use type: denies use current occupational status: retired Travel in the last 8 weeks: None household members: spouse housing: house current occupational exposures/hazards: No caffeine: Yes Other Medical History Have you received the Flu Vaccine for this season: No Have you received the Pneumonia Vaccine: Yes ROS Obtained: Yes All systems reviewed & no additional complaints except as documented Physical Exam General General appearance: alert and in no apparent distress Head Head exam: atraumatic and normocephalic Eye Eye exam: Present PERRL and EOMI ENT ENT exam: Present mucous membranes moist Neck Neck exam: Present normal inspection Chest Chest inspection: Present normal inspection and symmetric chest wall rise Respiratory Respiratory exam: Present normal lung sounds bilaterally; Absent respiratory distress Cardiovascular Cardiovascular exam: Present regular rate and normal rhythm Abdominal Exam Abdominal exam: Present soft; Absent tenderness Extremities Exam Extremities exam: Present normal inspection, full ROM, tenderness and other (Patient has some mild pain to palpation to the sacroiliac joint/right sided hip joint, patient has some pain limited range of motion, but moves extremity to command, good abduction, adduction, flexion extension and internal and external hip rotation is noted at the bedside, otherwise neurovascular i) Back Exam Back exam: Present full ROM; Absent tenderness, paraspinal tenderness, vertebral tenderness, sciatic notch tenderness (R), sciatic notch tenderness (L), straight leg raise (R) or straight leg raise (L) Neurological Exam Neurological exam: Present alert and oriented X3 Psychiatric Psychiatric exam: Present normal affect Skin Skin exam: Present warm and dry Medical Decision Making Medical Records Medical records reviewed: Yes I reviewed the patient's medical records. Screening: Per USPSTF and CDC recommendations, given the prevalence of disease in our region, it is our hospital?s policy to screen for HIV and viral Hepatitis for all patients aged 18 and over and those with ongoing risk factors. Keny Inquiry Pt receiving controlled substance: No Keny was queried for this patient: No Vital Signs: 09/03/24 14:10 09/03/24 14:48 09/03/24 15:31 Temperature 98.3 F Temperature Source Oral Pulse Rate 70 70 Pulse Rate [Right] 76 Respiratory Rate 18 Blood Pressure 144/76 H 99/69 L Blood Pressure [Right Arm] 140/74 Blood Pressure Mean Blood Pressure Mean [Right Arm] 96 Blood Pressure Source [Right Arm] Automatic Cuff Blood Pressure Position [Right Arm] Sitting 02 Sat by Pulse Oximetry 100 98 96 Oxygen Delivery Method Room Air Room Air Room Air 09/03/24 15:45 09/03/24 16:00 09/03/24 16:30 Temperature Temperature Source Pulse Rate 70 67 66 Pulse Rate [Right] Respiratory Rate Blood Pressure 116/87 123/68 156/78 H Blood Pressure [Right Arm] Blood Pressure Mean Blood Pressure Mean [Right Arm] Blood Pressure Source [Right Arm] Blood Pressure Position [Right Arm] 02 Sat by Pulse Oximetry 95 96 96 Oxygen Delivery Method Room Air Room Air Room Air 09/03/24 16:46 09/03/24 17:00 09/03/24 17:30 Temperature Temperature Source Pulse Rate 66 65 69 Pulse Rate [Right] Respiratory Rate Blood Pressure 160/81 H 145/71 H 161/90 H Blood Pressure [Right Arm] Blood Pressure Mean 95 113 Blood Pressure Mean [Right Arm] Blood Pressure Source [Right Arm] Blood Pressure Position [Right Arm] 02 Sat by Pulse Oximetry 96 95 97 Oxygen Delivery Method Room Air 09/03/24 18:01 Temperature Temperature Source Pulse Rate 67 Pulse Rate [Right] Respiratory Rate Blood Pressure 112/82 Blood Pressure [Right Arm] Blood Pressure Mean 95 Blood Pressure Mean [Right Arm] Blood Pressure Source [Right Arm] Blood Pressure Position [Right Arm] 02 Sat by Pulse Oximetry 92 L Oxygen Delivery Method Lab Data Lab Results 09/03/24 15:10: Sodium 137, Potassium 4.1, Chloride 104, Carbon Dioxide 31 H, Anion Gap 6.1, BUN 10, Creatinine 0.40 L, Estimated Creat Clear 36, Estimated GFR 156, Est GFR ( Amer) 189, Glucose 91, Calcium 8.7, Total Bilirubin 0.7, AST 37 H, ALT 21, Alkaline Phosphatase 71, Total Protein 5.6 L, Albumin 3.9, Globulin 1.7, Albumin/Globulin Ratio 2.3 H 09/03/24 15:15: WBC 3.9 L, RBC 3.38 L, Hgb 11.7 L, Hct 35.1 L, MCV 103.8 H, MCH 34.6 H, MCHC 33.3, RDW 14.0, Plt Count 163, MPV 10.2, Neut % (Auto) 62.6, Lymph % (Auto) 20.7, Davidson % (Auto) 15.3 H, Eos % (Auto) 0.8, Baso % (Auto) 0.3, Neut # (Auto) 2.5, Lymph # (Auto) 0.8, Davidson # (Auto) 0.6, Eos # (Auto) 0.0, Baso # (Auto) 0.0 09/03/24 15:15 09/03/24 15:10 Orders (Tests/Meds): ED MEDICATIONS Generic Name Dose Route Start Last Admin Trade Name Freq PRN Reason Stop Dose Admin Sodium Chloride 10 ml 09/03/24 16:16 09/03/24 16:17 Sodium Chloride 0.9% 10ml Syr (Rad Only) IV 10/03/24 16:15 10 ml NEEDED PRN Administration Maintain IV Site Discontinued Medications Generic Name Dose Route Start Last Admin Trade Name Freq PRN Reason Stop Dose Admin Iopamidol 75 ml 09/03/24 16:16 09/03/24 16:17 Iopamidol-370 (76%);100ml Bottle IV 09/03/24 16:17 75 ml ONCE ONE Administration ORDERS Category Date Time Status CT abdomen pelvis w con Stat Cat Scan 09/03/24 14:[address] bony pelvis Stat Cat Scan 09/03/24 14:50 Completed Complete Blood Count Auto Diff Stat Lab 09/03/24 15:15 Completed Comprehensive Metabolic Panel Stat Lab 09/03/24 15:10 Completed Medical Decision Narrative: 73-year-old female presents emergency department with right hip pain, differential diagnose include not limited to, intertrochanteric bursitis, static disease, osteoporotic pathological compression fracture, hip strain/sprain, piriformis syndrome, acute sciatica. I discussed his case with attending physician Rosa Cervantes Will obtain basic laboratory studies, CT abdomen pelvis with contrast, CT bony pelvis without contrast, I did offer patient analgesia here in the emergency department, she denied/refused at this time. CBC is notable for neutropenia at 3.9, erythrocytopenia 3.38, hemoglobin is decreased 11.7, hematocrit 35.1, MCV is elevated at 103.8 studies CMP unremarkable I reviewed the patient's CT abdomen pelvis with contrast along the corresponding radiologic report findings which can be seen with enteritis, stable splenic and hepatic hypodensities from prior comparison, possible small cyst emanating from the anterior proximal pancreatic body, consider MRI cholangiography further assessment, distended urinary bladder which can be seen in cystitis/outlet obstruction/retention especially in the elderly. I reviewed the patient's CT bony pelvis that contrast on the corresponding radiologic report, no visualized fracture, demineralized bones may make fractures occult, consider MRI if there is considerable further clinical sedation. Discussed results with the patient at the bedside, patient agreed with current treatment plan/discharge plan, follow-up with all of her providers as directed. Recommend rest ice ibuprofen Tylenol as needed for symptomatic relief, as well as other p.o. narcotic medication patient has at home, gave strict ED return precautions. Patient voiced understand agree with current treatment plan/discharge plan. Critical Care Critical Care Time Critical Care Time: No
--- NOTE | 2024-09-03 14:50 | CT_ITS ---
PROCEDURE INFORMATION: Exam: CT Pelvis Without Contrast, Skeleton Exam date and time: 09/03/2024 4:13 PM Age: 73 years old Clinical indication: Hip pain; Right hip; Additional info: Right hip/ sacroiliac pain TECHNIQUE: Imaging protocol: Computed tomography of the pelvis without contrast. Exam focused on the skeleton. Radiation optimization: All CT scans at this facility use at least one of these dose optimization techniques: automated exposure control; mA and/or kV adjustment per patient size (includes targeted exams where dose is matched to clinical indication); or iterative reconstruction. COMPARISON: CT BONY PELVIS 09/03/2024 4:13 PM FINDINGS: Intestine: Moderate colonic stool burden. Fluid distended pelvic loops of small bowel. Vasculature: Heavy atherosclerotic disease. Urinary bladder: Distended urinary bladder. Bones/joints: Demineralized bones. Benign sclerotic lesion of the left iliac bone. Diffuse degenerative change of the visualized osseous structures. Intramedullary iraj and screw fixation of the right proximal femur, incompletely visualized. Grade 1 anterolisthesis of L4 on L5. Moderate bilateral foraminal stenosis at L5-S1. Soft tissues: Unremarkable. IMPRESSION: No visualized fracture. Demineralized bones may make fractures occult. Consider MRI if there is considerable further clinical suspicion.
--- NOTE | 2024-09-03 14:50 | CT_ITS ---
PROCEDURE INFORMATION: Exam: CT Abdomen And Pelvis With Contrast Exam date and time: 09/03/2024 4:16 PM Age: 73 years old Clinical indication: Abdominal pain; Additional info: Abd pain, HX of colon CA TECHNIQUE: Imaging protocol: Computed tomography of the abdomen and pelvis with contrast. Radiation optimization: All CT scans at this facility use at least one of these dose optimization techniques: automated exposure control; mA and/or kV adjustment per patient size (includes targeted exams where dose is matched to clinical indication); or iterative reconstruction. Contrast material: ISOVUE; Contrast volume: 75 ml; Contrast route: IV; COMPARISON: CT BONY PELVIS 09/03/2024 4:13 PM FINDINGS: Lungs: Basilar scarring/atelectasis. Heart: Base of heart is unremarkable as visualized. Liver: Stable multiloculated left hepatic cyst, stable. Gallbladder and biliary ducts: Normal. No calcified stones. No ductal dilation. Pancreas: Possible stable cystic entity emanating from the anterior proximal pancreatic body (series 3, image 32). Spleen: Splenic granuloma. Ill-defined splenic hypodensity, stable. Adrenal glands: Normal. No mass. Kidneys and ureters: Normal. No hydronephrosis. Stomach and bowel: Moderate colonic stool burden. A few fluid distended loops of small bowel without reaching criteria for obstruction are noted in the lower pelvis. Appendix: No evidence of appendicitis. Intraperitoneal space: Unremarkable. No free air. No significant fluid collection. Vasculature: Peripheral arterial vascular disease. Near-complete focal occlusion of the left common iliac artery, mid aspect. Moderate to severe stenosis of the celiac artery ostia. Multiple pelvic phleboliths. Lymph nodes: Unremarkable. No enlarged lymph nodes. Urinary bladder: Urinary bladder is distended. Reproductive: Status post hysterectomy. Bones/joints: Demineralized bones. Diffuse degenerative change of the visualized osseous structures. Partially evaluated intramedullary iraj and screw fixation of the right femur. Soft tissues: Unremarkable. IMPRESSION: 1. Findings which can be seen in enteritis. Correlate clinically. 2. Stable splenic and hepatic hypodensities from prior comparison. 3. Possible small cyst emanating from the anterior proximal pancreatic body. Consider magnetic resonance cholangiopancreatography for further assessment. 4. Distended urinary bladder which can be seen in cystitis/outlet obstruction/retention especially in the elderly. Correlate clinically.
[2024-09-03 15:21] LABS: Basophils % 0.3 % (0.1-2.0); Eosinophils % 0.8 % (0.1-12.0); Hematocrit 35.1 % (37.0-47.0); Hemoglobin 11.7 g/dL (12.2-16.2); Lymphocytes # 0.8 K/mm3 (0.7-4.5); Lymphocytes % 20.7 % (10-50); Mean Corpuscular HGB Conc 33.3 g/dL (31.8-35.4); Mean Corpuscular Hemoglobin 34.6 pg (27.0-31.2); Mean Corpuscular Volume 103.8 fl (81-99); Mean Platelet Volume 10.2 fl (7.4-10.4); Monocytes # 0.6 K/mm3 (0.1-1.0); Monocytes % 15.3 % (1.7-9.3); Neutrophils # 2.5 K/mm3 (1.8-7.8); Neutrophils % 62.6 % (37.0-80.0); Platelet Count 163 K/mm3 (142-424); Red Blood Count 3.38 M/mm3 (4.20-5.40); White Blood Count 3.9 K/mm3 (4.8-10.8)
[2024-09-03 15:50] LABS: Albumin Level 3.9 g/dl (3.5-5.0); Chloride 104 mmol/L (98-107); Potassium 4.1 mmoL/L (3.5-5.1); Sodium 137 mmol/L (136-145)
[2024-09-03 15:53] LABS: Alanine Aminotransferase 21 U/L (12-78); Albumin/Globulin Ratio 2.3 (1.1-1.8); Alkaline Phosphatase 71 U/L (38-126); Anion Gap 6.1 mEq/L (5-15); Aspartate Amino Transferase 37 U/L (14-36); Bilirubin,Total 0.7 mg/dl (0.2-1.3); Blood Urea Nitrogen 10 mg/dl (7-17); Calcium 8.7 mg/dl (8.4-10.2); Carbon Dioxide 31 mmol/L (22.0-30.0); Creatinine Clearance Estimated 36 mL/min (50-200); Estimated Glomerular Filt Rate 156 ml/min (>60); GFR (African American) 189 ML/MIN (>60); Globulin 1.7 g/dL (1.3-3.2); Glucose 91 mg/dl (74-100); Total Protein,Serum 5.6 g/dl (6.3-8.2)
[2024-09-03] MEDS: IOPAMIDOL-370 (76%);100ML BOTTLE 75 ML IV (16:17)
[2024-09-03] MEDS: SODIUM CHLORIDE 0.9% 10ML SYR (RAD ONLY) 10 ML IV (16:17)
--- NOTE | 2024-09-03 17:28 | PC.NURSE ---
I called radiology and s/w Katja, who will check on the status of ct reads. Dr Rosa bloom.
--- NOTE | 2024-09-03 17:40 | PC.NURSE ---
PER radiology [facility] did not like the scans and pushed them over onto [facility], scans have now been sent to [facility] to be read and this has caused a major delay in patient disposition and care. made aware of issue and is resting quietly denies any needs at this time when patient rounding occurred
== END 2024-09-03 18:59 | disposition home or self-care (01) ==
PROVIDERS: Physician Assistant; Emergency Provider Emergency Medicine; PCP Family Medicine
DX: M25.551 Pain in right hip (principal); C21.0 Malignant neoplasm of anus, unspecified
CPT/HCPCS: 72192; 74177; 80053; 85025; 99285; Q9967

== ENCOUNTER 2024-09-25 11:22 | Outpatient (CLI) | payer MEDICARE, OTHER, SELFPAY ==
[2024-09-25] MEDS: SODIUM CHLORIDE 0.9% 10ML SYR (RAD ONLY) 10 ML IV (12:46)
[2024-09-25] MEDS: SODIUM CHLORIDE 0.9% 50ML BAG 20 ML IV (12:46)
[2024-09-25] MEDS: GADOTERIDOL INJ 20ML SYRINGE 9 ML IV (12:46)
--- NOTE | 2024-09-25 13:45 | MR_ITS ---
FINAL REPORT CLINICAL HISTORY: Pancreatic Cyst hx of colon cancer prior ct scan COMPARISON: 08/30/2024 FINDINGS: Multiplanar MR imaging of the abdomen was performed without and with contrast. A T2 hyperintense, T1 hypointense lesion is seen adjacent to the far lateral left lobe of the liver measuring 21 mm. This is best seen on series 12, image 11. It is difficult to determine if this arises from in or adjacent to the liver. Regardless, lesion is stable. No additional liver lesions are identified. Spleen and adrenal glands are without acute abnormality. There is a T2 hyperintense lesion along the anterior margin of the body of the pancreas measuring 11 mm, not significantly changed. Kidneys are unremarkable. Limited evaluation of the GI tract is without acute abnormality. There is no ascites. On MRCP images, the gallbladder is present. Common duct is normal in caliber without filling defect or stricture. A small lesion is seen along the body of the pancreas which appears to communicate with the pancreatic duct. Postcontrast imaging demonstrates no enhancement of the lesion along the left lobe of the liver. There is no enhancement of the small lesion along the anterior pancreas. IMPRESSION: Small cystic lesion along the anterior pancreas which appears to communicate with the pancreatic duct, favor small sidebranch IPMN. Cystic lesion adjacent to and possibly arising from the left hepatic lobe which could represent hepatic cyst. Otherwise, etiology unclear. Reviewed, Interpreted and Dictated by Betty Morocho MD Transcribed by Ananya Middleton Authenticated and [facility]
== END 2024-09-25 23:59 | disposition home or self-care (01) ==
LOC: RAD 11:22
PROVIDERS: PCP Family Medicine; Visit Provider Internal Medicine Medical Oncology
DX: C21.0 Malignant neoplasm of anus, unspecified (principal); M25.551 Pain in right hip
CPT/HCPCS: 74183; 76376; A9576

== ENCOUNTER 2025-01-08 07:51 | Outpatient (CLI) | payer MEDICARE, OTHER, SELFPAY ==
--- OUTSIDE RECORDS SUMMARY | 2024-11-21 10:36 | XMS_ITS | Encounter Summary ---
Author Organization Healthcare Address [address] [place] [address] Care Team Providers Care Eligibility Specialist Name Role Phone Harvinder Clifton MD Primary Care Provider [phone] Reason for Referral * Imaging (Routine) - Closed Specialty Diagnoses / Procedures Referred By Earline caceres Referred To Contact Gastroenterology Diagnoses Gastric polyp Procedures EGD Jermaine Adams MD [address] [address] Phone: tel: fax: Referral ID Status Reason Start Date Expiration Date V isits Requested Visits Authorized [id number] Closed Specialty Services Required 11/19/2024 05/21/2026 1 1 Reason for Visit * Imaging (Routine) - Closed Specialty Diagnoses / Procedures Referred By Earline caceres Referred To Contact Gastroenterology Diagnoses Gastric polyp Procedures EGD Jermaine Adams MD [address] [address] Phone: tel: fax: Referral ID Status Reason Start Date Expiration Date V isits Requested Visits Authorized [id number] Closed Specialty Services Required 11/19/2024 05/21/2026 1 1 Encounter Details Date Type Department Care Team (Late st Contact Info) Description 11/21/2024 10:36 AM EDT - 11/21/2024 11:59 PM EDT Hospital Encounter [facility] [address] [place] [address] Clarice Stoner RN [facility]ULAR [facility] INTERVENTIONAL RADIOLOGY Jermaine Adams MD [address] [facility] [address] [place] [address] Gastric polyp Discharge Disposition: Home or Self Care Social History Tobacco Use Types Packs/Day Years Used Date Smoking Tobacco: Every Day Cigarettes 0.5 54.6 Started: 1970 Passive Smoke Exposure: Past Smokeless Tobacco: Never Alcohol Use Standard Drinks/Week Comments Yes 0 (1 standard drink = 0.6 oz pure alcohol) total 3 beer limit each evening, 2 times a week. PHQ-2 Answer Date Recorded Patient Health Questionnaire-2 Score 0 10/10/2024 Comments No Sex and Gender Information Value Date Recorded Sex Assigned at Not on file Legal Sex Female 6:47 PM EDT Gender Identity Not on file Sexual Orientation Not on file documented as of this encounter Last Filed Vital Signs Vital Sign Reading Time Taken Comments Blood Pressure 121/64 11/21/2024 12:30 PM EDT Pulse 59 11/21/2024 12:30 PM EDT Temperature 36.3 C (97.3 F) 11/21/2024 11:55 AM EDT Respiratory Rate 13 11/21/2024 12:30 PM EDT Oxygen Saturation 100% 11/21/2024 12:30 PM EDT Inhaled Oxygen Concentration - - Weight 45.5 kg (100 lb 5 oz) 11/21/2024 11:05 AM EDT Height 167.6 cm (5' 6 ) 11/21/2024 11:05 AM EDT Body Mass Index 16.19 11/21/2024 11:05 AM EDT documented in this encounter Medications at Time of Discharge atorvastatin (Lipitor) 40 MG tablet Take 1 tablet by mouth every morning. 06/23/2022 bisoprolol (Zebeta) 5 MG tablet Take 1 tablet by mouth every morning. 02/21/2017 ciprofloxacin-de xamethasone (CiproDEX) otic suspension Administer 2 drops into the right ear 2 times a day. cyanocobalamin 100 MCG tablet Take 1 tablet by mouth daily. furosemide (Lasix) 20 MG tablet Take 1 tablet by mouth every morning. 06/30/2022 lisinopril 5 MG tablet Take 1 tablet by mouth every morning. 05/26/2022 Potassium (POTASSIMIN PO) Take 1 tablet by mouth daily. documented as of this encounter Miscellaneous Notes * H&P - Jermaine Adams MD - 11/21/2024 11:30 AM EDT Patient: Rosa Cm Date of : 1950 Attending: No att. 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 PMHx:rectal cancer - planned resection pending 14 point ROS normal except:Pertinent items are noted in HPI Medications reviewed by the physicians and reconciled in the chart. Anticoagulation/ASA: none Last dose: not applicable Allergies: Reviewed, see allergy history Social history: Reviewed and non contributory Family history: Reviewed and non contributory Physical Exam: General Appearance: Patient in no distress. Alert, awake and oriented x 3 Eyes: Anicteric, EOMI Neck: Neck supple Lungs: Lungs clear to auscultation, no wheezing, rales, rhonchi Heart: Regular rate and rhythm Abdomen: Abdomen soft, non-tender. Bowel sounds normal. No rebound or guarding. Labs: Inpression/indication for procedure: Proceed with EGD evaluation to follow up on previous abnormal gastric biopsy findings. Jermaine Adams MD * Thiago Crook RN - 11/21/2024 10:52 AM EDT Images from the original note were not included. [id number] Endoscopy Unit: Caring for Yourself after an Esophogastroduodenoscopy (EGD) What precautions do I need to take after my procedure? You will get a medicine that makes you sleep during treatment. It may affect you for the next 24 hours. ? Do not drive or go home alone. Someone must be with you until you get home. ? For 24 hours, do not make legal decisions, drive, or use dangerous equipment. ? You may continue taking your home medicines, unless your doctor tells you otherwise. When can I eat or drink? You may eat your normal diet, unless otherwise told by your doctor. Start with a small amount of bland foods and add other foods as tolerated. Spicy or greasy foods may cause nausea. How active can I be? You should move around as you are able. Do your normal activities if you feel you can. Sexual activity is fine, unless your doctor tells you otherwise. How do I find out my biopsy results? If you had a biopsy, it may take 7-10 days for results. These will be available in the patient portal, [employer]. Or you can call the doctor who ordered your procedure. When should I call the doctor? Call 911 right away or go to the nearest emergency department if you have any of these: ? Difficulty breathing ? Severe pain in the throat ? Severe pain in the chest or belly ? Vomiting that does not go away ? Fever of 101??F or higher ? Redness or tenderness of the IV site that lasts longer than 48 hours ? Any other symptoms that concern you These may be related to a complication and need medical attention. If you do not tell your doctor, the problem may get worse. Our contact information: For the Endoscopy Provider, call and ask for the Endoscopy Fellow on-call. * Wukarissa Mady - Thiago Hernández RN - 11/21/2024 10:52 AM EDT Images from the original note were not included. [id number] Anesthesia: Monitored Anesthesia Care (MAC) You?re going to have surgery. During surgery, you?ll be given medicine called anesthesia. This willkeep you comfortable and pain-free. Your surgeon will use monitored anesthesia care (MAC). This sheet tells you more about this type of anesthesia. What is monitored anesthesia care? MAC keeps you very drowsy during surgery. You may be awake, but you likely won't remember much. Andyou won?t feel pain. With MAC, medicines are given through an IV (intravenous) line into a vein in your arm or hand. A local anesthetic will also be injected into the skin and muscle around the surgical site to numb it. The anesthesia provider monitors you during the procedure. They check your heart rate and rhythm, blood pressure, and blood oxygen level. What to expect during your procedure You'll likely have: ? A pulse oximeter. This is a small device put on the end of your finger. This measures your blood oxygen level. ? Electrocardiography leads (electrodes). These are sticky pads put on your chest. They attach to wires. These lead to a device that records your heart rate and rhythm. ? Medicines given through an IV. These relax you and prevent pain. You may be awake or sleep lightly. If you have local anesthetic, it's injected directly into your skin. ? A face mask. This is to give you oxygen. This may be done if needed. Possible risks MAC has some risks. These include: ? Breathing problems ? Upset stomach (nausea) and vomiting ? Allergic reaction to the anesthetic Anesthesia safety Tips for anesthesia safety include: ? Follow all instructions for not eating or drinking before your procedure. ? Tell your healthcare provider all prescription and [id number] medicines you take. Tell themif you use any anti-inflammatory medicine or blood thinners. This includes aspirin. Tell them if you take any vitamins, herbs, or other supplements. ? Have an adult family member or friend drive you home after the procedure. For the first 24 hours after your surgery: ? Don't drive or use heavy equipment. ? Don't make important decisions or sign documents. ? Don't drink alcohol. ? Have someone stay with you, if possible. They can watch for problems and help keep you safe. Last Reviewed Date: 2023 00:00:00 ?? [id number] [employer]. All rights reserved. This information is not intended as a substitute for professional medical care. Always follow your healthcare professional's instructions. documented in this encounter Plan of Treatment Not on file documented as of this encounter Goals Goal Patient Goal Type Associated Problems Recent Progress Patient-Stated? Author Autogenerat ed Goal Care Plan Autogenerated Problem No Dawna Moss Autogenerat ed Goal Care Plan Autogenerated Problem No Dawna Moss documented as of this encounter Procedures Procedure Name Priority Date/Time Associated Diagnosis Comments POCT GLUCOSE METER UNSOLICITED RESULTS Routine 11/21/2024 11:58 AM EDT EGD Routine 11/21/2024 11:53 AM EDT Gastric polyp SURGICAL PATHOLOGY EXAM Routine 11/21/2024 11:35 AM EDT Gastric polyp POCT GLUCOSE METER UNSOLICITED RESULTS Routine 11/21/2024 11:19 AM EDT documented in this encounter Results * POCT glucose meter (11/21/2024 11:58 AM EDT) POCT Glucose 85 74 - 99 mg/dL 11/21/2024 12:07 PM EDT [facility] Comment:Accuracy of a glucos e result obtained from a capillary whole blood specimen relies upon adequate, non-compromised capillary blood flow. If the capillary glucose result is not consistent with the patient's clinical signs and symptoms, glucose testing should be repeated with either an arterial or venous sample on the glucometer or sent to the main labortory for testing. Comment 11/21/2024 12:07 PM EDT [facility] It Coordinator ID Mariela Rhoades 11/21/2024 12:07 PM EDT [facility] Device ID [id number] 11/21/2024 12:07 PM EDT [facility] Specimen Type POC Capillary 11/21/2024 12:07 PM EDT [facility] Blood Capillary blood specimen / Unknown 11/21/2024 11:58 AM EDT 11/21/2024 12:07 PM EDT us Clarice Stoner RN LAB POINT OF CARE TE ST DOCKED DEVICE UNSOLICITED RESULTS Final Result [facility] [address] [place] [address] * EGD (11/21/2024 11:53 AM EDT) Anatomical Region Laterality Modality Endoscopy Narrative 11/21/2024 12:02 PM EDT Table formatting from the original result was not included. Impression: The esophagus appeared normal. Medium sized hiatal hernia. Abnormal mucosa in the stomach. Granular congested mucosa along the gastric body and numerous sub centimeter mucosal nodules extending from the proximal stomach and throughout the body. Cold forceps biopsies taken from granular mucosa surrounding nodules. Several of the gastric nodules were removed with cold biopsy forceps. Cold forceps biopsies taken from the antrum. The duodenum appeared normal. Post Procedure Diagnosis None Recommendations Await pathology results The patient will be observed post-procedure, until all discharge criteria met. Resume previous diet. Await pathology results. Follow up with referring provider as previously schedule in [facility] multi-disciplinary group. Findings and recommendations discussed with Ms. Cm. Findings and recommendations to be conveyed to referring provider. Indication Follow up of abnormal EGD - gastric atypia and nodules Medications See anesthesia record for anesthesia administered medications. Staff Staff Role Jermaine Adams MD Proceduralist Clarice Stoner RN Endo Nurse Heather Sierra Endo Electrical Engineer Mep Ej Nogueira MD Anesthesiologist Tressa Salazar, DIRECTOR [employer], SHIRA DIRECTOR [employer] PUBL[employer]ER SALES Preprocedure A history and physical has been performed, and patient medication allergies have been reviewed. The patient's tolerance of previous anesthesia has been reviewed. The risks and benefits of the procedure and the sedation options and risks were discussed with the patient. All questions were answered and informed consent obtained. Details of the Procedure The patient underwent monitored anesthesia care, which was administered by an anesthesia professional. The patient's blood pressure, heart rate, level of consciousness, oxygen saturation and respirations were monitored throughout the procedure. The scope was introduced through the mouth and advanced to the second part of the duodenum. Retroflexion was performed in the cardia. The patient experienced no blood loss. The procedure was not difficult. The patient tolerated the procedure well. There were no apparent adverse events. Attestation I personally performed the entire procedure Specimens ID Type Source Tests Collected by Time A : antrum bxs Tissue Stomach SURGICAL PATHOLOGY EXAM Jermaine Adams MD 11/21/2024 1135 B : bxs polyps Tissue Stomach SURGICAL PATHOLOGY EXAM Jermaine Adams MD 11/21/2024 1138 C : body bxs Tissue Stomach SURGICAL PATHOLOGY EXAM Jermaine Adams MD 11/21/2024 1141 Findings The esophagus appeared normal. Medium sized hiatal hernia. Abnormal mucosa in the stomach. Granular congested mucosa along the gastric body and numerous sub centimeter mucosal nodules extending from the proximal stomach and throughout the body. Cold forceps biopsies taken from granular mucosa surrounding nodules. Several of the gastric nodules were removed with cold biopsy forceps. Cold forceps biopsies taken from the antrum. The duodenum appeared normal. us Jermaine Adams MD GI PROCEDURE ORDERABLES Final R esult * Surgical Pathology Exam (11/21/2024 11:35 AM EDT) Case Report Surgical Pathology Case: [id number] Authorizing Provider: Jermaine Adams MD Collected: 11/21/2024 1135 Ordering Location: [facility] Received: 11/21/2024 1310 Pathologist: Fernandez Herr DO Specimens: A) - Stomach, antrum bxs B) - Stomach, bxs polyps C) - Stomach, body bxs 11:[address] [facility] Final Diagnosis A. STOMACH, ANTRUM, BIOPSY: - FOCAL INTESTINAL METAPLASIA IN A BACKGROUND OF REACTIVE GASTROPATHY. - NEGATIVE FOR DYSPLASIA. - NO EVIDENCE OF HELICOBACTER-LIKE ORGANISMS ON ROUTINE STAIN. B. STOMACH, POLYPS, BIOPSY: - HYPERPLASTIC POLYP WITH PRIOR EROSION (SEE COMMENT). - PANCREATIC ACINAR METAPLASIA AND ENTEROCHROMAFFIN- LIKE CELL HYPERPLASIA. - NEGATIVE FOR INTESTINAL METAPLASIA OR DYSPLASIA. C. STOMACH, BODY, BIOPSY: - EXTENSIVE INTESTINAL METAPLASIA IN A BACKGROUND OF CHRONIC GASTRITIS. - NEGATIVE FOR DYSPLASIA. - FOCAL PANCREATIC ACINAR METAPLASIA AND ENTEROCHROMAFFIN- LIKE CELL HYPERPLASIA. - NEGATIVE FOR HELICOBACTER-LIKE ORGANISMS ON IMMUNOSTAIN. 11:[address] [facility] at 1134 EDT Comment The findings from the prior biopsy from 11/07/2024 are noted. The current biopsy specimens are negative for the described cells seen on the prior biopsy. Clinical and endoscopic correlation is recommended. 11:[address] [facility] Clinical Information K31.7 - Gastric polyp [ICD-10-CM] EGD findings: - Abnormal mucosa in the stomach. Granular congested mucosa along the gastric body and numerous sub centimeter mucosal nodules extending from the proximal stomach and throughout the body. Cold forceps biopsies taken from granular mucosa surrounding nodules. Several of the gastric nodules were removed with cold biopsy forceps. Cold forceps biopsies taken from the antrum. 5 11:34 AM T [facility] Special and Immunohistochemical Stains IHC: B1-2 Chromogranin A: Highlights the presence of enterochromaffin like cell hyperplasia. B1-3 Tolliver Cytokeratin AE1 AE3: Negative in cells of interest. B1-4 AS29-VH5: Positive in cells of interest. C1-2 Chromogranin A: Highlights the presence of enterochromaffin like cell hyperplasia. C1-3 H-Pylori : Negative. All controls show appropriate reactivity. All immunohistochemis try, in situ hybridization, and histochemical tests were developed by and are performed at the [facility], [address] [place] [address]. All tests reported here, except those addressing HER2 (breast) and PD-L1 expression as predictive markers, have not been cleared by or approved by the US Food and Drug Administration (FDA). The FDA has determined that such clearance or approval is not necessary. The laboratory is regulated under CLIA as qualified to perform high-complexity testing. The tests are used for clinical purposes. They should not be regarded as investigational or for research. This assay has not been validated on decalcified tissues. Results should be interpreted with caution given the likelihood of false negativity on decalcified specimens. 5 11:34 AM T [facility] Gross Description A. ANTRUM BXS Received in formalin labeled a ntrum biopsies , are 5 pink-leonardo soft fragments of tissue measuring from 0.2 cm to 0.4 cm in greatest dimension. Entirely submitted in cassette A1. Cold Time: <1m Morasharon Covarrubias B. BXS POLYPS Received in formalin labeled b iopsies polyps, stomach , are 4 pink-leonardo soft fragments of tissue measuring from 0.3 cm to 0.4 cm in greatest dimension. Entirely submitted in cassette B1. Cold Time: <1m Morasharon Covarrubias C. BODY BXS Received in formalin labeled b denise biopsies, stomach , are 5 red-leonardo soft fragments of tissue measuring from 0.2 cm to 0.5 cm in greatest dimension. Entirely submitted in cassette C1. Cold Time: <1m Mora Covarrubias 5 11:34 AM T [facility] Intradepartmental Consultation with Agreement Dr. Freeman 11:[address] [facility] Note: A resident was involved in the service. I attest I examined the relevant preparations for the specimens and confirmed the diagnosis or interpretation. 11:[address] [facility] Tissue Stomach structure / Unknown 11/21/2024 11:35 AM EDT 11/21/2024 1:10 PM EDT Tissue specimen (specimen) Stomach structure / Unknown 11/21/2024 11:38 AM EDT 11/21/2024 1:10 PM EDT Tissue specimen (specimen) Stomach structure / Unknown 11/21/2024 11:41 AM EDT 11/21/2024 1:10 PM EDT us Jermaine Adams MD LAB PATHOLOGY ORDERABLES Final Result [facility] [address] [place] [address] * POCT glucose meter (11/21/2024 11:19 AM EDT) POCT Glucose 98 74 - 99 mg/dL 11/21/2024 11:21 AM EDT [facility] Comment:Accuracy of a glucos e result obtained from a capillary whole blood specimen relies upon adequate, non-compromised capillary blood flow. If the capillary glucose result is not consistent with the patient's clinical signs and symptoms, glucose testing should be repeated with either an arterial or venous sample on the glucometer or sent to the main labortory for testing. Comment 11/21/2024 11:21 AM EDT [facility] It Coordinator ID Thiago Hernández [id number] 11:21 AM EDT [facility] Device ID [id number] 11/21/2024 11:21 AM EDT [facility] Specimen Type POC Capillary 11/21/2024 11:21 AM EDT [facility] Blood Capillary blood specimen / Unknown 11/21/2024 11:19 AM EDT 11/21/2024 11:21 AM EDT us Clarice Stoner [facility] POINT OF CARE TE ST DOCKED DEVICE UNSOLICITED RESULTS Final Result [facility] [address] [place] [address] documented in this encounter Visit Diagnoses Diagnosis Gastric polyp Benign neoplasm of stomach documented in this encounter Administered Medications Inactive Administered Medications - up to 3 most recent administrations Medication Order MAR Action Action Date Dose Rate Site simethicone (Mylicon) 20 mg/0.3 mL drops As needed, Starting on Tue11/21/24 at 1129, Until Tue11/21/24 at 1129, Routine, Intraprocedure Given 11/21/2024 11:29 AM EDT 80 mg Ot her documented in this encounter Additional Health Concerns Active Problems Noted Date Diagnosed Date Autogenerated Problem 10/17/2024 Autogenerated Problem 11/19/2024 Assessment Noted Time A fall risk assessment has been complete d for the patient 10/10/2024 9:18 AM EDT A Body Mass Index follow-up plan has been documented for the patient 10/13/2024 2:58 PM EDT documented as of this encounter Care Teams Eligibility Specialist Relationship Specialty Start Date End Date Harvinder Clifton MD [address] [place] [address] PCP - General 11/21/24 documented as of this encounter
--- OUTSIDE RECORDS SUMMARY | 2024-11-21 11:24 | XMS_ITS | Encounter Summary ---
Author Organization [facility] Address [address] [place] [address] Care Team Providers Care Completion Manager Name Role Phone Harvinder Clifton MD Primary Care Provider [phone] Encounter Details Date Type Department Care Team (Late st Contact Info) Description 11/21/2024 11:24 AM EDT Anesthesia Event [facility] [address] [place] [address] Ej Nogueira MD [address] [facility] [address] [place] [id number] Tressa Salazar, CRICKET, DNP [address] [place] [id number] Anesthesia Record Procedure Summary Procedure Name Responsible Anesthesiologist Anesthesia Start Time Anesthesia Stop Time EGD Ej Nogueira MD 11/21/24 1124 11/21/24 1200 Events Date Time Event Comment 11/21/2024 1112 1124 An Start The patient was reevaluated immediately before sedation and remains eligible for anesthesia plan. 1124 An Start Data 1124 In Room 1126 Anesthesia Ready 1128 Proc Start 1147 Proc Fin 1153 Out of Room 1156 an stop data 1159 Handoff to Receiving I compl eted my handoff to the receiving clinician during which we: 1. Identified the patient 2. Identified the responsible provider 3. Reviewed the pertinent medical history 4. Discussed the surgical course 5. Reviewed intra-op anesthesia management and issues during anesthesia 6. Set expectations for post-procedure period 7. Allowed opportunity for questions and acknowledgement of understanding. 1200 An Stop Meds Name Total propofol (Diprivan) injection 10 mg/mL 2 00 mg lidocaine PF (Xylocaine-MPF) 2% 60 mg lactated Ringer's infusion 0 mL * Agents No agents on file. * Blood No blood administrations on file. Lines, Drains, and Airways Type Details Placement Removal Peripheral IV Placement Date: 11/11 07/07; Placement Time: 1115; Catheter Size: 20 G; Orientation: Anterior, Right; Location: Forearm; Site Prep: Alcohol; Local Anesth: None; Technique: Anatomical landmarks; Insertion Attempts: 1; Patient Tolerance: Tolerated well; Removal Date: 11/21/24; Removal Time: 1238 11/21/24 1115 by Thiago Hernández RN 11/21/24 1238 by Isha Riggs RN documented in this encounter Social History Tobacco Use Types Packs/Day Years Used Date Smoking Tobacco: Every Day Cigarettes 0.5 54.6 Started: 1971 Passive Smoke Exposure: Past Smokeless Tobacco: Never [...] on file documented as of this encounter Miscellaneous Notes * Anesthesia Postprocedure Evaluation - Tressa Salazar CRNA, DNP - 11/21/2024 11:59 AM EDT Patient: Rosa Cm Anesthesia Type: general Vitals Value Taken Time BP 114/71 11/21/24 11:55 Temp 11/21/24 11:59 Pulse 64 11/21/24 11:58 Resp 21 11/21/24 11:58 SpO2 100 % 11/21/24 11:58 Vitals shown include unfiled device data. Anesthesia Post Evaluation Patient location during evaluation: PACU Patient participation: complete - patient participated Level of consciousness: baseline Pain management: adequate (pain score 0-3) Respiratory status: acceptable Hydration status: acceptable No notable events documented. * Anesthesia Preprocedure Evaluation - Fahad Lanza MD - 11/21/2024 11:03 AM EDT Patient: Rosa Cm Procedure Information Date/Time: 11/07/24 1100 Scheduled providers: Jermaine Adams MD; Jeffery Sanchez RN Procedure: EUS (UPPER) Location: [facility] Relevant Problems Cardio (+) Hypertension Other (+) Arthritis ROS Anesthesia: history of previous anesthesia. Cardiovascular: CAD. hypertension: Gastrointestinal: GI malignancy. GI/ additional comments: H/x colon cancer Hematological/Lymphatic: history of chemotherapy history of radiation Clinical information reviewed: HPI Rosa Cm is a 74 y.o. female who presents with Pancreatic Cyst. Now scheduled for ENDOSCOPIC ULTRASOUND (UPPER). 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 Cardiovascular disease Essential (primary) hypertension Hypertension Personal history of other diseases of the musculoskeletal system and connective tissue History of joint pain Unspecified osteoarthritis, unspecified site Arthritis [Family History] [Family History] Problem Relation Cataracts Brother Rd Hyperthermia Neg Hx Anesthesia problems Neg Hx [Social History] [Social History] Tobacco Use Smoking status: Every Day Current packs/day: 0.50 Average packs/day: 0.5 packs/day for 54.4 years (27.2 ttl pk-yrs) Types: Cigarettes Start date: 1970 Passive exposure: Past Smokeless tobacco: Never Vaping Use Vaping status: Never Used Substance Use Topics Alcohol use: Yes Comment: total 3 beer limit each evening, 2 times a week. Drug use: Never SURGICAL HISTORY: Procedure Laterality Date CATARACT EXTRACTION Right 2014 Cataract Extraction from [employer] CATARACT EXTRACTION Left 09/27/2022 EAR SURGERY Right 2009 s/p replaced ear drum HYSTERECTOMY 2004 [Allergies] [Allergies] Allergen Reactions Amoxicillin Hives Sulfa Drugs Hives MEDICATIONS: Current Outpatient Medications: atorvastatin, Take 1 tablet by mouth every morning. bisoprolol, Take 1 tablet by mouth every morning. ciprofloxacin-dexamethasone, Administer 2 drops into the right ear 2 times a day. furosemide, Take 1 tablet by mouth every morning. lisinopril, Take 1 tablet by mouth every morning. ofloxacin, Administer 1 drop into the left eye 3 (three) times a day. (Patient not taking: Reportedon 11/01/2024) 11/01/2024 10:26 AM Vitals Weight (kg) 44.453 kg BMI 15.82 kg/m2 BSA (m2) 1.44 m2 Lab Results Component Value Date WBC 4.91 10/10/2024 HGB 13.0 10/10/2024 HCT 39.4 10/10/2024 MCV 99 (H) 10/10/2024 PLT 153 (L) 10/10/2024 Lab Results Component Value Date GLUCOSE 91 10/10/2024 CALCIUM 9.1 10/10/2024 NA 138 10/10/2024 K 4.0 10/10/2024 CO2 27 10/10/2024 CL 102 10/10/2024 BUN 13 10/10/2024 CREATININE 0.55 (L) 10/10/2024 ROS Anesthesia: Date of last anesthetic: 2009 - GA with Right ear surgery. No problems with GA. Does not have a history of anesthetic complications, malignant hyperthermia, motion sickness, obstructive sleep apnea and PONV. Anesthesia ROS additional comments: Can lay flat on back or side. Able to move head/neck without trouble, and able to open mouth wide, per pt. Via phone. Cardiovascular: CAD (s/p 1 stent placed (03/07/14).) and hyperlipidemia. Does not have angina, atrial fibrillation, CHF, dyspnea, dysrhythmias, murmur, past VT or syncope. hypertension: is well controlled. Exercise tolerance is 2 flights of stairs. Does not have chest pain. Cardio additional comments: 02/28/2024 - Cards - CAD present and likely stable. LHC (07/2023) mild CAD of L main, LAD, RCA and Cx. Severe disease of 2 mm diagonal, relegated to medical therapy. BP stable. Echo (06/2023) normal LV systolic function, mild RV dilation with mild reduced RV function. No sig nificant valve disease. EKG is NSR, rate is 78 bpm. Continue current meds, per Balbir Moran, ANDREW. 07/26/23 - [facility] - coronary disease primarily confined to a first diagonal artery which is best managed medically normal EF. Normal LVEDP. 06/2023 - Echo - LVEF 50-55%. Insufficient TR jet to estimate RVSP. Valves are unremarkable. . Respiratory: Negative respiratory ROS.Does not have home oxygen. Patient has no dyspnea.no asthma: no COPD: Has not had an upper respiratory infection in last 30 days. Has not had COVID in the last 30 days. HEENT: missing teeth.Does not have difficulty swallowing, chipped teeth or loose teeth.Does not have temporomandibular joint syndrome (ears top & bottom dentures.). decreased vision (wears glasses.). Neurological: Negative neuro ROS. no seizures: Did not have a cerebrovascular accident.Does not have TIA. Musculoskeletal: arthritis (Hx OA.). Does not have multiple sclerosis. Autoimmune: Does not have lupus. Integumentary: Negative skin ROS. Gastrointestinal: Does not have GERD.GI malignancy (Hx colon cancer, s/p radiation and chemo tablets and chemo infusions. .). Does not have end stage liver disease or hepatitis. weight loss (weight loss of 22 lbs. in past 3 years (unintentional). weight loss due to and brother passing away in the past 2 years.). GI/ additional comments: pancreatic cyst. Genitourinary: Negative ROS. Does not have renal disease. Hematological/Lymphatic: History of no DVT. History of no pulmonary embolism. history of chemotherapy (completed 09/2024.) without cardiopulmonary complications. history of radiation (completed 09/2024.) without cardiopulmonary complications. Does not have AIDS, HIV, MRSA or tuberculosis. Endocrine/Metabolic: Negative endocrine ROS. does not have diabetes mellitus. Does not have thyroid disorder. Does not have gout. Lab Results Component Value Date WBC 4.91 10/10/2024 HGB 13.0 10/10/2024 HCT 39.4 10/10/2024 MCV 99 (H) 10/10/2024 PLT 153 (L) 10/10/2024 Lab Results Component Value Date GLUCOSE 91 10/10/2024 BUN 13 10/10/2024 CREATININE 0.55 (L) 10/10/2024 BCR 24 10/10/2024 NA 138 10/10/2024 K 4.0 10/10/2024 CL 102 10/10/2024 CO2 27 10/10/2024 ALBUMIN 4.2 10/10/2024 ALKPHOS 80 10/10/2024 BILITOT 0.5 10/10/2024 No results found for: HGBA1C No results found for: INR , PROTIME Visit to clinic Wt 44.5 kg (98 lb) BMI 15.82 kg/m?? Smoking Status Every Day BSA 1.44 m?? There were no vitals filed for this visit. NPO Status NPO > 8h Physical Exam Airway Mallampati: II Mouth opening: normal TM distance: >3 FB Neck ROM: full Upper lip bite test: III Cardiovascular Rhythm: regular Rate: normal Dental (+) upper dentures, lower dentures Pulmonary Breath sounds clear to auscultation Neurological Oriented: normal to time, normal to place and normal to person and oriented to person, place and time Skin Musculoskeletal Extremities Anesthesia Plan ASA 3 Plan was reviewed with: NETWORK SECURITY ANALYST Anesthesia technique(s) discussed with the patient/family: general Anesthesia plan agreed upon was: general Anesthetic plan and risks discussed with patient. The risks, options, and benefits of general anesthesia were discussed with the patient. All questions addressed. Rationale reviewed. Patient understands options prefers general anesthesia. Additional Equipment Requests Vascular Equipment: infusion pump Fahad Lanza MD Cosigned by Ej Nogueira MD at 11/21/2024 2:48 PM EDT Associated attestation - Ej Nogueira MD - 11/21/2024 2:48 PM EDT I agree with the findings and care plan documented in the preprocedure evaluation note. documented in this encounter Plan of Treatment Not on file documented as of this encounter Goals Goal Patient Goal Type Associated Problems Recent Progress Patient-Stated? Author Autogenerat ed Goal Care Plan Autogenerated Problem No Dawna Moss Autogenerat ed Goal Care Plan Autogenerated Problem No Dawna Moss documented as of this encounter Visit Diagnoses Not on filedocumented in this encounter Administered Medications Inactive Administered Medications - up to 3 most recent administrations Medication Order MAR Action Action Date Dose Rate Site lactated Ringer's infusion Intravenous, Continuous PRN, Starting on Tue11/21/24 at 1124, Until Tue11/21/24 at 1200, Routine New Bag 11/21/2024 11:24 AM EDT lidocaine PF (Xylocaine) 2 % injection Intravenous, As needed, Starting on Tue11/21/24 at 1126, Until Tue11/21/24 at 1200, Routine, Anesthesia Intraprocedure Given 11/21/2024 11:26 AM EDT 60 mg propofol (Diprivan) injection Intravenous, As needed, Starting on Tue11/21/24 at 1126, Until Tue11/21/24 at 1200, Routine, Anesthesia Intraprocedure Given 11/21/2024 11:45 AM EDT 50 mg Given 11/21/2024 11:38 AM EDT 20 mg Given 11/21/2024 11:34 AM EDT 30 mg documented in this encounter Additional Health Concerns Active Problems Noted Date Diagnosed Date Autogenerated Problem 10/17/2024 Autogenerated Problem 11/19/2024 Assessment Noted Time A fall risk assessment has been complete d for the patient 10/10/2024 9:18 AM EDT A Body Mass Index follow-up plan has been documented for the patient 10/13/2024 2:58 PM EDT documented as of this encounter Care Teams Completion Manager Relationship Specialty Start Date End Date Harvinder Clifton MD [address] [place] [address] PCP - General 11/21/24 documented as of this encounter
--- NOTE | 2025-01-08 | CA_ITS ---
APPROVED REPORT Exam: Pharmacologic Technologist: Sara Power Ht: 5 ft 6 in Wt: 98 lbs BSA: 1.48 m2 HR: 61 bpm BP: 119/65 mmHg Stress Test Details Test: Lexiscan HR Resting HR: 61 bpm Max Heart Rate (APMHR): 145.424762 bpm Max HR Achieved: 91 bpm Target HR (85% APMHR): 123.169070 bpm % of APMHR: 62.76 Recovery HR: 79 bpm BP Resting BP: 119.0/65.0 mmHg Max BP: 120.0/67.0 mmHg Recovery BP: 118.0/64.0 mmHg ECG Resting ECG: Sinus rhythm Stress ECG Conclusion Symptoms: Dyspnea, nausea, chest pain Arrhythmias/Ectopy: PVC, PAC ST-T Changes: Less than [address] depression. Conclusion: EKG unremarkable due to Lexiscan infusion. Electronically signed by : Sharee Rubio MD 01/08/2025 17:57:51
--- OUTSIDE RECORDS SUMMARY | 2025-01-08 07:52 | XMS_ITS | Continuity of Care Document ---
Author Name [facility] Organization [facility] Care Team Providers Care Rectifying Attendant Name Role Phone [facility] Unavailable Unavailable Medications Combined list of outpatient medications from Department of Defense and Veterans Affairs facilities.Medications provided include 1) outpatient medications from the last 15 months, and 2) patient-reported medications. Medication Details Route Status Patient Instructions Prescription Expires Prescription Number Last Dispense Date Ordering Provider Order Date Order Qty Source FLUTICASONE -SALMETEROL HFA (fluticason e propionate/ salmeterol xinafoate), 115-21MCG, HFA AER AD, INHALATION, [facility], 12 g CANISTER Active [id number] 2023 36 Pharmac y Data Transac tion Service Facilit y IPRATROPIUM -ALBUTEROL (ipratropiu m bromide/alb uterol sulfate), 0.5-3MG/3, AMPUL-NEB, INHALATION, [employer] 3 ml VIAL Active [id number] 2023 720 Pharmac y Data Transac tion Service Facilit y Social History Combined list of available smoking, tobacco, and other social history from Department of Defense and Veterans Affairs facilities. Social History Type Response Date Comment Sour e This section is an empty social history section. [facility]
--- OUTSIDE RECORDS SUMMARY | 2025-01-08 07:53 | XMS_ITS | Encounter Summary ---
Author Organization [facility] Address [address] [place] [address] Care Team Providers Care Radio Installer Automobile Name Role Phone Harvinder Clifton MD Primary Care Provider [phone] Encounter Details Date Type Department Care Team (Late st Contact Info) Description 11/26/2024 Telephone [facility] [address] [place] [address] Jermaine Adams MD [address] [facility] [address] [place] [address] Social History Tobacco Use Types Packs/Day Years [...] as of this encounter Miscellaneous Notes * Telephone Encounter - Selena Phoenix LPN - 12/18/2024 11:16 AM EDT Called and got patient scheduled for a follow up appointment with Dr. Coles to discuss procedure results and POC. Patient notified. documented in this encounter Plan of Treatment Not on file documented as of this encounter Goals Goal Patient Goal Type Associated Problems Recent Progress Patient-Stated? Author Autogenerat ed Goal Care Plan Autogenerated Problem No Dawna Moss Autogenerat ed Goal Care Plan Autogenerated Problem No Dawna Moss documented as of this encounter Visit Diagnoses Not on filedocumented in this encounter Additional Health Concerns Active Problems Noted Date Diagnosed Date Autogenerated Problem 10/17/2024 Autogenerated Problem 11/19/2024 Assessment Noted Time A fall risk assessment has been complete d for the patient 10/10/2024 9:18 AM EDT A Body Mass Index follow-up plan has been documented for the patient 10/13/2024 2:58 PM EDT documented as of this encounter Care Teams Radio Installer Automobile Relationship Specialty Start Date End Date Harvinder Clifton MD [address] [place] [address] PCP - General 11/21/24 documented as of this encounter
--- OUTSIDE RECORDS SUMMARY | 2025-01-08 07:53 | XMS_ITS | Encounter Summary ---
Author Organization [facility] Address [address] [place] [address] Care Team Providers Care Processing Lead Name Role Phone Harvinder Clifton MD Primary Care Provider [phone] Encounter Details Date Type Department Care Team (Latest Contact Info) Description 11/21/2024 Travel Social History Tobacco Use Types Packs/Day Years [...] on file documented as of this encounter Plan of Treatment Not on [...] documented as of this encounter Care Teams Processing Lead Relationship Specialty Start Date End Date Harvinder Clifton MD [address] [place] [address] PCP - General 11/21/24 documented as of this encounter
--- OUTSIDE RECORDS SUMMARY | 2025-01-08 07:53 | XMS_ITS | Clinical Summary ---
Author Organization [facility] Address [address] [place] [address] Care Team Providers Care Vb Net Developer Name Role Phone Harvinder Clifton MD Primary Care Provider [phone] Allergies Active Allergy Reactions Criticality Noted Date Comments Amoxicillin Hives Medium 02/21/2017 Sulfa Drugs Hives Medium 10/10/2024 Medications atorvastatin (Lipitor) 40 MG tablet Take 1 tablet by mouth every morning. 3 Active bisoprolol (Zebeta) 5 MG tablet Take 1 tablet by mouth every morning. 7 Active furosemide (Lasix) 20 MG tablet Take 1 tablet by mouth every morning. 3 Active lisinopril 5 MG tablet Take 1 tablet by mouth every morning. 2 Active ciprofloxacin-d examethasone (CiproDEX) otic suspension Administer 2 drops into the right ear 2 times a day. Active Potassium (POTASSIMIN PO) Take 1 tablet by mouth daily. Active cyanocobalamin 100 MCG tablet Take 1 tablet by mouth daily. 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, obscuring vision 02/21/2017 Encounters Date Type Department Care Team Description 11/26/2024 Telephone [facility] [address] [place] [address] Jermaine Adams MD 11/21/2024 11:24 AM EDT Anesthesia Event [facility] [address] [place] [phone] Ej Nogueira MD Woo, Melissa W, CRNA, DNP 11/21/2024 10:36 AM EDT - 11/21/2024 11:59 PM EDT Hospital Encounter [facility] [address] [place] [phone] Clarice Stoner, Jermaine Gutierrez MD Gastric polyp Discharge Disposition: Home or Self Care 11/21/2024 Travel 11/16/2024 Telephone [facility] [address] [place] [address] Jermaine Coles MD 11/07/2024 11:39 AM EDT Anesthesia Event [facility] [address] [place] [phone] John Morfin MD 11/07/2024 9:37 AM EDT - 11/07/2024 11:59 PM EDT Hospital Encounter [facility] [address] [place] [phone] Jermaine Adams MD Jovero, Bonnabille, RN Pancreatic mass Discharge Disposition: Home or Self Care 11/07/2024 Travel 11/01/2024 10:15 AM EDT Pre-Admission Testing [facility] [address], [address] [place] [address] 11/01/2024 Travel 10/19/2024 Telephone [facility] [address], [address] [place] [address] Harvinder Tyson MD 10/18/2024 Telephone [facility] [address], [address] [place] [id number] Harvinder Tyson MD 10/11/2024 Telephone [facility] [address] [place] [address] Yuliet Barboza Nurse Liaison call 10/10/2024 8:30 AM EDT Office Visit [facility] Mult[facility] On[facility] [address] [place] [address] Jermaine Coles MD Pancreatic mass (Primary Dx) 10/10/2024 Travel from Last 3 Months Family History Medical History Relation Name Comments Cataracts Brother Anesthesia problems Neg Hx Malig Hyperthermia Neg Hx Relation Name Status Comments Brother Social History Tobacco Use Types Packs/Day Years Used Date Smoking Tobacco: Every Day Cigarettes 0.5 54.6 Started: 1970 Passive Smoke Exposure: Past Smokeless Tobacco: Never Tobacco Cessation:Ready to Q uit: Not Asked; Counseling Given: Not Answered Alcohol Use Standard Drinks/Week Comments Yes 0 [...] on file Sexual Orientation Not on file Last Filed Vital Signs Vital Sign Reading [...] Mass Index 16.19 11/21/2024 11:05 AM EDT Plan of Treatment Health Maintenance Due Date Last Done Comments [facility]-Bone Density Scan 1950 [facility]-Hepatitis C Screening 1950 [facility]-Medicare Annual Wellness (AWV) 1950 [facility]-/Child/Adol SDOH Screenings 1950 [facility]- SDOH Screenings 10/26/1967 [facility]-Adult SDOH Screenings 10/26/1967 [facility]-DTaP,Tdap,and Td Vaccines (1 - Tdap) 1968 CT Colonography 1994 Colonoscopy 1994 FIT-DNA 1994 FIT 1994 FOBT 1994 Sigmoidoscopy 1994 [facility]-Colorectal Cancer Screening 1994 [facility]-Lung Cancer Screening 10/26/1999 [id number]-14 Vaccine (6 season) 2024 02/28/2024, 04/27/2023, 03/30/2022, Additional history exists [facility]-RSV Vaccine: 60+ Years or (1 - 1-dose 75+ series) 2024 [facility]-Influenza Vaccine (#1) 02/11/202502/27, 02/21/2023, 03/02/2021, Additional history exists [facility]-Depression Screening 10/10/2025 10/10/2024 [facility]-Zoster Vaccines Completed 01/20/2023, [facility]-Pneumococcal Vaccine: 50+ Years Completed 02/21/2023 HPV Vaccines Aged Out No longer eligi ble based on patient's age to complete this topic [facility]-HIB Vaccines Aged Out No longer e ligible based on patient's age to complete this topic [facility]-Hepatitis A Vaccines Aged Out No longer eligible based on patient's age to complete this topic [facility]-IPV Vaccines Aged Out No longer e ligible based on patient's age to complete this topic [facility]-Rotavirus Vaccines Aged Out No lo nger eligible based on patient's age to complete this topic Goals Goal Patient Goal Type Associated Problems Recent Progress Patient-Stated? Author Autogenerat ed Goal Care Plan Autogenerated Problem No Danwa Moss Autogenerat ed Goal Care Plan Autogenerated Problem No Dawna Moss Procedures Procedure Name Priority Date/Time Associated Diagnosis Comments POCT GLUCOSE METER UNSOLICITED RESULTS Routine 11/21/2024 11:58 AM EDT EGD Routine 11/21/2024 11:53 AM EDT Gastric polyp SURGICAL PATHOLOGY EXAM Routine 11/21/2024 11:35 AM EDT Gastric polyp POCT GLUCOSE METER UNSOLICITED RESULTS Routine 11/21/2024 11:19 AM EDT POCT GLUCOSE METER UNSOLICITED RESULTS Routine 11/07/2024 12:37 PM EDT EUS (UPPER) Routine 11/07/2024 12:26 PM EDT Pancreatic mass SURGICAL PATHOLOGY EXAM Routine 11/07/2024 11:53 AM EDT Pancreatic mass NE AN ELECTIVE ENDOTRACHEAL AIRWAY Routine 11/07/2024 11:44 AM EDT POCT GLUCOSE METER UNSOLICITED RESULTS Routine 11/07/2024 9:55 AM EDT COMPREHENSIVE METABOLIC PANEL, PLASMA Routine 10/10/2024 10:31 AM EDT Pancreatic mass CBC W/O DIFFERENTIAL Routine 10/10/2024 10:31 AM EDT Pancreatic mass CANCER ANTIGEN, GI (CA 19.9) Routine 10/10/2024 10:31 AM EDT Pancreatic mass from Last 3 Months Results * POCT glucose meter (11/21/2024 11:58 AM EDT) Only the most recent of4 resultswithin the time period is included. POCT Glucose 85 74 - 99 mg/dL 11/21/2024 12:07 PM EDT [facility] Comment:Accuracy of a glucos e result [...] for testing. Comment 11/21/2024 12:07 PM EDT [facility] Quality Control Operator ID Alex Rhoadesn 11/21/2024 12:07 PM EDT [facility] Device ID [id number] 11/21/2024 12:07 PM EDT [facility] Specimen Type POC Capillary 11/21/2024 12:07 PM EDT [facility] Blood Capillary blood specimen / Unknown 11/21/2024 11:58 AM EDT 11/21/2024 12:07 PM EDT us Clarice Stoner OPTOELECTRONIC TECHNICIAN POINT OF CARE TE ST DOCKED DEVICE UNSOLICITED RESULTS Final Result Performing Organization Address City/State/[facility] Co de Phone Number HEALTHCARE LAB [address] [place] [phone] * EGD (11/21/2024 11:53 AM EDT) Anatomical [...] with referring provider as previously schedule in [facility]. Findings and recommendations discussed with Ms. Cm. Findings and recommendations to be conveyed to referring provider. Indication Follow up of abnormal EGD - gastric atypia and nodules Medications See anesthesia record for anesthesia administered medications. Staff Staff Role Jermaine Adams MD Proceduralist Clarice Stoner RN Endo Nurse Heather Sierra Endo Revenue Field Auditor Ej Nogueira MD Anesthesiologist Tressa Salazar CRNA, SHIRA TRANSITION SOCIAL WORKER Preprocedure A history and physical has been [...] from the antrum. The duodenum appeared normal. Jermaine Adams MD GI PROCEDURE ORDERABLES Final R esult * Surgical Pathology Exam (11/21/2024 11:35 AM EDT) Only the most recent of2 resultswithin the time period is included. Case Report Surgical Pathology Case: [id number] Authorizing Provider: Jermaine Adams MD Collected: 11/21/2024 1135 Ordering Location: [facility] Endoscopy Received: 11/21/2024 1310 Pathologist: Fernandez Herr DO Specimens: A) - Stomach, antrum bxs B) - Stomach, bxs polyps C) - Stomach, body bxs 11:34 AM EDT [facility] Final Diagnosis A. STOMACH, ANTRUM, BIOPSY: - [...] - NEGATIVE FOR HELICOBACTER-LIKE ORGANISMS ON IMMUNOSTAIN. 5 11:34 AM EDT [facility] at 1134 EDT Comment The findings from the prior biopsy from 11/07/2024 are noted. The current biopsy specimens are negative for the described cells seen on the prior biopsy. Clinical and endoscopic correlation is recommended. 5 11:34 AM EDT [facility] Clinical Information K31.7 - Gastric [...] Cold forceps biopsies taken from the antrum. 11:34 AM EDT [facility] Special and Immunohistochemical Stains IHC: B1-2 Chromogranin A: Highlights the presence of enterochromaffin like cell hyperplasia. B1-3 Tolliver Cytokeratin AE1 AE3: Negative in cells of interest. B1-4 CG53-BT0: Positive in cells of interest. C1-2 Chromogranin A: Highlights the presence of enterochromaffin like cell hyperplasia. C1-3 H-Pylori : Negative. All controls show appropriate reactivity. All immunohistochemis try, in situ hybridization, and histochemical tests were developed by and are performed at the [facility], [address] [place] [address]. All tests reported here, except those addressing [...] negativity on decalcified specimens. 5 11:34 AM EDT [facility] Gross Description A. ANTRUM BXS Received in formalin labeled a ntrum biopsies , are 5 pink-leonardo soft fragments of tissue measuring from 0.2 cm to 0.4 cm in greatest dimension. Entirely submitted in cassette A1. Cold Time: <1m Mora C Satish B. BXS POLYPS Received in formalin labeled b iopsies polyps, stomach , are 4 pink-leonardo soft fragments of tissue measuring from 0.3 cm to 0.4 cm in greatest dimension. Entirely submitted in cassette B1. Cold Time: <1m Mora C Satish C. BODY BXS Received in formalin labeled b denise biopsies, stomach , are 5 red-leonardo soft fragments of tissue measuring from 0.2 cm to 0.5 cm in greatest dimension. Entirely submitted in cassette C1. Cold Time: <1m Mora C Satish 5 11:34 AM EDT [facility] Intradepartmental Consultation with Agreement Dr. Freeman 5 11:34 AM EDT [facility] Note: A resident was involved in the service. I attest I examined the relevant preparations for the specimens and confirmed the diagnosis or interpretation. 5 11:34 AM EDT [facility] Tissue Stomach structure / Unknown 11/21/2024 11:35 AM EDT 11/21/2024 1:10 PM EDT Tissue specimen (specimen) Stomach structure / Unknown 11/21/2024 11:38 AM EDT 11/21/2024 1:10 PM EDT Tissue specimen (specimen) Stomach structure / Unknown 11/21/2024 11:41 AM EDT 11/21/2024 1:10 PM EDT us Jermaine Adams MD LAB PATHOLOGY ORDERABLES Final Result [facility] [address] [place] [address] * EUS (Upper) (11/07/2024 12:26 PM EDT) Anatomical Region Laterality Modality Endoscopy Addenda Addendum by Jermaine Adams MD on 11/07/2024 1:09 PM EDT Table formatting from the original result was not included. Impression The esophagus appeared normal. Small type I hiatal hernia Multiple polyps in the body of the stomach. Cold forceps biopsies taken for histology. Endoscopic appearance is suggestive of benign fundic gland polyps. The duodenal bulb, 1st part of the duodenum and 2nd part of the duodenum appeared normal. EUS One anechoic and multilocular cyst measuring 12 mm with side branch connection and well-defined margins in the pancreas. Endosonographic appearance suggestive of side branch IPMN. The pancreas body and tail were normal. The head of pancreas and uncinate not well visualized on this exam. The pancreatic duct appeared normal. Pancreatic cysts with side branch connection consistent with side branch IPMN without worrisome features. Post Procedure Diagnosis Pancreatic cyst Recommendations The patient will be observed post-procedure, until all discharge criteria met. Resume previous diet. Follow up with referring provider in [facility] disciplinary [place] for ongoing surveillance. Findings and recommendations discussed with the Ms Cm and her sister. Findings and recommendations to be conveyed to referring provider. Await pathology results. Indication Abnormal MRI of the abdomen Medications See anesthesia record for anesthesia administered medications. Staff Staff Role Idania Constantino RN Endo Nurse John Morfin MD Anesthesiologist Jermaine Adams MD Proceduralist Priyanka Cohen CRNA CRNA Hansberry, Jolynn Endo Revenue Field Auditor Jeffery Sanchez RN Endo Nurse Heather Sierra Endo Revenue Field Auditor Hardik Hancock MD Proceduralist Preprocedure A history and physical has been performed, and patient medication allergies have been reviewed. The patient's tolerance of previous anesthesia has been reviewed. The risks and benefits of the procedure and the sedation options and risks were discussed with the patient. All questions were answered and informed consent obtained. Details of the Procedure The patient underwent general anesthesia, which was administered by an anesthesia professional. The patient's blood pressure, heart rate, level of consciousness, oxygen and respirations were monitored throughout the procedure. The scope was introduced through the mouth and advanced to the second part of the duodenum. Retroflexion was performed in the cardia, fundus and incisura. Ultrasound examination of the gastric region was performed using a linear scope. The patient experienced no blood loss. The procedure was not difficult. The patient tolerated the procedure well. Attestation I was present for the entire procedure Specimens ID Type Source Tests Collected by Time A : gastric nodules bx Tissue Stomach SURGICAL PATHOLOGY EXAM Jermaine Adams MD 11/07/2024 1153 Implants Implants Implant Type Site Status Size Editing User Findings EGD The esophagus appeared normal. Small sliding hiatal hernia (type I hiatal hernia) Multiple polyps measuring smaller than 5 mm in the body of the stomach; performed cold forceps biopsy with complete en bloc removal. Two of these polyps were sampled. The duodenal bulb, 1st part of the duodenum and 2nd part of the duodenum appeared normal. EUS One anechoic and multilocular cyst measuring 12 mm with connection with ducts and well-defined margins in the pancreas. The pancreas appeared normal in the body and tail. The head of pancreas and uncinate not well visualized on this exam. (Some difficulty with scope passage D1-D2 and area of interest, cyst, well visualized) The pancreatic duct appeared normal and measured 2 mm at the body. Jermaine Coles MD GI PROCEDURE ORDERABLES Edited R esult - Final * NE AN ELECTIVE ENDOTRACHEAL AIRWAY (11/07/2024 11:44 AM EDT) Narrative Priyanka Cohen CRNA - 11/07/2024 11:44 AM EDT Priyanka Cohen CRNA 11/07/2024 11:55 AM Airway Date/Time: 11/07/2024 11:44 AM Reason: elective Airway not difficult General Information and Staff Patient location during procedure: [place] TRANSITION SOCIAL WORKER: Priyanka Cohen CRNA Performed: TRANSITION SOCIAL WORKER Patient Condition Indications for airway management: anesthesia Patient position: sniffing Final Airway Details Final airway type: endotracheal airway Successful airway: ETT Cuffed: yes Successful intubation technique: direct laryngoscopy Adjuncts used in placement: intubating stylet Endotracheal tube insertion site: oral Blade: Husam Blade size: #3 ETT size (mm): 7.0 Cormack-Lehane Classification: grade I - full view of glottis Placement verified by: chest auscultation and capnometry Measured from: lips ETT to lips (cm): 20 Additional Comments Atraumatic. No change to dentition. us John Morfin MD ANESTHESIA ORDERABLES Final Resu lt * Cancer Antigen, GI (CA 19.9) (10/10/2024 10:31 AM EDT) CA 19.9 7.22 <36 U/mL 10/10/2024 12:07 PM EDT [facility] Blood Venous blood specimen / Unknown Venipuncture / Unknown 10/10/2024 10:31 AM EDT 10/10/2024 10:59 AM EDT Narrative [facility] - 10/10/2024 12:07 PM EDT Performed by Dewayne electrochemiluminescent immunoassay. Results obtained with different test methods or kits cannot be used interchangeably. us Jermaine Coles MD LAB BLOOD ORDERABLES Final Resul t [facility] [address] [place] [address] * (ABNORMAL) CBC W/O Differential (10/10/2024 10:31 AM EDT) WBC Count 4.91 3.70 - 10.30 10*3/uL LAB HEMATOLOGY METHOD 10/10/2024 11:15 AM EDT [facility] RBC Count 3.97 3.90 - 5.20 10*6/uL LAB HEMATOLOGY METHOD 10/10/2024 11:15 AM EDT [facility] HGB 13.0 11.2 - 15.7 g/dL LAB HEMATOLOGY METHOD 10/10/2024 11:15 AM EDT [facility] HCT 39.4 34.0 - 45.0 % LAB HEMATOLOGY METHOD 10/10/2024 11:15 AM EDT [facility] Platelet Count 153(L) 155 - 369 10*3/uL LAB HEMATOLOGY METHOD 10/10/2024 11:15 AM EDT [facility] MCV 99(H) 79 - 98 fL LAB HEMATOLOGY METHOD 10/10/2024 11:15 AM EDT [facility] MCH 32.7(H) 26.0 - 32.0 pg LAB HEMATOLOGY METHOD 10/10/2024 11:15 AM EDT [facility] MCHC 33.0 30.7 - 35.5 g/dL LAB HEMATOLOGY METHOD 10/10/2024 11:15 AM EDT [facility] RDW 12.2 11.5 - 14.5 % LAB HEMATOLOGY METHOD 10/10/2024 11:15 AM EDT [facility] MPV 10.1 8.8 - 12.5 fL LAB HEMATOLOGY METHOD 10/10/2024 11:15 AM EDT [facility] nRBC 0.0 <=0.0 per 100 WBCs LAB HEMATOLOGY METHOD 10/10/2024 11:15 AM EDT [facility] Blood Venous blood specimen / Unknown Venipuncture / Unknown 10/10/2024 10:31 AM EDT 10/10/2024 11:07 AM EDT us Jermaine Coles MD LAB BLOOD ORDERABLES Final Resul t [facility] [address] [place] [address] * (ABNORMAL) Comprehensive Metabolic Panel, Plasma (10/10/2024 10:31 AM EDT) Glucose, Plasma 91 74 - 99 mg/dL 10/10/2024 11:32 AM EDT [facility] BUN, Plasma 13 8 - 23 mg/dL 10/10/2024 11:32 AM EDT [facility] Creatinine, Plasma 0.55(L) 0.60 - 1.10 mg/dL 10/10/2024 11:32 AM EDT [facility] BUN/Creatinine Ratio 24 10/10/2024 11:32 AM EDT [facility] Sodium, Plasma 138 136 - 145 mmol/L 10/10/2024 11:32 AM EDT [facility] Potassium, Plasma 4.0 3.6 - 4.9 mmol/L 10/10/2024 11:32 AM EDT [facility] Chloride, Plasma 102 97 - 107 mmol/L 10/10/2024 11:32 AM EDT [facility] CO2, Plasma 27 22 - 29 mmol/L 10/10/2024 11:32 AM EDT [facility] Anion Gap 9 6 - 16 mmol/L 10/10/2024 11:32 AM EDT [facility] Total Calcium, Plasma 9.1 8.9 - 10.2 mg/dL 10/10/2024 11:32 AM EDT [facility] Total Protein 6.0(L) 6.3 - 7.9 g/dL 10/10/2024 11:32 AM EDT [facility] Albumin, Plasma 4.2 3.5 - 5.2 g/dL 10/10/2024 11:32 AM EDT [facility] AST, Plasma 24 10 - 35 U/L 10/10/2024 11:32 AM EDT [facility] ALT, Plasma 14 10 - 35 U/L 10/10/2024 11:32 AM EDT [facility] Alkaline Phosphatase, Plasma 80 46 - 142 U/L 10/10/2024 11:32 AM EDT [facility] Total Bilirubin, Plasma 0.5 0.2 - 1.1 mg/dL 10/10/2024 11:32 AM EDT [facility] eGFRcr 96.3 mL/min/1.7 3m*2 10/10/2024 11:32 AM EDT [facility] Comment:Reported eGFRcr in m L/min/1.73m2 is based the CKD-EPI 2020 equation that does not use a race coefficient. Blood Venous blood specimen / Unknown Venipuncture / Unknown 10/10/2024 10:31 AM EDT 10/10/2024 10:59 AM EDT us Jermaine Coles MD LAB BLOOD ORDERABLES Final Resul t [facility] [address] [place] [address] from Last 3 Months Additional Health Concerns Active Problems Noted Date Diagnosed Date Autogenerated Problem 10/17/2024 Autogenerated Problem 11/19/2024 Insurance [facility] MEDICARE Care Teams Vb Net Developer Relationship Specialty Start Date End Date Harvinder Clifton MD [address] [place] [address] PCP - General 11/21/24
--- OUTSIDE RECORDS SUMMARY | 2025-01-08 07:54 | XMS_ITS | Referral Summary ---
Author Organization [employer] ([place], [place], [place], [place]) Address [address] [place] [address] Care Team Providers Care Welder Apprentice Arc Name Role Phone Harvinder Clifton MD Primary Care Provider [phone] Social History Tobacco Use Types Packs/Day Years Used Date Smoking Tobacco: Never Assessed Food Insecurity Answer Date Recorded Food run out past 12 months Not on file 06/2023 Food did not last past 12 months Not on file 04/13/2024 Employment Answer Date Recorded Help finding and keeping a job Not on file 1 06/13/2023 Family and Community Support Answer He e Recorded Help with Day to Day Activities Not on file 04/13/2024 Feeling Lonely or Isolated Not on file 04/13 Educational Attainment Answer Date Robert rded Speak language other than Niuean at home Not on file 04/13/2024 Want help with school or training Not on file 04/13/2024 Substance Use Answer Date Recorded Used prescription meds for non-medical reasons N ot on file 04/13/2024 Used illegal drugs past 12 months Not on file 04/13/2024 Comments Unknown Sex and Gender Information Value Date Recorded Sex Assigned at Not on file Legal Sex Female 4:58 PM CDT Gender Identity Not on file Sexual Orientation Not on file Plan of Treatment Not on file Insurance [employer] MEDICARE PPO [facility] Care Teams Welder Apprentice Arc Relationship Specialty Start Date End Date Harvinder Clifton MD [address] [facility] [address] [place] [address] PCP - General Family Medicine 04/27/24
--- OUTSIDE RECORDS SUMMARY | 2025-01-08 07:54 | XMS_ITS | Clinical Summary ---
Author Organization [facility] ([place] Address [address] [place] [address] Care Team Providers Care Lighting Director Name Role Phone Harvinder Clifton MD Primary Care Provider [phone] Social History Tobacco Use Types Packs/Day Years [...] Date Robert rded Speak language other than Uruguayan at home Not on file 04/13/2024 Want [...] Orientation Not on file Plan of Treatment Health Maintenance Due Date Last Done Comments CT Colonography 1949 Colonoscopy 1949 Colorectal Cancer Screening 1949 DXA SCAN 1949 FOBT/FIT 1949 Fit-DNA (Cologuard) 1949 Sigmoidoscopy 1949 Depression Screening (12+) 1961 Tobacco Cessation Counseling and Screening (12+) 1961 Hepatitis C Screening 10/26/1967 DTAP/TDAP/TD VACCINES (1 - Tdap) 1968 Medicare Initial AWV [id number] 04/14/2023 COVID-19 VACCINE ( - season) 2024 03/30/2022, 05/14/2021, 08/21/2020 Falls Risk Screening 06/13/2024 Respiratory Syncytial Virus (RSV) Adult or (1 - 1-dose 75+ series) 2024 Influenza Vaccine (#1) 2025 02/21/2023, 2019 Shingles Vaccine (Zoster) Completed 01/20/2023, 09/2022 Pneumococcal 50+ years Completed 02/21/2023 Insurance [employer] MEDICARE PPO [facility] Care Teams Lighting Director Relationship Specialty Start Date End Date Harvinder Clifton MD [address] [facility] [address] [place] [address] PCP - General Family Medicine 04/27/24
--- OUTSIDE RECORDS SUMMARY | 2025-01-08 07:54 | XMS_ITS | Encounter Summary ---
Author Organization [facility] Address [address] [id number] Care Team Providers Care Silk Screen Layout Drafter Name Role Phone Ester Menchaca Primary Care Provider [phone] Encounter Details Date Type Department Care Team ([facility] st Contact Info) Description 11/16/2024 Telephone [facility] [address] [place] [address] Jermaine Coles MD [address] [address] Social History Tobacco Use Types Packs/Day Years [...] encounter Miscellaneous Notes * Telephone Encounter - Mariela Spencer - 11/16/2024 1:56 PM EDT Patient Phone Message Reason for Call: Patient calling to ask about her results from her appt pancreas test. Best contact number and optimal time of day to reach caller: [phone] Note: Please do not reply to this message. Follow-up communication and further actions as a result of this message need to be communicated with the patient directly, if the patient is not active onMyChart. If the patient is active on MyChart, they will receive notification of the communication/outcome via [employer]. documented in this encounter Plan of Treatment Not on file documented as of this encounter Goals Goal Patient Goal Type Associated Problems Recent Progress Patient-Stated? Author Autogenerat ed Goal Care Plan Autogenerated Problem No Dawna Moss documented as of this encounter Visit Diagnoses Not on filedocumented in this encounter Additional Health Concerns Active Problems Noted Date Diagnosed Date Autogenerated Problem 10/17/2024 Assessment Noted Time A fall risk assessment has been complete d for the patient 10/10/2024 9:18 AM EDT A Body Mass Index follow-up plan has been documented for the patient 10/13/2024 2:58 PM EDT documented as of this encounter Care Teams Silk Screen Layout Drafter Relationship Specialty Start Date End Date Ester Menchaca PA [address] [place] [address] PCP - General 10/24/20 11/20/24 documented as of this encounter
--- OUTSIDE RECORDS SUMMARY | 2025-01-08 07:54 | XMS_ITS | Encounter Summary ---
Author Organization Healthcare Address [address] [place] [address] Care Team Providers Care Pipe Coverer And Insulator Name Role Phone Ester Menchaca Primary Care Provider Harvinder Clifton MD Primary Care Provider [phone] Encounter Details Date Type Department Care Team (Late st Contact Info) Description 09/03/2024 Orders Only External Location [address] [place] [address] Asaf Fraga PA [address] [place] [address] Social History Tobacco Use Types Packs/Day Years Used Date Smoking Tobacco: Every Day Comments Unknown Sex and Gender Information Value Date Recorded Sex Assigned at Not on file Legal Sex Female 6:47 PM EDT Gender Identity Not on file Sexual Orientation Not on file documented as of this encounter Plan of Treatment Not on file documented as of this encounter Procedures Procedure Name Priority Date/Time Associated Diagnosis Comments CT OUTSIDE IMAGES 09/03/2024 4:13 PM EDT documented in this encounter Results * CT OUTSIDE IMAGES (09/03/2024 4:13 PM EDT) Anatomical Region Laterality Modality Computed Tomogra phy 09/03/2024 4:13 PM EDT Asaf MORALES IMLiz CT PROCEDURES Final Result documented in this encounter Visit Diagnoses Not on filedocumented in this encounter Additional Health Concerns Assessment Noted Time A fall risk assessment has been complete d for the patient 10/06/2022 10:50 AM EDT documented as of this encounter Care Teams Pipe Coverer And Insulator Relationship Specialty Start Date End Date Ester Menchaca PA [address] [place] [address] PCP - General 10/24/20 11/20/24 Harvinder Clifton MD [address] [place] [address] PCP - General 11/21/24 documented as of this encounter
--- OUTSIDE RECORDS SUMMARY | 2025-01-08 07:54 | XMS_ITS | Encounter Summary ---
Author Organization Healthcare Address [address] [place] [address] Care Team Providers Care Seed Potato Cutter Name Role Phone Ester Menchaca Primary Care Provider Harvinder Clifton MD Primary Care Provider [phone] Encounter Details Date Type Department Care Team (Late st Contact Info) Description 04/17/2024 Orders Only External Location [address] [place] [address] Provider, External Social History Tobacco Use Types Packs/Day Years [...] Date/Time Associated Diagnosis Comments CT OUTSIDE IMAGES 04/17/2024 9:23 AM EST documented in this encounter Results * CT OUTSIDE IMAGES (04/17/2024 9:23 AM EST) Anatomical Region Laterality Modality Computed Tomogra phy 04/17/2024 9:23 AM EST us External Provider IMG CT PROCEDURES Final Result documented in this encounter Visit Diagnoses Not on filedocumented in this encounter Additional Health Concerns Assessment Noted Time A fall risk assessment has been complete d for the patient 10/06/2022 10:50 AM EDT documented as of this encounter Care Teams Seed Potato Cutter Relationship Specialty Start Date End Date Ester Menchaca PA [address] [place] [address] PCP - General 10/24/20 11/20/24 Harvinder Clifton MD [address] [facility] [address] [place] [address] PCP - General 11/21/24 documented as of this encounter
--- OUTSIDE RECORDS SUMMARY | 2025-01-08 07:54 | XMS_ITS | Encounter Summary ---
Author Organization Healthcare Address [address] [place] [address] Care Team Providers Care Circuit Board Inspector Name Role Phone Ester Menchaca Primary Care Provider Harvinder Clifton MD Primary Care Provider [phone] Encounter Details Date Type Department Care Team (Late st Contact Info) Description 09/25/2024 Orders Only External Location [address] [place] [address] Provider, External Social History Tobacco Use Types [...] Procedure Name Priority Date/Time Associated Diagnosis Comments MR OUTSIDE IMAGES 09/25/2024 11:32 AM EDT documented in this encounter Results * MR transfer of outside films (09/25/2024 11:32 AM EDT) Anatomical Region Laterality Modality Magnetic Resonan ce 09/25/2024 11:3 2 AM EDT us External Provider IMG MRI PROCEDURES Final Resul t documented in this encounter Visit Diagnoses Not on filedocumented in this encounter Additional Health Concerns Assessment Noted Time A fall risk assessment has been complete d for the patient 10/06/2022 10:50 AM EDT documented as of this encounter Care Teams Circuit Board Inspector Relationship Specialty Start Date End Date Ester Menchaca PA [address] [place] [address] PCP - General 10/24/20 11/20/24 Harvinder Clifton MD [address] [facility] [place] [address] PCP - General 11/21/24 documented as of this encounter
--- OUTSIDE RECORDS SUMMARY | 2025-01-08 07:54 | XMS_ITS | Encounter Summary ---
Author Organization Healthcare Address [address] [place] [address] Care Team Providers Care Liner Checker Name Role Phone Ester Menchaca Primary Care Provider [phone] Harvinder Clifton MD Primary Care Provider [phone] Encounter Details Date Type Department Care Team (Late st Contact Info) Description 09/03/2024 Orders Only External Location [address] [place] [address] Asaf Fraga PA [address] [place] [address] Social History Tobacco Use Types Packs/Day Years [...] Associated Diagnosis Comments CT OUTSIDE IMAGES 09/03/2024 4:16 PM EDT documented in this encounter Results * CT OUTSIDE IMAGES (09/03/2024 4:16 PM EDT) Anatomical Region Laterality Modality Computed Tomogra phy 09/03/2024 4:16 PM EDT Asaf MORALES IMLiz CT PROCEDURES Final Result documented in this encounter Visit Diagnoses Not on filedocumented in this encounter Additional Health Concerns Assessment Noted Time A fall risk assessment has been complete d for the patient 10/06/2022 10:50 AM EDT documented as of this encounter Care Teams Liner Checker Relationship Specialty Start Date End Date Ester Menchaca PA [address] [place] [address] PCP - General 10/24/20 11/20/24 Harvinder Clifton MD [address] [place] [address] PCP - General 11/21/24 documented as of this encounter
--- OUTSIDE RECORDS SUMMARY | 2025-01-08 07:54 | XMS_ITS | Encounter Summary ---
Author Organization [employer] ([place], [place], [place], [place]) Address [address] [place] [address] Care Team Providers Care Clinical Rehabilitation Specialist Name Role Phone Harvinder Clifton MD Primary Care Provider [phone] Encounter Details Date Type Department Care Team (Late st Contact Info) Description 04/13/2024 Outside Orders [facility] Central Scheduling [address] [place] [address] Hollis Roper MD [address] [facility] [address], [place] [id number] Anal cancer (HCC) (Primary Dx) Social History Tobacco Use Types Packs/Day Years [...] Date Robert rded Speak language other than Libyan at home Not on file 04/13/2024 Want [...] on file documented as of this encounter Visit Diagnoses Diagnosis 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
--- OUTSIDE RECORDS SUMMARY | 2025-01-08 07:54 | XMS_ITS | Encounter Summary ---
Author Organization Healthcare Address [address] [place] [address] Care Team Providers Care Highway Design Engineer Name Role Phone Ester Menchaca Primary Care Provider Harvinder Clifton MD Primary Care Provider [phone] Encounter Details Date Type Department Care Team (Late st Contact Info) Description 08/23/2024 Orders Only External Location [address] [place] [address] Provider, External Social History Tobacco Use Types [...] Procedure Name Priority Date/Time Associated Diagnosis Comments US OUTSIDE IMAGES 08/23/2024 10:33 AM EDT documented in this encounter Results * US OUTSIDE IMAGES (08/23/2024 10:33 AM EDT) Anatomical Region Laterality Modality Ultrasound 08/23/2024 10:3 3 AM EDT us External Provider IMG US PROCEDURES Final Result documented in this encounter Visit Diagnoses Not on filedocumented in this encounter Additional Health Concerns Assessment Noted Time A fall risk assessment has been complete d for the patient 10/06/2022 10:50 AM EDT documented as of this encounter Care Teams Highway Design Engineer Relationship Specialty Start Date End Date Ester Menchaca PA [address] [place] [address] PCP - General 10/24/20 11/20/24 Harvinder Clifton MD [address] [place] [address] PCP - General 11/21/24 documented as of this encounter
--- OUTSIDE RECORDS SUMMARY | 2025-01-08 07:54 | XMS_ITS | Encounter Summary ---
Author Organization Healthcare Address [address] [place] [address] Care Team Providers Care Online Producer Name Role Phone Ester Menchaca Primary Care Provider Harvinder Clifton MD Primary Care Provider [phone] Encounter Details Date Type Department Care Team (Late st Contact Info) Description 04/17/2024 Orders Only External Location [address] [place] [address] Provider, External Social History Tobacco Use Types [...] documented as of this encounter Care Teams Online Producer Relationship Specialty Start Date End Date Ester Menchaca PA [address] [place] [address] PCP - General 10/24/20 11/20/24 Harvinder Clifton MD [address] [facility] [address] [place] [address] PCP - General 11/21/24 documented as of this encounter
--- OUTSIDE RECORDS SUMMARY | 2025-01-08 07:54 | XMS_ITS | Clinical Summary ---
Author Organization [facility] Address [address] [place] [address] Care Team Providers Care Senior Officer Name Role Phone Unavailable Primary Care Provider Unavailabl e Social History Tobacco Use Types Packs/Day Years Used Date Smoking Tobacco: Never Assessed Abuse Screen Answer Date Recorded Unsafe at Home or Work/School Not on file Feels Threatened by Someone? Not on file 03/2023 Does Anyone Keep You from Co ntacting Others or Doint Things Outside the Home? Not on file 03/22/2023 Physical Sign of Abuse Present Not on file 1 Housing Stability Answer Date Recorded Current Living Arrangements Not on file 03/13 Potentially Unsafe Housing Conditions Not on vickey e 03/22/2023 Family and Community Support Answer He e Recorded Help with Day-to-Day Activities Not on file 03/22/2023 Lonely or Isolated Not on file 03/22/2023 Employment Answer Date Recorded Do you want help finding or keeping work or a augie b? Not on file 03/22/2023 Disabilities Answer Date Recorded Concentrating, Remembering, or Making Decisions Difficulty Not on file 03/22/2023 Doing Errands Independently Difficulty Not on fi le 03/22/2023 Education Answer Date Recorded Help with school or training? Not on file Preferred Language Not on file 03/22/2023 Comments Unknown Sex and Gender Information Value Date Recorded Sex Assigned at Not on file Legal Sex Female 1:45 PM EDT Gender Identity Not on file Sexual Orientation Not on file Plan of Treatment Health Maintenance Due Date Last Done Comments ANNUAL PHYSICAL 1950 DXA SCAN 1950 HEPATITIS C SCREENING 1949 TDAP/TD VACCINES (1 - Tdap) 1968 COLOGUARD 1994 COLON CANCER SCREENING 5 YEAR SIGMOIDOSCOPY 1994 COLONOSCOPY 1994 [address] CANCER SCREENING 1994 CT COLONOGRAPHY 1994 FECAL OCCULT BLOOD TEST 1994 FIT Testing (1 year) 1994 Pneumococcal Vaccine 50+ (1 of 1 - PCV) 10/26/1999 ZOSTER VACCINE (1 of 2) 10/26/1999 COVID-19 Vaccine (1 - 2023-25 season) 2024 RSV Vaccine - Adults (1 - 1-dose 75+ series) INFLUENZA VACCINE 03/13/2025
--- NOTE | 2025-01-08 08:00 | NM_ITS ---
APPROVED REPORT Exam: Nuclear Stress Test Indication: Palpitations, Fatigue, HTN, High cholesterol, Tobacco use, CAD Patient Location: Outpatient Stress Tech: Sara Power NM Tech:Tianna Edge, ARRT, RT (R)(N) Ht: 5 ft 6 in Wt: 96 lbs Bra Size: 34C HR: 61 bpm BP: 119/65 mmHg BSA: 1.46 m2 TID: 1.26 BMI: 15.4 History: Palpitations, Fatigue, HTN, High cholesterol, Tobacco use, CAD Procedure: Patient received 0.4 mg of intravenous Lexiscan, resting heart rate 61 bpm, resting blood pressure 119/65 mmHg, with Lexiscan maximum heart rate achieved was 92 bpm which is % of the maximum predicted heart rate and blood pressure was 120/67 mmHg. With Lexiscan, patient denied any complaint of chest pain. Cardiac Stress and Resting SPECT Images: Cardiac Stress and Resting SPECT images were obtained using technetium 99m Myoview 32.7 mCi stress and 10.12 mCi at rest. Resting and stress imaging in supine and prone positions demonstrate a medium-sized, moderate, fixed perfusion defect in the anterior LV wall. There is increase in transient ischemic dilatation (TID 1.26), which may be suggestive of possible multivessel disease or balanced ischemia. Gated imaging demonstrates normal global LV systolic function. LVEF is calculated at 58%. Conclusion: Medium-sized, moderate, fixed perfusion defect in the anterior LV wall. No evidence of focal reversible ischemia There is also increase in transient ischemic dilatation (TID 1.26), which may be suggestive of possible multivessel disease or balanced ischemia. Gated imaging demonstrates normal global LV systolic function. LVEF is calculated at 58%. Electronically signed by : Sharee Rubio MD 01/08/2025 17:52:16
[2025-01-08] MEDS: SODIUM CHLORIDE 0.9% 10ML SYR (RAD ONLY) 10 ML IV ×2 (09:01)
[2025-01-08] MEDS: ISOTOPE MYOVIEW (PER STUDY) 1 DOSE IV (09:02)
--- NOTE | 2025-01-08 10:30 | CA_ITS ---
APPROVED REPORT EXAM: Comprehensive 2D, Doppler, and color-flow Echocardiogram Oil Tanker Captain: Adeline Shelton RVT Ht: 5 ft 6 in Wt: 98lbs BSA: 1.48 BP: 107/62 mmHg Indications: Dyspnea, recent exposure to chemotherapy for colon cancer 2D Dimensions IVSd 0.56 cm F: 0.6-1.0 LVEF (Visual) 57.60 % PWd 0.67 cm F: 0.6 - 1.0 LA Volume 23.80 mL LVDd 4.42 cm F: 3.9 - 5.3 LA Volume Index 16.08 mL/m2 (M/F) 16-34 LVDs 3.09 cm F: 2.2 - 3.5 M-Mode Dimensions RVDd 2.53 cm (0.9-2.6) LA Diam 3.02 cm (1.9-4.0) LVDd 3.55 cm (3.5-5.7) LVDs 1.98 cm (3.5-5.7) IVSd 0.67 cm (0.6-1.1) PWd 0.44 cm (0.6-1.1) EF (Teich) 76.40% FS 44.20% EDV (Teich) 52.60 mL TAPSE 2.10 (<1.7) ESV (Teich) 12.40 mL LV Diastology E Decel Time 180 (160-240 msec) E/A Ratio 1.1 Aortic Valve ANGELA Index 1.32 cm2/m2 AoV Peak Coleman. 94.0 (50-130 cm/s) AO Peak GR. 3.60 mmHg AO Mean GR. 2.10 (<5 mmHg) AO VTI 23.3 (18-25 cm) ANGELA (VTI) 1.99 (2.5-4.5 cm2) Mitral Valve MV E Max Coleman. 69.0 (40-130 cm/s) MV A Velocity 62.0 (40-130 cm/s) E/A Ratio 1.13 MV PHT 53.0 ms Pulmonary Valve PV Peak Velocity 59.0 (50-150 cm/s) Tricuspid Valve TR P. Velocity 223.00 cm/s RAP Estimate 10.00 mmHg RVSP 29.80 mmHg Left Ventricle The left ventricle is normal size. The left ventricular systolic function is normal. The left ventricular ejection fraction is within the normal range. There is normal left ventricular wall thickness. There is normal LV segmental wall motion. The left ventricular diastolic function is normal. LVEF is 55%. Right Ventricle The right ventricle is mildly dilated. The right ventricular systolic function is normal. Atria Left atrium is mildly dilated. Right atrium is mildly dilated. Aortic Valve Aortic valve is mildly thickened. There is no aortic valvular stenosis. Trace aortic regurgitation is present. Mitral Valve Mitral valve is normal in structure. No evidence of mitral valve stenosis. Mild mitral regurgitation. Tricuspid Valve Tricuspid valve is grossly normal in structure and function. Mild tricuspid regurgitation. RVSP is 20-25 mmHg. Pulmonic Valve The pulmonary valve is normal in structure. Trace pulmonic regurgitation. Great Vessels The aortic root is normal in size. IVC is normal in size and collapses >50% with inspiration. Pericardium There is no pericardial effusion. Other Information Study Quality: Fair Conclusion Normal biventricular systolic function. Mild RV dilation. Mild biatrial dilation. Mild MR, mild TR. Electronically signed by : Sharee Rubio MD 01/08/2025 19:56:45
== END 2025-01-08 23:59 | disposition home or self-care (01) ==
LOC: RAD 07:51
PROVIDERS: PCP Family Medicine; Visit Provider Nurse Practitioner Family
DX: I08.1 Rheumatic disorders of both mitral and tricuspid valves (principal); I11.9 Hypertensive heart disease without heart failure; I49.1 Atrial premature depolarization; I49.3 Ventricular premature depolarization; R94.39 Abnormal result of other cardiovascular function study; I25.10 Atherosclerotic heart disease of native coronary artery without angina pectoris; E78.00 Pure hypercholesterolemia, unspecified; Z72.0 Tobacco use
CPT/HCPCS: 78452; 93016; 93017; 93018; 93306; A9502; J2785

== ENCOUNTER 2025-01-17 07:54 | Day surgery (SDC) | payer MEDICARE, OTHER, SELFPAY ==
[2025-01-17] VITALS (21 sets, daily range): BP systolic 76–103; BP diastolic 40–62; PULSE 51–71; RESP 11–20; TEMP 36.6; O2SAT 95–99; BMI 15.6; BMI 15.5
--- NOTE | 2025-01-17 07:46 | IR_ITS ---
APPROVED REPORT Patient Location: Outpatient PROCEDURES Left heart catheterization Left ventriculogram Selective coronary angiogram INDICATION Known coronary artery disease, Abnormal Myoview, Angina pectoris Informed consent was obtained prior to the procedure. COMPLICATIONS None Estimated Blood Loss: Less than 10 mls TECHNIQUE One percent lidocaine was used to anesthetize the right groin. The right femoral artery was accessed via the Seldinger technique. A 4-Romanian sheath was placed in the right femoral artery. The JL-4 and JR-4 catheter was also used to perform left heart catheterization left ventriculogram and selective coronary angiogram. At the end of the procedure the patient was transferred to the post-op holding area in stable condition for arterial sheath removal. ANGIOGRAPHIC RESULTS The left main artery Has an ostial 20% stenosis The left anterior descending artery Has a stent in the proximal segment which is widely patent with minimal concentric in-stent restenosis with excellent proximal distal transitioning. The remaining LAD is widely patent. There is a jailed first diagonal artery which is moderate in size and has a ostial proximal 80 to 90% stenosis followed by an additional mid vessel concentric 80% stenosis. This diagonal artery is 2 mm in diameter The circumflex artery Is nondominant and has proximal and mid vessel 30 to 40% stenosis The right coronary artery Is dominant with mild mid vessel 10% luminal regularities The MOTT ventriculogram reveals Normal 65% The left ventricular end-diastolic pressure 10 mmHg IMPRESSION Coronary disease as described above Severe stenosis in the first diagonal artery which is best managed medically as stenting would require bifurcating into the proximal LAD which increases the likelihood of in-stent restenosis in both the LAD and diagonal artery especially given the small caliber of both arteries. Typically a vessel of this size is unlikely to produce debilitating angina and is best managed medically PLAN 1. Maximize antianginal medications 2. Aggressive risk factor modification Electronically signed by : Walker Knowles MD 01/17/2025 10:14:38
[2025-01-17 08:26] LABS: Hematocrit 36.9 % (37.0-47.0); Hemoglobin 12.1 g/dL (12.2-16.2); Immature Granulocytes % 0.5 %; Mean Corpuscular HGB Conc 32.8 g/dL (31.8-35.4); Mean Corpuscular Hemoglobin 32.5 pg (27.0-31.2); Mean Corpuscular Volume 99.2 fl (81-99); Nucleated Red Blood Cells % 0 %; Platelet Count 166 K/mm3 (142-424); Red Blood Count 3.72 M/mm3 (4.20-5.40); Red Cell Distribution Width-SD 51.4 fL; White Blood Count 5.8 K/mm3 (4.8-10.8)
[2025-01-17 08:27] LABS: Chloride 102 mmol/L (98-107); Potassium 3.5 mmoL/L (3.5-5.1); Sodium 137 mmol/L (136-145)
[2025-01-17 08:30] LABS: Anion Gap 9.5 mEq/L (5-15); Blood Urea Nitrogen 12 mg/dl (7-17); Carbon Dioxide 29 mmol/L (22.0-30.0); Creatinine Clearance Estimated 34 mL/min (50-200); Creatinine,Serum 0.50 mg/dl (0.52-1.04); Estimated Glomerular Filt Rate 120 ml/min (>60); GFR (African American) 146 ML/MIN (>60)
[2025-01-17 08:31] LABS: Calcium 8.9 mg/dl (8.4-10.2); Glucose 91 mg/dl (74-100)
[2025-01-17] MEDS: 0.9 % SODIUM CHLORIDE 500 ML 25 ML IV (09:00)
[2025-01-17] MEDS: HEPARIN 1,000 UNITS/500ML NS (CATH LAB) 3000 UNIT IV (09:00)
[2025-01-17] MEDS: LIDOCAINE 1% 10ML MDV 10 ML IJ (09:00)
[2025-01-17] MEDS: FENTANYL 100MCG/2ML VIAL 50 MCG IV (09:01)
[2025-01-17] MEDS: MIDAZOLAM HCL 1MG/ML 5ML VIAL 1 MG IV (09:01)
--- NOTE | 2025-01-17 10:44 | SUR.PHASEII ---
All patient care and documentation provided by [employer] [employer] was completed under my direct supervision. Roseanne Prater RN
--- NOTE | 2025-01-17 10:47 | SUR.PHASEII ---
Pt arrive to the unit at approx 1030. pt lung sounds are clear throughout, bowel sounds are active in all quads. pt has gauze/tegaderm dressing to right groin. no s/s of bleeding or hematoma noted.
[2025-01-17] MEDS: IOPAMIDOL-370 (76%);100ML BOTTLE 30 ML IV (14:25)
== END 2025-01-17 13:48 | disposition home or self-care (01) ==
LOC: CATHLAB 07:55
PROVIDERS: PCP Family Medicine; Visit Provider Internal Medicine
PROC: 4A023N7 Measurement of Cardiac Sampling and Pressure, Left Heart, Percutaneous Approach (ICD-10-PCS; CPT 93452; principal; 2025-01-17 07:15)
DX: I25.118 Atherosclerotic heart disease of native coronary artery with other forms of angina pectoris (principal); R93.1 Abnormal findings on diagnostic imaging of heart and coronary circulation; J44.9 Chronic obstructive pulmonary disease, unspecified; Z85.038 Personal history of other malignant neoplasm of large intestine; I11.0 Hypertensive heart disease with heart failure; I50.32 Chronic diastolic (congestive) heart failure; E78.5 Hyperlipidemia, unspecified; F17.210 Nicotine dependence, cigarettes, uncomplicated; Z79.899 Other long term (current) drug therapy; Z95.5 Presence of coronary angioplasty implant and graft; Z88.0 Allergy status to penicillin; Z88.2 Allergy status to sulfonamides
CPT/HCPCS: 80048; 85025; 93452; 93458; 99152; C1725; C1769; J1200; J1644; J3010; J7040; Q9967